=== PATIENT | female | born 1955 | race Caucasian/White ===

== ENCOUNTER 2023-07-13 10:13 | Outpatient (CLI) | payer MEDICARE, BC, SELFPAY ==
--- NOTE | 2023-07-13 10:23 | ECHO_ITS ---
Patient Info Name: Thania Salmon Age: 67 years : 1955 Gender: Female Ht: 60 in Wt: 146 lbs BSA: 1.70 m2 HR: 65 bpm BP: 143 / 87 mmHg Heart Rhythm: Tachycardia Technical Quality: Good Exam Date: 07/13/2023 11:19 AM Exam Location: Echo Lab Patient Status: Outpatient Admit Date: 07/13/2023 Staff Ordering Physician: Avelino Reyes MD Dining Room Manager: Avelino Barron RDCS Attending Provider: Avelino Reyes MD Exam Type: CA echo doppler color flow Study Info Indications - chronic lymphocytic leukemia Complete two-dimensional, color flow and Doppler transthoracic echocardiogram is performed. Summary 1. Complete two-dimensional, color flow and Doppler transthoracic echocardiogram is performed. 2. Left ventricular chamber dimension is normal. 3. Left ventricular systolic function is normal, estimated at 60-65%. 4. The left ventricular diastolic function is grade I diastolic dysfunction. 5. E/e' 8 is minimally elevated. 6. The mitral valve has mildly calcified annulus. 7. There is trace tricuspid valve regurgitation. 8. No pulmonary hypertension, estimated pulmonary arterial systolic pressure is 30 mmHg. Left Ventricle E/e' 8 is minimally elevated. Left ventricular chamber dimension is normal. Left ventricular systolic function is normal, estimated at 60-65%. The left ventricular diastolic function is grade I diastolic dysfunction. Right Ventricle Right ventricular systolic function is normal and with normal TAPSE 2.3 cm. Right ventricular chamber dimension is normal. Left Atria Left atrial chamber dimension is normal. Right Atria Right atrial chamber dimension is normal. Aortic Valve The aortic valve is trileaflet. There is no aortic valve stenosis. There is no aortic valve regurgitation. Pulmonic Valve There is no pulmonic regurgitation. Mitral Valve The mitral valve has mildly calcified annulus. There is no mitral valve stenosis. There is no mitral valve regurgitation. Tricuspid Valve There is trace tricuspid valve regurgitation. No pulmonary hypertension, estimated pulmonary arterial systolic pressure is 30 mmHg. Pericardium/Pleural There is no pericardial effusion. Inferior Vena Cava Normal inferior vena cava with >50% collapse upon inspiration consistent with normal right atrial pressure, 5 mmHg. Aorta The aortic root size at the sinus of Valsalva is normal. Left Ventricular Outflow Tract Name Value Normal LVOT 2D LVOT Diameter 2.0 cm LVOT Doppler LVOT Peak Velocity 161 cm/s LVOT Peak Gradient 10 mmHg LVOT Mean Gradient 7 mmHg LVOT VTI 33 cm LVOT VTI/AV VTI Ratio 0.9 LVOT Stroke Volume 102 ml Pulmonic Valve Name Value Normal RVOT Doppler RVOT Peak Gradient 2 mmHg PV Doppler
== END 2023-07-13 10:14 | disposition home or self-care (01) ==
LOC: CHSIMG 10:16
PROVIDERS: PCP Family Medicine; Visit Provider Internal Medicine Hematology
DX: Z13.6 Encounter for screening for cardiovascular disorders (principal)
CPT/HCPCS: 93306

== ENCOUNTER 2023-08-27 11:29 | Outpatient (CLI) | payer MEDICARE, SELFPAY ==
[2023-08-27 12:11] LABS: Hematocrit 35.3 % (35.0-42.0); Hemoglobin 11.2 g/dL (11.7-13.8); Mean Corpuscular HGB Conc 31.7 g/dL (32.0-36.0); Mean Corpuscular Hemoglobin 31.5 pg (27.0-31.0); Mean Corpuscular Volume 99.4 fL (78.0-102.0); Mean Platelet Volume 9.6 fl (9.2-11.8); Platelet Count Result 135 K/mm3 (150-420); Red Blood Count 3.55 M/mm3 (4.20-5.40); Red Cell Distribution Width 14.1 % (11.6-14.4); White Blood Count 3.2 K/mm3 (4.8-10.8)
[2023-08-27 13:06] LABS: Total Cells Counted 100
[2023-08-27 13:07] LABS: Band Neutrophils Percent 0 % (0-6); Basophils Absolute Manual 0.03 K/mm3 (0-0.1); Basophils Percent Manual 1 % (0-1); Eosinophils Absolute Manual 0.06 K/mm3 (0.02-0.5); Eosinophils Percent Manual 2 % (1-6); Lymphocytes Absolute Manual 1.12 K/mm3 (1.1-4.5); Lymphocytes Percent Manual 35 % (18-44); Metamyelocytes Percent 0 %; Monocytes Absolute Manual 0.19 K/mm3 (0.1-0.90); Monocytes Percent Manual 6 % (3-9); Myelocytes Percent 0 %; Neutrophils Absolute Manual 1.79 K/mm3 (1.7-7.2); Neutrophils Percent Manual 56 % (46-73); Platelet Estimate Adequate (Adequate)
[2023-08-27 13:40] LABS: Alanine Aminotransferase 23 U/L (14-59); Albumin Level 4.1 g/dL (3.4-5.0); Alkaline Phosphatase 66 U/L (46-116); Anion Gap 4 mmol/L (8-16); Aspartate Amino Transferase 19 U/L (15-37); Bilirubin,Total 0.4 mg/dL (0.00-1.00); Blood Urea Nitrogen 13 mg/dL (7-18); Calcium 9.5 mg/dL (8.5-10.1); Carbon Dioxide 34 mmol/L (21-32); Chloride 105 mmol/L (98-108); Estimated Glomerular Filt Rate 56; Glucose 100 mg/dL (70-99); Osmolality Calculated 296 mOsm/kg (285-295); Potassium 4.6 mmol/L (3.5-5.1); Sodium 143 mmol/L (136-145); Total Protein 7.2 g/dL (6.4-8.2); Uric Acid 2.9 mg/dL (2.6-6.0)
== END 2023-08-27 11:30 | disposition home or self-care (01) ==
LOC: CHSLAB 11:32
PROVIDERS: PCP Internal Medicine Hematology; Visit Provider Internal Medicine Hematology
DX: C91.10 Chronic lymphocytic leukemia of B-cell type not having achieved remission (principal)
CPT/HCPCS: 36415; 80053; 84550; 85025

== ENCOUNTER 2023-09-08 10:25 | Outpatient (CLI) | payer MEDICARE, SELFPAY ==
[2023-09-08 10:49] LABS: Hematocrit 32.9 % (35.0-42.0); Hemoglobin 10.9 g/dL (11.7-13.8); Mean Corpuscular HGB Conc 33.1 g/dL (32.0-36.0); Mean Corpuscular Hemoglobin 32.1 pg (27.0-31.0); Mean Corpuscular Volume 96.8 fL (78.0-102.0); Mean Platelet Volume 9.4 fl (9.2-11.8); Platelet Count Result 121 K/mm3 (150-420); Red Cell Distribution Width 14.2 % (11.6-14.4); White Blood Count 3.5 K/mm3 (4.8-10.8)
[2023-09-08 11:10] LABS: Band Neutrophils Percent 0 % (0-6); Basophils Percent Manual 0 % (0-1); Eosinophils Absolute Manual 0.03 K/mm3 (0.02-0.5); Eosinophils Percent Manual 1 % (1-6); Lymphocytes Absolute Manual 0.73 K/mm3 (1.1-4.5); Lymphocytes Percent Manual 21 % (18-44); Monocytes Absolute Manual 0.49 K/mm3 (0.1-0.90); Monocytes Percent Manual 14 % (3-9); Neutrophils Absolute Manual 2.24 K/mm3 (1.7-7.2); Neutrophils Percent Manual 64 % (46-73); Platelet Estimate Adequate (Adequate); Total Cells Counted 100
[2023-09-08 11:42] LABS: Alanine Aminotransferase 8 U/L (14-59); Albumin Level 3.9 g/dL (3.4-5.0); Alkaline Phosphatase 67 U/L (46-116); Anion Gap 9 mmol/L (8-16); Aspartate Amino Transferase 18 U/L (15-37); Bilirubin,Total 0.4 mg/dL (0.00-1.00); Blood Urea Nitrogen 14 mg/dL (7-18); Calcium 8.6 mg/dL (8.5-10.1); Carbon Dioxide 27 mmol/L (21-32); Chloride 102 mmol/L (98-108); Estimated Glomerular Filt Rate > 60; Glucose 101 mg/dL (70-99); Lactate Dehydrogenase 116 U/L (81-234); Osmolality Calculated 286 mOsm/kg (285-295); Potassium 4.5 mmol/L (3.5-5.1); Sodium 138 mmol/L (136-145); Total Protein 7.1 g/dL (6.4-8.2)
== END 2023-09-08 10:26 | disposition home or self-care (01) ==
PROVIDERS: PCP Internal Medicine Hematology; Visit Provider Internal Medicine Hematology
DX: C91.10 Chronic lymphocytic leukemia of B-cell type not having achieved remission (principal)
CPT/HCPCS: 36415; 80053; 83615; 84550; 85025

== ENCOUNTER 2023-09-16 12:12 | Outpatient (CLI) | payer MEDICARE, SELFPAY ==
[2023-09-16 12:30] LABS: Hematocrit 32.9 % (35.0-42.0); Hemoglobin 10.9 g/dL (11.7-13.8); Mean Corpuscular HGB Conc 33.1 g/dL (32.0-36.0); Mean Corpuscular Volume 96.5 fL (78.0-102.0); Mean Platelet Volume 9.6 fl (9.2-11.8); Platelet Count Result 125 K/mm3 (150-420); Red Blood Count 3.41 M/mm3 (4.20-5.40); White Blood Count 2.7 K/mm3 (4.8-10.8)
[2023-09-16 12:44] LABS: Band Neutrophils Percent 0 % (0-6); Eosinophils Absolute Manual 0.02 K/mm3 (0.02-0.5); Eosinophils Percent Manual 1 % (1-6); Lymphocytes Absolute Manual 0.97 K/mm3 (1.1-4.5); Lymphocytes Percent Manual 36 % (18-44); Monocytes Absolute Manual 0.45 K/mm3 (0.1-0.90); Monocytes Percent Manual 17 % (3-9); Neutrophils Absolute Manual 1.24 K/mm3 (1.7-7.2); Neutrophils Percent Manual 46 % (46-73); Platelet Estimate Adequate (Adequate); Total Cells Counted 100
[2023-09-16 13:04] LABS: Alanine Aminotransferase 19 U/L (14-59); Albumin Level 3.7 g/dL (3.4-5.0); Alkaline Phosphatase 62 U/L (46-116); Anion Gap 9 mmol/L (8-16); Aspartate Amino Transferase 16 U/L (15-37); Bilirubin,Total 0.4 mg/dL (0.00-1.00); Blood Urea Nitrogen 11 mg/dL (7-18); Carbon Dioxide 28 mmol/L (21-32); Chloride 105 mmol/L (98-108); Estimated Glomerular Filt Rate > 60; Glucose 106 mg/dL (70-99); Osmolality Calculated 293 mOsm/kg (285-295); Potassium 4.5 mmol/L (3.5-5.1); Sodium 142 mmol/L (136-145); Total Protein 6.8 g/dL (6.4-8.2); Uric Acid 3.1 mg/dL (2.6-6.0)
== END 2023-09-16 12:13 | disposition home or self-care (01) ==
LOC: CHSLAB 12:16
PROVIDERS: PCP Internal Medicine Hematology; Visit Provider Internal Medicine Hematology
DX: C91.10 Chronic lymphocytic leukemia of B-cell type not having achieved remission (principal)
CPT/HCPCS: 36415; 36591; 80053; 84550; 85025

== ENCOUNTER 2023-09-18 08:53 | Outpatient (CLI) | payer MEDICARE, BC, SELFPAY ==
[2023-09-18] MEDS: ACETAMINOPHEN 325 MG TABLET 650 MG PO (09:05)
[2023-09-18] MEDS: diphenhydrAMINE HCl INJ 50 MG/ML VIAL 25 MG IV PUSH (09:10)
[2023-09-18] MEDS: SODIUM CHLORIDE 0.9% IV 250 ML 10 ML IVPB (09:10)
[2023-09-18] MEDS: FAMOTIDINE 20 MG/2 ML VIAL IV PUSH (09:12)
[2023-09-18] MEDS: DEXAMETHASONE SOD PHOS INJ 4 MG/ML VIAL 12 MG IV PUSH (09:15)
[2023-09-18 09:58] VITALS: BP 112/59; PULSE 88; RESP 14; TEMP 36.8; O2SAT 99; BMI 24.2
[2023-09-18 10:39] VITALS: BP 119/70; PULSE 88; RESP 14; O2SAT 99
[2023-09-18 11:31] VITALS: BP 101/65; PULSE 88; RESP 14; TEMP 36.8; O2SAT 98
[2023-09-18] MEDS: HEPARIN SODIUM LOCK FLUSH 500 UNITS/5 ML SYRINGE IV PUSH (13:30)
[2023-09-18 13:33] VITALS: BP 114/69; PULSE 88; RESP 14; TEMP 36.8; O2SAT 98
--- NOTE | 2023-09-18 13:34 | PC.NURSE ---
Patient here for cycle 2 of 6 of Obinutuzumab infusion. Education given. All concerns answered. Patient has had infusion in up at [facility] and reports having no problems. Obinutuzumab infusion administered. Was able to increase rate 100 ml/hr each time up to 400 ml/hr without difficulty. Tolerated well. Has appt with Dr. Reyes in Sep. and he will decide if ok for cycle 3. Patient will be notify to schedule. Safe exit of hospital per self/ambulatory with .
== END 2023-09-18 08:54 | disposition home or self-care (01) ==
LOC: CHSTREATRM 08:56
PROVIDERS: Visit Provider Internal Medicine Hematology
DX: Z51.11 Encounter for antineoplastic chemotherapy (principal); C91.10 Chronic lymphocytic leukemia of B-cell type not having achieved remission
CPT/HCPCS: 96375; 96413; 96415; A9270; J1100; J1200; J7030; J7050; J9301

== ENCOUNTER 2023-09-28 11:12 | Outpatient (CLI) | payer MEDICARE, BC, SELFPAY ==
[2023-09-28 11:37] LABS: Hematocrit 33.4 % (35.0-42.0); Hemoglobin 10.7 g/dL (11.7-13.8); Mean Corpuscular Volume 96.8 fL (78.0-102.0); Mean Platelet Volume 9.7 fl (9.2-11.8); Platelet Count Result 139 K/mm3 (150-420); Red Blood Count 3.45 M/mm3 (4.20-5.40); Red Cell Distribution Width 13.5 % (11.6-14.4)
[2023-09-28 12:16] LABS: Band Neutrophils Percent 0 % (0-6); Basophils Percent Manual 0 % (0-1); Eosinophils Percent Manual 0 % (1-6); Lymphocytes Percent Manual 35 % (18-44); Monocytes Absolute Manual 0.26 K/mm3 (0.1-0.90); Monocytes Percent Manual 13 % (3-9); Neutrophils Percent Manual 55 % (46-73); Platelet Estimate Adequate (Adequate); Total Cells Counted 100
[2023-09-28 12:19] LABS: Alanine Aminotransferase 13 U/L (14-59); Albumin Level 3.6 g/dL (3.4-5.0); Alkaline Phosphatase 59 U/L (46-116); Aspartate Amino Transferase 13 U/L (15-37); Bilirubin,Total 0.5 mg/dL (0.00-1.00); Blood Urea Nitrogen 18 mg/dL (7-18); Calcium 8.9 mg/dL (8.5-10.1); Estimated Glomerular Filt Rate 49; Glucose 105 mg/dL (70-99); Total Protein 7.1 g/dL (6.4-8.2)
[2023-09-28 12:20] LABS: Chloride 105 mmol/L (98-108); Osmolality Calculated 291 mOsm/kg (285-295); Potassium 4.4 mmol/L (3.5-5.1); Sodium 140 mmol/L (136-145)
[2023-09-28 12:21] LABS: Anion Gap 6 mmol/L (8-16); Carbon Dioxide 29 mmol/L (21-32); Uric Acid 3.9 mg/dL (2.6-6.0)
== END 2023-09-28 11:13 | disposition home or self-care (01) ==
LOC: CHSLAB 11:16
PROVIDERS: Visit Provider Internal Medicine Hematology
DX: C91.10 Chronic lymphocytic leukemia of B-cell type not having achieved remission (principal)
CPT/HCPCS: 36415; 80053; 84550; 85025

== ENCOUNTER 2023-09-30 09:59 | Outpatient (CLI) | payer MEDICARE, BC, SELFPAY ==
--- NOTE | ~2023-09-30 | CT_ITS ---
EXAMINATION: CT abdomen pelvis wo con DATE: 09/30/2023 10:30 INDICATION: Back pain radiating to the left side. Chronic lymphocytic leukemia. TECHNIQUE: Computed tomography (CT) of the abdomen and pelvis was performed without intravenous contr ast. Automated exposure control and iterative reconstruction technique were employed. The dose-length product was 250.11 mGy-cm. COMPARISON: None. FINDINGS: The visualized portions of the lung bases demonstrate mild atelectasis. No pleural effusion . The heart size is normal. No pericardial effusion. There is a small sliding hiatal hernia. The live r is normal. The gallbladder is normal in size and contains gallstones. The spleen is normal in size. The pancreas and adrenal glands are normal. There is a 2 mm stone in right kidney. There is a 2 mm s tone in left kidney. There are no dilated loops of bowel. The appendix is normal. Aortic atherosclero sis is noted. There is mild gastrohepatic, left para-aortic, right common iliac, and bilateral traffic coordinator al iliac lymphadenopathy. For example, a right external iliac node measures 3.3 x 1.3 cm. There is fa t stranding in the retroperitoneum along the lymph node chains, likely treated disease. There is a co mpression fracture of L1, likely chronic. There is a burst fracture of L5, likely subacute or chronic . There is mild lumbar spondylosis. IMPRESSION: 1. Bilateral nonobstructing kidney stones. 2. Abdominal and pelvic lymphadenopathy, consistent with chronic lymphocytic leukemia. 3. Small sliding hiatal hernia. Reviewed, dictated and finalized at location E. NISTRATIVE SALES ASSISTANT IMPRESSION: 1. Bilateral nonobstructing kidney stones. 2. Abdominal and pelvic lymphadenopathy, consistent with chronic lymphocytic le ukemia. 3. Small sliding hiatal hernia.
[2023-09-30] MEDS: SODIUM CHLORIDE 0.9% IV 1,000 ML 500 ML IVPB (10:25)
[2023-09-30 10:35] VITALS: BP 125/70; PULSE 88; RESP 14; TEMP 36.6; O2SAT 98
[2023-09-30 10:44] VITALS: BMI 23.8
[2023-09-30 10:57] LABS: Hematocrit 33.5 % (35.0-42.0); Hemoglobin 10.9 g/dL (11.7-13.8); Mean Corpuscular HGB Conc 32.5 g/dL (32.0-36.0); Mean Corpuscular Hemoglobin 31.4 pg (27.0-31.0); Mean Corpuscular Volume 96.5 fL (78.0-102.0); Platelet Count Result 140 K/mm3 (150-420); Red Blood Count 3.47 M/mm3 (4.20-5.40); Red Cell Distribution Width 13.2 % (11.6-14.4); White Blood Count 2.5 K/mm3 (4.8-10.8)
[2023-09-30 11:12] LABS: Partial Thromboplastin Time 27.8 SEC (23.90-30.70)
[2023-09-30 11:29] LABS: Band Neutrophils Percent 0 % (0-6); Basophils Percent Manual 0 % (0-1); Eosinophils Percent Manual 0 % (1-6); Lymphocytes Absolute Manual 0.47 K/mm3 (1.1-4.5); Lymphocytes Percent Manual 19 % (18-44); Monocytes Absolute Manual 0.35 K/mm3 (0.1-0.90); Monocytes Percent Manual 14 % (3-9); Neutrophils Absolute Manual 1.67 K/mm3 (1.7-7.2); Neutrophils Percent Manual 67 % (46-73); Platelet Estimate Adequate (Adequate); Total Cells Counted 100
[2023-09-30 12:14] LABS: Alanine Aminotransferase 15 U/L (14-59); Albumin Level 3.9 g/dL (3.4-5.0); Alkaline Phosphatase 61 U/L (46-116); Anion Gap 8 mmol/L (8-16); Aspartate Amino Transferase 14 U/L (15-37); Bilirubin,Total 0.4 mg/dL (0.00-1.00); Blood Urea Nitrogen 18 mg/dL (7-18); Calcium 8.9 mg/dL (8.5-10.1); Carbon Dioxide 27 mmol/L (21-32); Chloride 107 mmol/L (98-108); Estimated CRCL calculation 41 ml/min; Estimated Glomerular Filt Rate 53; Ferritin 34 ng/mL (8-252); Glucose 105 mg/dL (70-99); Iron 16 ug/dL (50-170); Lactate Dehydrogenase 118 U/L (81-234); Osmolality Calculated 295 mOsm/kg (285-295); Percent Iron Saturation 6 % (12-57); Potassium 4.1 mmol/L (3.5-5.1); Sodium 142 mmol/L (136-145); Total Protein 7.1 g/dL (6.4-8.2)
[2023-09-30] MEDS: HEPARIN SODIUM LOCK FLUSH 500 UNITS/5 ML SYRINGE IV PUSH (12:25)
--- NOTE | 2023-09-30 12:28 | PC.NURSE ---
Patient here for 1 Liter of NS hydration. Just saw Dr. Reyes in clinic and he wanted her have IV hydration, labs, CT scan abd/pelvis r/t her complaining of back pain. IV 1 Liter normal saline administered. SEE MAR. Tolerated well. Will return 10/19/23 at 0900 for cycle 2 immunotherapy tx. Safe exit of hospital per ambulatory with .
[2023-09-30 12:43] LABS: Appearance Urine Clear (Clear); Bilirubin Urine Negative (Negative); Blood Urine Negative (Negative); Color Urine Yellow (Yellow); Glucose Urine UA Negative (Negative); Ketones Urine Negative (Negative); Leukocyte Esterase Ur Negative LEU/UL (Negative); Nitrate Urine Negative (Negative); Protein Urine Negative (Negative); Specific Grav Ur 1.025 (1.010-1.020); Urobilinogen Urine 0.2 mg/dL (0.2-1.0); pH Urine 5.5 (5.0-8.0)
[2023-09-30 12:44] LABS: Add Urine Microscopic? NO
== END 2023-09-30 10:00 | disposition home or self-care (01) ==
LOC: CHSTREATRM 10:03
PROVIDERS: PCP Internal Medicine Hematology; Visit Provider Internal Medicine Hematology
DX: C91.10 Chronic lymphocytic leukemia of B-cell type not having achieved remission (principal); M54.9 Dorsalgia, unspecified; N20.0 Calculus of kidney; K44.9 Diaphragmatic hernia without obstruction or gangrene
CPT/HCPCS: 36415; 74176; 80053; 81003; 82728; 83540; 83550; 83615; 85025; 85730; 96360; 96361; J7030

== ENCOUNTER 2023-10-12 08:54 | Outpatient (CLI) | payer MEDICARE, BC, SELFPAY ==
[2023-10-12] MEDS: SODIUM CHLORIDE 0.9% IV 1,000 ML 500 ML IV CONT (09:15)
[2023-10-12 09:20] VITALS: BP 103/60; PULSE 78; RESP 14; TEMP 36.7; O2SAT 98; BMI 23.8
[2023-10-12 09:26] LABS: Hematocrit 34.3 % (35.0-42.0); Hemoglobin 10.9 g/dL (11.7-13.8); Mean Corpuscular HGB Conc 31.8 g/dL (32.0-36.0); Mean Corpuscular Hemoglobin 30.4 pg (27.0-31.0); Mean Corpuscular Volume 95.8 fL (78.0-102.0); Platelet Count Result 128 K/mm3 (150-420); Red Blood Count 3.58 M/mm3 (4.20-5.40); Red Cell Distribution Width 12.8 % (11.6-14.4); White Blood Count 2.1 K/mm3 (4.8-10.8)
[2023-10-12] MEDS: HEPARIN SODIUM LOCK FLUSH 500 UNITS/5 ML SYRINGE IV PUSH (09:33)
[2023-10-12 09:42] LABS: Alanine Aminotransferase 32 U/L (14-59); Albumin Level 3.7 g/dL (3.4-5.0); Alkaline Phosphatase 78 U/L (46-116); Anion Gap 7 mmol/L (8-16); Aspartate Amino Transferase 27 U/L (15-37); Bilirubin,Total 0.3 mg/dL (0.00-1.00); Blood Urea Nitrogen 16 mg/dL (7-18); Carbon Dioxide 28 mmol/L (21-32); Chloride 106 mmol/L (98-108); Estimated CRCL calculation 46 ml/min; Estimated Glomerular Filt Rate > 60; Glucose 97 mg/dL (70-99); Osmolality Calculated 293 mOsm/kg (285-295); Potassium 4.6 mmol/L (3.5-5.1); Sodium 141 mmol/L (136-145)
[2023-10-12 09:50] LABS: Band Neutrophils Percent 0 % (0-6); Basophils Percent Manual 0 % (0-1); Eosinophils Absolute Manual 0.02 K/mm3 (0.02-0.5); Eosinophils Percent Manual 1 % (1-6); Lymphocytes Absolute Manual 0.94 K/mm3 (1.1-4.5); Lymphocytes Percent Manual 45 % (18-44); Monocytes Absolute Manual 0.25 K/mm3 (0.1-0.90); Monocytes Percent Manual 12 % (3-9); Neutrophils Absolute Manual 0.88 K/mm3 (1.7-7.2); Neutrophils Percent Manual 42 % (46-73); Platelet Estimate Adequate (Adequate); Total Cells Counted 100
--- NOTE | 2023-10-12 13:14 | PC.NURSE ---
Patient here for 1 Liter of NS to infuse over 2 hours. Education given. No concerns voiced. Infusion administered. SEE MAR. Tolerated well. Safe exit of hospital per self/ambulatory.
== END 2023-10-12 11:15 | disposition home or self-care (01) ==
LOC: CHSLAB 09:00
PROVIDERS: PCP Internal Medicine Hematology; Visit Provider Internal Medicine Hematology
DX: C91.10 Chronic lymphocytic leukemia of B-cell type not having achieved remission (principal)
CPT/HCPCS: 36415; 80053; 85025; 96360; 96361; J7030

== ENCOUNTER 2023-10-19 08:59 | Outpatient (CLI) | payer MEDICARE, BC, SELFPAY ==
[2023-10-19] MEDS: SODIUM CHLORIDE 0.9% IV 250 ML 10 ML IVPB (09:15)
[2023-10-19] MEDS: FAMOTIDINE 20 MG/2 ML VIAL IV PUSH (09:25)
[2023-10-19] MEDS: diphenhydrAMINE HCl INJ 50 MG/ML VIAL 25 MG IV PUSH (09:25)
[2023-10-19 09:27] LABS: Hemoglobin 10.9 g/dL (11.7-13.8); Mean Corpuscular HGB Conc 32.1 g/dL (32.0-36.0); Mean Corpuscular Hemoglobin 30.4 pg (27.0-31.0); Mean Platelet Volume 9.9 fl (9.2-11.8); Platelet Count Result 121 K/mm3 (150-420); Red Blood Count 3.58 M/mm3 (4.20-5.40); Red Cell Distribution Width 13.1 % (11.6-14.4); White Blood Count 2.8 K/mm3 (4.8-10.8)
[2023-10-19 09:28] VITALS: BP 107/60; PULSE 78; RESP 14; TEMP 36.6; O2SAT 98; BMI 23.7
[2023-10-19] MEDS: dexAMETHasone SOD PHOS INJ 4 MG/ML VIAL 12 MG IV PUSH (09:30)
[2023-10-19 09:45] LABS: Band Neutrophils Percent 0 % (0-6); Lymphocytes Absolute Manual 0.64 K/mm3 (1.1-4.5); Lymphocytes Percent Manual 23 % (18-44); Monocytes Absolute Manual 0.25 K/mm3 (0.1-0.90); Monocytes Percent Manual 9 % (3-9); Neutrophils Percent Manual 68 % (46-73); Total Cells Counted 100
[2023-10-19 09:53] LABS: Alanine Aminotransferase 17 U/L (14-59); Albumin Level 3.7 g/dL (3.4-5.0); Alkaline Phosphatase 72 U/L (46-116); Anion Gap 9 mmol/L (8-16); Aspartate Amino Transferase 13 U/L (15-37); Bilirubin,Total 0.4 mg/dL (0.00-1.00); Blood Urea Nitrogen 20 mg/dL (7-18); Calcium 8.9 mg/dL (8.5-10.1); Carbon Dioxide 26 mmol/L (21-32); Chloride 106 mmol/L (98-108); Estimated CRCL calculation 49 ml/min; Estimated Glomerular Filt Rate > 60; Glucose 106 mg/dL (70-99); Lactate Dehydrogenase 141 U/L (81-234); Osmolality Calculated 294 mOsm/kg (285-295); Potassium 4.3 mmol/L (3.5-5.1); Sodium 141 mmol/L (136-145); Total Protein 7.1 g/dL (6.4-8.2)
[2023-10-19] MEDS: ACETAMINOPHEN 325 MG TABLET 650 MG PO (10:09)
[2023-10-19 10:30] VITALS: BP 114/67; PULSE 72; RESP 14; TEMP 36.6; O2SAT 98
[2023-10-19 11:00] VITALS: BP 117/60; PULSE 72; RESP 14
[2023-10-19 13:15] VITALS: BP 116/67; PULSE 72; RESP 14; TEMP 36.6; O2SAT 99
[2023-10-19] MEDS: HEPARIN SODIUM LOCK FLUSH 500 UNITS/5 ML SYRINGE IV PUSH (13:15)
--- NOTE | 2023-10-19 14:12 | PC.NURSE ---
Patient here for cycle 2 chemo Gazyva infusion. Education reviewed with patient. All concerns voiced. Labs drawn/reviewed/ok'd for infusion. Chemo regimen administered. SEE MAR. Tolerated well. Will return 10/26/23 at 1000 for 1 L NS -hydration as ordered. Safe exit of hospital with /ambulatory.
== END 2023-10-19 13:30 | disposition home or self-care (01) ==
LOC: CHSTREATRM 09:02
PROVIDERS: Visit Provider Internal Medicine Hematology
DX: Z51.11 Encounter for antineoplastic chemotherapy (principal); C91.10 Chronic lymphocytic leukemia of B-cell type not having achieved remission
CPT/HCPCS: 36415; 36591; 80053; 83615; 84100; 84550; 85025; 96375; 96413; 96415; A9270; J1100; J1200; J7030; J7050; J9301

== ENCOUNTER 2023-10-26 09:58 | Outpatient (CLI) | payer MEDICARE, BC, SELFPAY ==
[2023-10-26 10:00] VITALS: BP 126/74; PULSE 72; RESP 14; TEMP 36.4; O2SAT 100; BMI 23.7
[2023-10-26] MEDS: SODIUM CHLORIDE 0.9% IV 1,000 ML 500 ML IVPB (10:00)
[2023-10-26 11:48] LABS: Immature Platelet Fraction Pct 1.9 % (1.0-7.0); Mean Corpuscular HGB Conc 32.3 g/dL (32.0-36.0); Mean Corpuscular Hemoglobin 30.8 pg (27.0-31.0); Mean Corpuscular Volume 95.4 fL (78.0-102.0); Mean Platelet Volume 10.1 fl (9.2-11.8); Platelet Count Result 83 K/mm3 (150-420); Red Blood Count 3.25 M/mm3 (4.20-5.40); Red Cell Distribution Width 13.2 % (11.6-14.4); White Blood Count 1.6 K/mm3 (4.8-10.8)
[2023-10-26] MEDS: HEPARIN SODIUM LOCK FLUSH 500 UNITS/5 ML SYRINGE IV PUSH (11:50)
--- NOTE | 2023-10-26 11:55 | PC.NURSE ---
Patient here for 1 L Normal Saline over 2 hours and Blood work. Both explained to patient. Labs drawn and 1 L Normal Saline administered. SEE MAR. Tolerated both well. Will see Dr. Reyes in clinic on 10/28/23 this week. Safe exit of hospital per self/ambulatory.
[2023-10-26 12:07] LABS: Band Neutrophils Percent 0 % (0-6); Lymphocytes Absolute Manual 0.73 K/mm3 (1.1-4.5); Lymphocytes Percent Manual 46 % (18-44); Monocytes Percent Manual 13 % (3-9); Neutrophils Absolute Manual 0.65 K/mm3 (1.7-7.2); Neutrophils Percent Manual 41 % (46-73); Total Cells Counted 100
[2023-10-26 12:08] LABS: Alanine Aminotransferase 18 U/L (14-59); Albumin Level 3.4 g/dL (3.4-5.0); Alkaline Phosphatase 60 U/L (46-116); Anion Gap 6 mmol/L (8-16); Aspartate Amino Transferase 17 U/L (15-37); Bilirubin,Total 0.3 mg/dL (0.00-1.00); Blood Urea Nitrogen 15 mg/dL (7-18); Calcium 8.3 mg/dL (8.5-10.1); Carbon Dioxide 28 mmol/L (21-32); Chloride 106 mmol/L (98-108); Estimated CRCL calculation 56 ml/min; Estimated Glomerular Filt Rate > 60; Glucose 93 mg/dL (70-99); Osmolality Calculated 290 mOsm/kg (285-295); Platelet Estimate Decreased (Adequate); Potassium 4.3 mmol/L (3.5-5.1); Sodium 140 mmol/L (136-145); Total Protein 6.3 g/dL (6.4-8.2)
== END 2023-10-26 12:01 | disposition home or self-care (01) ==
PROVIDERS: Visit Provider Internal Medicine Hematology
DX: C91.10 Chronic lymphocytic leukemia of B-cell type not having achieved remission (principal)
CPT/HCPCS: 36415; 36591; 80053; 85025; 85055; 96360; 96361; J7030

== ENCOUNTER 2023-10-28 12:56 | Outpatient (CLI) | payer MEDICARE, BC, SELFPAY ==
[2023-10-28 13:00] VITALS: BP 123/67; PULSE 92; RESP 16; TEMP 36.6; O2SAT 98
[2023-10-28] MEDS: SODIUM CHLORIDE 0.9% IV 1,000 ML 500 ML IVPB (13:00)
[2023-10-28] MEDS: FILGRASTIM-SNDZ 300 MCG/0.5 ML SYRINGE SUB-Q (13:37)
[2023-10-28] MEDS: HEPARIN SODIUM LOCK FLUSH 500 UNITS/5 ML SYRINGE IV PUSH (13:38)
[2023-10-28 13:44] VITALS: BMI 23.7
--- NOTE | 2023-10-28 15:24 | PC.NURSE ---
Patient was here for Zarxio injection and 1 L NS IV fluids. Education on Zarxio given. All concern/questions answered. IV NS 1L administered see OCT. Tolerated both well. Will return 10/28 and 10/30/23 for Zarxio injections. 11/02/23 for blood work and possible IV fluids. Safe exit of hospital per self/ambulatory.
== END 2023-10-28 13:15 | disposition home or self-care (01) ==
PROVIDERS: Visit Provider Internal Medicine Hematology
DX: D70.9 Neutropenia, unspecified (principal); C91.10 Chronic lymphocytic leukemia of B-cell type not having achieved remission
CPT/HCPCS: 96360; 96361; 96372; J7030; Q5101

== ENCOUNTER 2023-10-29 11:29 | Outpatient (CLI) | payer MEDICARE, BC, SELFPAY ==
[2023-10-29 12:08] VITALS: BP 113/72; PULSE 89; RESP 14; TEMP 36.6; O2SAT 98; BMI 23.7
[2023-10-29] MEDS: FILGRASTIM-SNDZ 300 MCG/0.5 ML SYRINGE SUB-Q (12:12)
--- NOTE | 2023-10-29 12:15 | PC.NURSE ---
Patient here for Zarxio injection. Education given. All concerns voiced answered. Reports just feeling tired today. Zarxio injection administered. see MAR. Tolerated well. Will return 10/30/23 for last Zarxio injection. Safe exit of hospital per self/ambulatory.
== END 2023-10-29 12:17 | disposition home or self-care (01) ==
LOC: CHSTREATRM 11:34
PROVIDERS: PCP Internal Medicine Hematology; Visit Provider Internal Medicine Hematology
DX: D70.8 Other neutropenia (principal); C91.10 Chronic lymphocytic leukemia of B-cell type not having achieved remission
CPT/HCPCS: 96372; Q5101

== ENCOUNTER 2023-10-30 10:38 | Outpatient (CLI) | payer MEDICARE, BC, SELFPAY ==
[2023-10-30 10:45] VITALS: BMI 23.7
[2023-10-30] MEDS: FILGRASTIM-SNDZ 300 MCG/0.5 ML SYRINGE SUB-Q (10:50)
[2023-10-30 10:51] VITALS: BP 111/67; PULSE 92; RESP 14; TEMP 36.6; O2SAT 98
--- NOTE | 2023-10-30 10:55 | PC.NURSE ---
Patient here for Zarxio injection #3 of 3. Reviewed education with patient on med. No concerns voiced. Zarxio injection administered. SEE MAR. Tolerated well. Will return on 11/02/23 for blood work. Safe exit of hospital per self/ambulatory.
== END 2023-10-30 10:57 | disposition home or self-care (01) ==
LOC: CHSTREATRM 10:42
PROVIDERS: PCP Internal Medicine Hematology; Visit Provider Internal Medicine Hematology
DX: D70.8 Other neutropenia (principal); C91.10 Chronic lymphocytic leukemia of B-cell type not having achieved remission
CPT/HCPCS: 96372; Q5101

== ENCOUNTER 2023-11-02 09:25 | Outpatient (CLI) | payer MEDICARE, BC, SELFPAY ==
[2023-11-02 09:50] LABS: Hematocrit 36.8 % (35.0-42.0); Hemoglobin 11.7 g/dL (11.7-13.8); Mean Corpuscular HGB Conc 31.8 g/dL (32.0-36.0); Mean Corpuscular Hemoglobin 30.4 pg (27.0-31.0); Mean Corpuscular Volume 95.6 fL (78.0-102.0); Mean Platelet Volume 10.2 fl (9.2-11.8); Platelet Count Result 120 K/mm3 (150-420); Red Blood Count 3.85 M/mm3 (4.20-5.40); Red Cell Distribution Width 13.5 % (11.6-14.4); White Blood Count 2.1 K/mm3 (4.8-10.8)
[2023-11-02 10:04] LABS: Band Neutrophils Percent 1 % (0-6); Lymphocytes Absolute Manual 0.69 K/mm3 (1.1-4.5); Lymphocytes Percent Manual 33 % (18-44); Monocytes Absolute Manual 0.33 K/mm3 (0.1-0.90); Monocytes Percent Manual 16 % (3-9); Neutrophils Absolute Manual 1.07 K/mm3 (1.7-7.2); Neutrophils Percent Manual 50 % (46-73); Platelet Estimate Adequate (Adequate); Total Cells Counted 100
[2023-11-02 10:09] VITALS: BMI 23.7
[2023-11-02 10:14] VITALS: BP 113/62; PULSE 72; RESP 14; TEMP 36.6; O2SAT 98
[2023-11-02] MEDS: HEPARIN SODIUM LOCK FLUSH 500 UNITS/5 ML SYRINGE (11:02)
[2023-11-02] MEDS: FILGRASTIM-SNDZ 300 MCG/0.5 ML SYRINGE SUB-Q (11:02)
--- NOTE | 2023-11-02 11:13 | PC.NURSE ---
Patient here for blood work/lab cbc. Labs drawn from port a cath. Patient received Zarxio injections 10/27--04/16. Labs reviewed WBC 2.1 with neutrophils 50 and bands 1 ANC 1071. Call results to Dr. Reyes. Order received to give 3 more Zarxio injections 11/01-- and repeat labs on 11/09/23. Zarxio injection administered. SEE MAR. Tolerated well. Safe exit of hospital per self/ambulatory.
== END 2023-11-02 11:23 | disposition home or self-care (01) ==
LOC: CHSTREATRM 09:30
PROVIDERS: Visit Provider Internal Medicine Hematology
DX: D70.8 Other neutropenia (principal); C91.10 Chronic lymphocytic leukemia of B-cell type not having achieved remission
CPT/HCPCS: 36415; 36591; 85025; 96372; Q5101

== ENCOUNTER 2023-11-03 10:24 | Outpatient (CLI) | payer MEDICARE, BC, SELFPAY ==
[2023-11-03 10:32] VITALS: BP 123/75; PULSE 80; RESP 16; TEMP 36.7; O2SAT 98; BMI 23.7
[2023-11-03] MEDS: FILGRASTIM-SNDZ 300 MCG/0.5 ML SYRINGE SUB-Q (10:45)
--- NOTE | 2023-11-03 10:49 | PC.NURSE ---
Patient here for #2 of 3 Zarxio injections. Reports just a little achy today, otherwise feeling pretty good. Education given. No concerns voiced. Zarxio injection administered. SEE MAR. Will return #3 of 3 tomorrow 11/04/23. Safe exit of hospital per self/ambulatory.
== END 2023-11-03 10:51 | disposition home or self-care (01) ==
LOC: CHSTREATRM 10:29
PROVIDERS: PCP Internal Medicine Hematology; Visit Provider Internal Medicine Hematology
DX: D70.8 Other neutropenia (principal); C91.10 Chronic lymphocytic leukemia of B-cell type not having achieved remission
CPT/HCPCS: 96372; Q5101

== ENCOUNTER 2023-11-04 10:23 | Outpatient (CLI) | payer MEDICARE, BC, SELFPAY ==
[2023-11-04] MEDS: FILGRASTIM-SNDZ 300 MCG/0.5 ML SYRINGE SUB-Q (10:48)
[2023-11-04 10:50] VITALS: BMI 24.0
[2023-11-04 13:00] VITALS: BP 120/74; PULSE 78; RESP 16; TEMP 36.1; O2SAT 98
== END 2023-11-04 10:24 | disposition home or self-care (01) ==
LOC: CHSTREATRM 10:28
PROVIDERS: Visit Provider Internal Medicine Hematology
DX: D70.8 Other neutropenia (principal)
CPT/HCPCS: 96372; Q5101

== ENCOUNTER 2023-11-09 10:26 | Outpatient (CLI) | payer MEDICARE, BC, SELFPAY ==
[2023-11-09 10:55] VITALS: BP 130/71; PULSE 78; RESP 14; TEMP 36.4; O2SAT 98; BMI 23.7
--- NOTE | 2023-11-09 10:57 | PC.NURSE ---
Patient here for labs to be drawn from port. No concerns voiced. Reports feeling pretty good. Vital signs good. Will see Dr. Reyes in clinic on Thursday11/11/23. Next chemo on Thursday11/16/23 at 0900.
[2023-11-09 11:08] LABS: Hematocrit 36.7 % (35.0-42.0); Hemoglobin 11.9 g/dL (11.7-13.8); Mean Corpuscular HGB Conc 32.4 g/dL (32-36); Mean Corpuscular Hemoglobin 30.9 pg (27.0-31.0); Mean Corpuscular Volume 95.3 fL (78.0-102.0); Mean Platelet Volume 9.7 fl (9.2-11.8); Platelet Count Result 122 K/mm3 (150-420); Red Blood Count 3.85 M/mm3 (4.20-5.40); Red Cell Distribution Width 13.9 % (11.6-14.4); White Blood Count 1.9 K/mm3 (4.8-10.8)
[2023-11-09 11:27] LABS: Alanine Aminotransferase 21 U/L (14-59); Albumin Level 3.9 g/dL (3.4-5.0); Alkaline Phosphatase 77 U/L (46-116); Anion Gap 10 mmol/L (8-16); Aspartate Amino Transferase 19 U/L (15-37); Bilirubin,Total 0.4 mg/dL (0.00-1.00); Blood Urea Nitrogen 14 mg/dL (7-18); Calcium 9.1 mg/dL (8.5-10.1); Carbon Dioxide 27 mmol/L (21-32); Chloride 106 mmol/L (98-108); Estimated CRCL calculation 49 ml/min; Estimated Glomerular Filt Rate > 60; Glucose 101 mg/dL (70-99); Osmolality Calculated 296 mOsm/kg (285-295); Potassium 4.4 mmol/L (3.5-5.1); Sodium 143 mmol/L (136-145); Uric Acid 2.8 mg/dL (2.6-6.0)
[2023-11-09 11:28] LABS: Band Neutrophils Percent 0 % (0-6); Lymphocytes Absolute Manual 0.85 K/mm3 (1.1-4.5); Lymphocytes Percent Manual 45 % (18-44); Monocytes Absolute Manual 0.15 K/mm3 (0.1-0.90); Monocytes Percent Manual 8 % (3-9); Neutrophils Absolute Manual 0.89 K/mm3 (1.7-7.2); Neutrophils Percent Manual 47 % (46-73); Platelet Estimate Adequate (Adequate); Total Cells Counted 100
[2023-11-12 09:38] LABS: Immunoglobulin A 182 mg/dL (70-320); Immunoglobulin G 1271 mg/dL (600-1540); Immunoglobulin M 24 mg/dL (50-300)
== END 2023-11-09 10:27 | disposition home or self-care (01) ==
LOC: CHSTREATRM 10:33
PROVIDERS: Visit Provider Internal Medicine Hematology
DX: D70.8 Other neutropenia (principal); C91.10 Chronic lymphocytic leukemia of B-cell type not having achieved remission
CPT/HCPCS: 36415; 36591; 80053; 82784; 84550; 85025

== ENCOUNTER 2023-11-11 10:06 | Outpatient (CLI) | payer MEDICARE, BC, SELFPAY ==
[2023-11-11 10:18] VITALS: BMI 23.5
[2023-11-11 10:19] VITALS: BP 137/75; PULSE 88; RESP 14; TEMP 36.3; O2SAT 99
[2023-11-11] MEDS: FILGRASTIM-SNDZ 300 MCG/0.5 ML SYRINGE SUB-Q (10:22)
--- NOTE | 2023-11-11 10:28 | PC.NURSE ---
Patient here for Zarxio injections for next three days after see Dr. Garcia in Clinic this a.m. Education given. No concerns voiced. Zarxio injection administered. Tolerated well. Will return 11/12/23 at 1030 for next injection. Safe exit of hospital per self/ambulatory.
== END 2023-11-11 10:30 | disposition home or self-care (01) ==
LOC: CHSTREATRM 10:11
PROVIDERS: Visit Provider Internal Medicine Hematology
DX: D70.8 Other neutropenia (principal); C91.10 Chronic lymphocytic leukemia of B-cell type not having achieved remission
CPT/HCPCS: 96372; Q5101

== ENCOUNTER 2023-11-12 10:23 | Outpatient (CLI) | payer MEDICARE, BC, SELFPAY ==
[2023-11-12 10:43] VITALS: BP 117/69; PULSE 80; RESP 14; TEMP 36.6; O2SAT 98; BMI 23.7
[2023-11-12] MEDS: FILGRASTIM-SNDZ 300 MCG/0.5 ML SYRINGE SUB-Q (10:45)
--- NOTE | 2023-11-12 10:45 | PC.NURSE ---
Patient here #2 of 3 Zarxio injections. Has no concerns. Ongoing education continues of her disease processes and tx's. Injection administered. SEE MAR. Tolerated well. Will return tomorrow 11/13/23 for #3 injection. Safe exit of hospital per self/ambulatory.
== END 2023-11-12 10:47 | disposition home or self-care (01) ==
LOC: CHSTREATRM 10:28
PROVIDERS: PCP Internal Medicine Hematology; Visit Provider Internal Medicine Hematology
DX: D70.8 Other neutropenia (principal); C91.10 Chronic lymphocytic leukemia of B-cell type not having achieved remission
CPT/HCPCS: 96372; Q5101

== ENCOUNTER 2023-11-13 10:25 | Outpatient (CLI) | payer MEDICARE, BC, SELFPAY ==
[2023-11-13 10:50] VITALS: BP 120/71; PULSE 80; RESP 14; TEMP 36.6; O2SAT 98; BMI 23.8
[2023-11-13] MEDS: FILGRASTIM-SNDZ 300 MCG/0.5 ML SYRINGE SUB-Q (11:08)
--- NOTE | 2023-11-13 11:09 | PC.NURSE ---
Patient here for #3 of 3 Zarxio injections this time around. No concerns voiced. Injection administered. SEE MAR. Tolerated well. Safe exit of hospital per self/ambulatory. Will return 11/16/23 at 0930 for chemo cycle 3.
== END 2023-11-13 11:11 | disposition home or self-care (01) ==
LOC: CHSTREATRM 10:29
PROVIDERS: Visit Provider Internal Medicine Hematology
DX: D70.8 Other neutropenia (principal); C91.10 Chronic lymphocytic leukemia of B-cell type not having achieved remission
CPT/HCPCS: 96372; Q5101

== ENCOUNTER 2023-11-16 09:16 | Outpatient (CLI) | payer MEDICARE, BC, SELFPAY ==
[2023-11-16] MEDS: SODIUM CHLORIDE 0.9% IV 250 ML 10 ML IVPB (09:30)
[2023-11-16 09:43] LABS: Hematocrit 36.7 % (35.0-42.0); Hemoglobin 11.8 g/dL (11.7-13.8); Mean Corpuscular HGB Conc 32.2 g/dL (32-36); Mean Corpuscular Hemoglobin 30.5 pg (27.0-31.0); Mean Corpuscular Volume 94.8 fL (78.0-102.0); Mean Platelet Volume 9.5 fl (9.2-11.8); Platelet Count Result 155 K/mm3 (150-420); Red Blood Count 3.87 M/mm3 (4.20-5.40); Red Cell Distribution Width 13.6 % (11.6-14.4); White Blood Count 1.7 K/mm3 (4.8-10.8)
[2023-11-16 10:11] LABS: Alanine Aminotransferase 15 U/L (14-59); Albumin Level 3.6 g/dL (3.4-5.0); Alkaline Phosphatase 73 U/L (46-116); Anion Gap 10 mmol/L (8-16); Aspartate Amino Transferase 17 U/L (15-37); Bilirubin,Total 0.3 mg/dL (0.00-1.00); Blood Urea Nitrogen 16 mg/dL (7-18); Calcium 8.8 mg/dL (8.5-10.1); Carbon Dioxide 27 mmol/L (21-32); Chloride 106 mmol/L (98-108); Estimated Glomerular Filt Rate > 60; Glucose 99 mg/dL (70-99); Osmolality Calculated 297 mOsm/kg (285-295); Potassium 3.8 mmol/L (3.5-5.1); Sodium 143 mmol/L (136-145); Total Protein 6.6 g/dL (6.4-8.2); Uric Acid 4.2 mg/dL (2.6-6.0)
[2023-11-16 10:12] LABS: Band Neutrophils Percent 0 % (0-6); Eosinophils Percent Manual 0 % (1-6); Lymphocytes Absolute Manual 0.71 K/mm3 (1.1-4.5); Lymphocytes Percent Manual 42 % (18-44); Monocytes Percent Manual 24 % (3-9); Neutrophils Absolute Manual 0.57 K/mm3 (1.7-7.2); Neutrophils Percent Manual 34 % (46-73); Platelet Estimate Adequate (Adequate); Total Cells Counted 100
[2023-11-16 10:24] VITALS: BP 102/60; PULSE 84; RESP 14; TEMP 36.5; O2SAT 98
[2023-11-16] MEDS: ACETAMINOPHEN 325 MG TABLET 650 MG PO (10:30)
[2023-11-16] MEDS: dexAMETHasone SOD PHOS INJ 4 MG/ML VIAL 12 MG IV PUSH (10:30)
[2023-11-16] MEDS: diphenhydrAMINE HCl INJ 50 MG/ML VIAL 25 MG IV PUSH (10:35)
[2023-11-16] MEDS: FAMOTIDINE 20 MG/2 ML VIAL IV PUSH (10:37)
[2023-11-16 11:06] VITALS: BMI 23.6
[2023-11-16 11:40] VITALS: BP 110/60; PULSE 80; RESP 14; TEMP 36.4; O2SAT 98
[2023-11-16 12:10] VITALS: BP 123/70; PULSE 80; RESP 14; O2SAT 99
[2023-11-16 13:00] VITALS: BP 124/67; PULSE 88; RESP 14; O2SAT 98
[2023-11-16] MEDS: HEPARIN SODIUM LOCK FLUSH 500 UNITS/5 ML SYRINGE IV PUSH (14:35)
[2023-11-16 14:38] VITALS: BP 123/70; PULSE 88; RESP 14; TEMP 36.4; O2SAT 98
--- NOTE | 2023-11-16 14:44 | PC.NURSE ---
Patient here for cycle 3 Obinutuzumab regimen. Ongoing education given. All concerns voiced answered. Labs/blood drawn/reviewed/call to Dr. Reyes r/t ANC [id number]. Dr. Reyes ok'd to treat today. Will be sending orders for Zarxio for 11/17--. Infusion regimen administered-SEE MAR. Tolerated well. Will return 11/18/23 for #1 of 3 Zarxio injections at 1030. Safe exit of hospital per with /ambulatory.
== END 2023-11-16 14:49 | disposition home or self-care (01) ==
LOC: CHSTREATRM 09:20
PROVIDERS: PCP Internal Medicine Hematology; Visit Provider Internal Medicine Hematology
DX: Z51.11 Encounter for antineoplastic chemotherapy (principal); C91.10 Chronic lymphocytic leukemia of B-cell type not having achieved remission
CPT/HCPCS: 36415; 36591; 80053; 84550; 85025; 96375; 96413; 96415; A9270; J1100; J1200; J7030; J7050; J9301

== ENCOUNTER 2023-11-18 10:19 | Outpatient (CLI) | payer MEDICARE, BC, SELFPAY ==
[2023-11-18 10:33] VITALS: BP 126/75; PULSE 87; RESP 16; TEMP 36.7; O2SAT 98; BMI 23.8
[2023-11-18] MEDS: FILGRASTIM-SNDZ 300 MCG/0.5 ML SYRINGE SUB-Q (10:37)
--- NOTE | 2023-11-18 10:40 | PC.NURSE ---
Patient here for number one of three zarxio injections. Education given. No concerns voiced. Injection given see OCT. Tolerated well/ Will return tomorrow 11/18 at 10:30 for number two injection. Safe exit out of the hospital. Self ambulatory.
== END 2023-11-18 10:55 | disposition home or self-care (01) ==
LOC: CHSTREATRM 10:23
PROVIDERS: PCP Internal Medicine Hematology; Visit Provider Internal Medicine Hematology
DX: D70.8 Other neutropenia (principal); C91.10 Chronic lymphocytic leukemia of B-cell type not having achieved remission
CPT/HCPCS: 96372; Q5101

== ENCOUNTER 2023-11-19 10:30 | Outpatient (CLI) | payer MEDICARE, BC, SELFPAY ==
[2023-11-19 10:34] VITALS: BMI 23.7
[2023-11-19 10:40] VITALS: BP 127/73; PULSE 92; RESP 14; TEMP 36.6; O2SAT 98
[2023-11-19] MEDS: FILGRASTIM-SNDZ 300 MCG/0.5 ML SYRINGE SUB-Q (10:45)
== END 2023-11-19 11:00 | disposition home or self-care (01) ==
LOC: CHSTREATRM 10:32
PROVIDERS: PCP Internal Medicine Hematology; Visit Provider Internal Medicine Hematology
DX: D70.8 Other neutropenia (principal); C91.10 Chronic lymphocytic leukemia of B-cell type not having achieved remission
CPT/HCPCS: 96372; Q5101

== ENCOUNTER 2023-11-20 10:25 | Outpatient (CLI) | payer MEDICARE, BC, SELFPAY ==
[2023-11-20 10:40] VITALS: BP 131/72; PULSE 72; RESP 14; TEMP 36.6; O2SAT 98; BMI 23.8
[2023-11-20] MEDS: FILGRASTIM-SNDZ 300 MCG/0.5 ML SYRINGE SUB-Q (11:04)
--- NOTE | 2023-11-20 11:11 | PC.NURSE ---
Patient here for #3 of 3 Zarxio injection. Ongoing education given. No concerns voiced. Injection administered. SEE MAR. Tolerated well. Will return 11/23/23 at 1030 for blood work. Safe exit of hospital per self/ambulatory.
== END 2023-11-20 11:10 | disposition home or self-care (01) ==
PROVIDERS: PCP Internal Medicine Hematology; Visit Provider Internal Medicine Hematology
DX: D70.8 Other neutropenia (principal); C91.10 Chronic lymphocytic leukemia of B-cell type not having achieved remission
CPT/HCPCS: 96372; Q5101

== ENCOUNTER 2023-11-23 10:04 | Outpatient (CLI) | payer MEDICARE, SELFPAY ==
[2023-11-23 10:24] VITALS: BP 121/70; PULSE 80; RESP 14; TEMP 36.6; O2SAT 98; BMI 23.7
--- NOTE | 2023-11-23 10:26 | PC.NURSE ---
Patient here in lab. Request blood to drawn from port a cath. Procedure explained. No concerns voiced. Port accessed see Vascular access on patient care. Blood drawn-flushed per protocol and deaccessed. Patient tolerated procedure well. Safe exit of lab.
[2023-11-23 10:52] LABS: Hematocrit 37.7 % (35.0-42.0); Hemoglobin 12.2 g/dL (11.7-13.8); Mean Corpuscular HGB Conc 32.4 g/dL (32-36); Mean Corpuscular Hemoglobin 31.1 pg (27.0-31.0); Mean Corpuscular Volume 96.2 fL (78.0-102.0); Mean Platelet Volume 10.6 fl (9.2-11.8); Platelet Count Result 130 K/mm3 (150-420); Red Blood Count 3.92 M/mm3 (4.20-5.40); Red Cell Distribution Width 13.6 % (11.6-14.4); White Blood Count 2.8 K/mm3 (4.8-10.8)
[2023-11-23 11:04] LABS: Band Neutrophils Percent 0 % (0-6); Lymphocytes Absolute Manual 0.81 K/mm3 (1.1-4.5); Lymphocytes Percent Manual 29 % (18-44); Monocytes Percent Manual 11 % (3-9); Neutrophils Absolute Manual 1.68 K/mm3 (1.7-7.2); Neutrophils Percent Manual 60 % (46-73); Platelet Estimate Adequate (Adequate); Total Cells Counted 100
== END 2023-11-23 10:05 | disposition home or self-care (01) ==
LOC: CHSLAB 10:07 → CHSTREATRM 10:11
PROVIDERS: PCP Internal Medicine Hematology; Visit Provider Internal Medicine Hematology
DX: C91.10 Chronic lymphocytic leukemia of B-cell type not having achieved remission (principal); D70.8 Other neutropenia
CPT/HCPCS: 36415; 36591; 85025

== ENCOUNTER 2023-11-24 17:18 | Emergency (ER) | payer MEDICARE, BC, SELFPAY ==
--- NOTE | ~2023-11-24 | XR_ITS ---
EXAMINATION: XR chest 1V portable Exam Date/Time: 11/24/2023 17:25 CDT HISTORY: cough Comparison: None. RESULT: Lines, tubes, and devices: Left chest implanted port terminating in the distal SVC. Lungs and pleura: Clear. Cardiomediastinal silhouette: Unremarkable. Other: No acute osseous or upper abdominal finding. IMPRESSION: No acute cardiopulmonary process. Reviewed, dictated and finalized at location K.
--- NOTE | 2023-11-24 17:19 | ECG_ITS ---
Measurements Intervals [place] Rate: 104 P: 64 NJ: 122 QRS: 69 QRSD: 66 T: 18 QT: 331 QTc: 436 Interpretive Statements SINUS TACHYCARDIA NONSPECIFIC ST & T-WAVE ABNORMALITY ABNORMAL RHYTHM ECG NO PREVIOUS ECG AVAILABLE FOR COMPARISON Electronically Signed On 11-25-2023 12:15:04 CDT by Giorgi Llanos M.D.
--- NOTE | 2023-11-24 17:20 | ED.URI ---
HPI - URI/Sore Throat General Chief Complaint: Upper Respiratory Infection Stated Complaint: fever/nausea Time Seen by Provider: 11/24/23 17:18 Source: patient and family Mode of arrival: ambulatory Limitations: no limitations History of Present Illness HPI Narrative: Patient is a 68-year-old female with flu-like symptoms since last night. MD elicited complaint: fever Pertinent past history: immunosuppression ( CLL treatment currently) Onset (ago): day(s) (1) Consistency: constant Severity: moderate Pain scale (0-10): 3 Description of mucous: clear Able to tolerate fluids by mouth: Yes Exacerbating factors: nothing Relieving factors: nothing Context: sick contacts ( has same symptoms) Associated symptoms: fever, chills and myalgias Treatments prior to arrival: none Related Data Home Medications Medication Instructions Recorded Confirmed allopurinol 100 mg tablet 100 mg PO DAILY 09/18/23 11/24/23 escitalopram oxalate 20 mg tablet 20 mg PO DAILY 09/18/23 11/24/23 (Lexapro) omeprazole 40 mg capsule,delayed 40 mg PO BID 09/18/23 11/24/23 release valacyclovir 500 mg tablet 500 mg PO Q12H 09/18/23 11/24/23 atovaquone 750 mg/5 mL oral 1,500 mg PO DAILY 11/24/23 11/24/23 suspension Allergies Allergy/AdvReac Type Severity Reaction Status Date / Time amoxapine AdvReac Palpitation Verified 11/24/23 17:21 s atorvastatin AdvReac Diarrhea Verified 11/24/23 17:21 metronidazole [From Flagyl] AdvReac Diarrhea Verified 11/24/23 17:21 pravastatin AdvReac Diarrhea Verified 11/24/23 17:21 gemifibrozil Allergy Anaphylaxis Uncoded 09/16/23 12:41 Review of Systems Review of Systems: All systems reviewed & are unremarkable except as noted in HPI and below Constitutional: Constitutional: Reports no additional constitutional complaints Eyes: Eyes: Reports no additional eye complaints ENT: Reports system reviewed and no additional complaints, except as documented Cardiovascular: Cardiovascular: Reports no additional cardiovascular complaints Respiratory: Respiratory: Reports no additional respiratory complaints Gastrointestinal: Gastrointestinal: Reports no additional gastrointestinal complaints Genitourinary: Genitourinary: Reports no additional female genitourinary complaints Musculoskeletal: Musculoskeletal: Reports no additional musculoskeletal complaints Integumentary/Breasts: Skin/Breast: Reports system reviewed and no additional complaints, except as docu Neurologic: Reports system reviewed and no additional complaints, except as documented Psychiatric: Psychiatric: Reports no additional psychiatric complaints Endocrine: Endocrine: Reports no additional endocrine complaints Hematologic/Lymphatic: Hematologic/Lymphatic: Reports no additional hematologic/lymphatic complaints Allergic/Immunologic: Allergic/Immunologic: Reports no additional allergic/immunologic complaints Exam Const: General: ill appearing Nutritional Appearance: well nourished Orientation/consciousness: patient oriented x3 HENMT: Head: normal to inspection Ears: external ears normal Face/Nose/Sinus: Normal external nose present Eyes: Conjunctivae: conjunctivae normal Pupils: Equal, round and reactive pupils present EOM: EOMs intact bilaterally Neck: Neck: normal visual inspection Chest: Chest palpation & inspection: normal inspection of the chest Resp: Effort & Inspection: normal respiratory effort and not labored Auscultation: clear to auscultation bilaterally Cardio: Rate: regular rate Rhythm: regular rhythm Heart sounds: no murmurs GI: Inspection: non-distended GI Palp: Yes Soft to palpation and No Tenderness to palpation present (GI) Auscultation: normal bowel sounds : General: Yes bladder normal to palpation Back/Spine/Pelvis: Back: no CVA tenderness Skin: General skin exam: normal color Rashes: no rashes Wounds: no wounds Neuro: General: patient oriented x3 Cranial nerves: Yes Nystagmus
[2023-11-24 17:23] VITALS: BP 116/86; PULSE 86; RESP 18; TEMP 36.9; O2SAT 99
[2023-11-24 17:39] LABS: Basophils Absolute Auto 0.01 K/mm3 (0.00-0.10); Basophils Percent Auto 0.2 % (0.0-1.0); Hematocrit 41.5 % (35.0-42.0); Hemoglobin 13.2 g/dL (11.7-13.8); Immature Granulocyte Absolute 0.04 K/mm3 (0.00-0.00); Immature Granulocyte Percent A 0.9 % (0.0-0.0); Immature Platelet Fraction Pct 1.6 % (1.0-7.0); Lymphocytes Percent Auto 6.6 % (18.0-42.0); Mean Corpuscular HGB Conc 31.8 g/dL (32-36); Mean Corpuscular Hemoglobin 30.3 pg (27.0-31.0); Mean Corpuscular Volume 95.2 fL (78.0-102.0); Mean Platelet Volume 9.9 fl (9.2-11.8); Monocytes Absolute Auto 0.47 K/mm3 (0.10-0.90); Monocytes Percent Auto 10.3 % (2.0-11.0); Neutrophils Absolute Auto 3.76 K/mm3 (1.70-7.20); Platelet Count Result 129 K/mm3 (150-420); Red Blood Count 4.36 M/mm3 (4.20-5.40); Red Cell Distribution Width 13.2 % (11.6-14.4); White Blood Count 4.6 K/mm3 (4.8-10.8)
--- NOTE | 2023-11-24 17:48 | PC.NURSE ---
ATTEMPTED TO OBTAIN URINE SAMPLE, PT MISSED THE HAT ON THE TOILET. WILL ATTEMPT AGAIN AT A LATER TIME.
[2023-11-24 17:56] LABS: Alanine Aminotransferase 13 U/L (14-59); Alkaline Phosphatase 87 U/L (46-116); Anion Gap 11 mmol/L (4-12); Aspartate Amino Transferase 18 U/L (15-37); Bilirubin,Total 0.7 mg/dL (0.00-1.00); Blood Urea Nitrogen 24 mg/dL (7-18); Calcium 9.5 mg/dL (8.5-10.1); Carbon Dioxide 27 mmol/L (21-32); Chloride 103 mmol/L (98-108); Estimated CRCL calculation 38 ml/min; Estimated Glomerular Filt Rate 50; Glucose 123 mg/dL (70-99); Osmolality Calculated 297 mOsm/kg (285-295); Potassium 4.2 mmol/L (3.5-5.1); Sodium 141 mmol/L (136-145); Total Protein 7.4 g/dL (6.4-8.2)
[2023-11-24 18:07] LABS: SARS-CoV-2 RNA PCR Negative (Negative)
[2023-11-24 18:08] LABS: Influenza A QL RT-PCR Negative (Negative); Influenza B QL RT-PCR Negative (Negative); RSV RNA, RT-PCR Negative (Negative)
[2023-11-24 18:26] VITALS: BP 118/66; PULSE 98; RESP 18; O2SAT 99
--- NOTE | 2023-11-24 18:27 | PC.NURSE ---
PT IS AWAITING CXR RESULTS. NAD NOTED. PT DENIES ANY NEEDS OR COMPLAINTS. WILL CONTINUE TO MONITOR. IS AT BEDSIDE.
[2023-11-24 19:14] LABS: Appearance Urine Sl Cloudy (Clear); Bilirubin Urine 2+ (Negative); Blood Urine 1+ (Negative); Color Urine Dark Yellow (Yellow); Glucose Urine UA Negative (Negative); Ketones Urine Trace (Negative); Leukocyte Esterase Ur Negative LEU/UL (Negative); Nitrate Urine Negative (Negative); Protein Urine 1+ (Negative); Specific Grav Ur >= 1.030 (1.010-1.020); pH Urine 5.5 (5.0-8.0)
[2023-11-24 19:20] LABS: Add Urine Microscopic? YES; Bacteria Urine 1+ /hpf; Mucus Urine Moderate /lpf; RBC Urine 0-2 /hpf (0-2); Squamous Epithelial Cell Urine Rare /hpf (Few); WBC Urine 0-3 /hpf (0-3)
[2023-11-24] MEDS: CEPHALEXIN 500 MG CAPSULE PO (19:34)
[2023-11-24 19:38] VITALS: BP 114/83; PULSE 82; RESP 18; TEMP 37.1; O2SAT 96
== END 2023-11-24 19:39 | disposition home or self-care (01) ==
PROVIDERS: Emergency Provider Emergency Medicine; PCP Internal Medicine Hematology
DX: B34.9 Viral infection, unspecified (principal); E86.0 Dehydration; N39.0 Urinary tract infection, site not specified; D84.9 Immunodeficiency, unspecified; Z20.822 Contact with and (suspected) exposure to COVID-19
CPT/HCPCS: 36415; 71045; 80053; 81001; 84484; 85025; 85055; 87637; 93005; 99284; A9270

== ENCOUNTER 2023-11-26 10:10 | Outpatient (CLI) | payer MEDICARE, BC, SELFPAY ==
[2023-11-26 10:30] VITALS: BP 99/60; PULSE 88; RESP 14; TEMP 36.5; O2SAT 98; BMI 23.7
[2023-11-26] MEDS: SODIUM CHLORIDE 0.9% IV 1,000 ML 500 ML IVPB (10:30)
[2023-11-26 10:55] LABS: Hemoglobin 12.2 g/dL (11.7-13.8); Mean Corpuscular Volume 94.1 fL (78.0-102.0); Mean Platelet Volume 9.9 fl (9.2-11.8); Platelet Count Result 130 K/mm3 (150-420); Red Blood Count 3.93 M/mm3 (4.20-5.40); Red Cell Distribution Width 13.2 % (11.6-14.4); White Blood Count 2.8 K/mm3 (4.8-10.8)
[2023-11-26 11:14] LABS: Band Neutrophils Percent 0 % (0-6); Lymphocytes Absolute Manual 0.89 K/mm3 (1.1-4.5); Lymphocytes Percent Manual 32 % (18-44); Monocytes Absolute Manual 0.36 K/mm3 (0.1-0.90); Monocytes Percent Manual 13 % (3-9); Neutrophils Absolute Manual 1.54 K/mm3 (1.7-7.2); Neutrophils Percent Manual 55 % (46-73); Platelet Estimate Adequate (Adequate); Total Cells Counted 100
[2023-11-26 12:21] VITALS: BP 116/69; PULSE 88; RESP 14; O2SAT 98
--- NOTE | 2023-11-26 12:26 | PC.NURSE ---
Patient here for IV hydration s/p chemo and neutropenia. Education given. No concerns voiced. IV NS administered see OCT. Tolerated well. Will return Thursday11/30/23 for lab work. Safe exit of hospital per self/ambulation.
[2023-11-26] MEDS: HEPARIN SODIUM LOCK FLUSH 500 UNITS/5 ML SYRINGE IV PUSH (12:31)
== END 2023-11-26 12:35 | disposition home or self-care (01) ==
PROVIDERS: PCP Internal Medicine Hematology; Visit Provider Internal Medicine Hematology
DX: C91.10 Chronic lymphocytic leukemia of B-cell type not having achieved remission (principal)
CPT/HCPCS: 36415; 85025; 87040; 96360; 96361; J7030

== ENCOUNTER 2023-11-30 10:15 | Outpatient (CLI) | payer MEDICARE, SELFPAY ==
[2023-11-30 10:40] LABS: Hematocrit 33.6 % (35.0-42.0); Hemoglobin 10.9 g/dL (11.7-13.8); Mean Corpuscular HGB Conc 32.4 g/dL (32-36); Mean Corpuscular Hemoglobin 30.4 pg (27.0-31.0); Mean Corpuscular Volume 93.9 fL (78.0-102.0); Mean Platelet Volume 9.9 fl (9.2-11.8); Platelet Count Result 153 K/mm3 (150-420); Red Blood Count 3.58 M/mm3 (4.20-5.40); Red Cell Distribution Width 13.3 % (11.6-14.4); White Blood Count 3.2 K/mm3 (4.8-10.8)
[2023-11-30 10:45] VITALS: BMI 23.4
[2023-11-30 10:56] VITALS: BP 117/69; PULSE 80; RESP 14; TEMP 36.4; O2SAT 98
[2023-11-30 10:59] LABS: Albumin Level 3.7 g/dL (3.4-5.0); Anion Gap 10 mmol/L (4-12); Aspartate Amino Transferase 25 U/L (15-37); Blood Urea Nitrogen 14 mg/dL (7-18); Carbon Dioxide 26 mmol/L (21-32); Chloride 106 mmol/L (98-108); Estimated CRCL calculation 54 ml/min; Estimated Glomerular Filt Rate > 60; Glucose 102 mg/dL (70-99); Osmolality Calculated 294 mOsm/kg (285-295); Potassium 4.1 mmol/L (3.5-5.1); Sodium 142 mmol/L (136-145)
[2023-11-30] MEDS: FILGRASTIM-SNDZ 300 MCG/0.5 ML SYRINGE SUB-Q (11:00)
--- NOTE | 2023-11-30 11:03 | PC.NURSE ---
Patient here for labs-Zarxio injection WBC 3.[address] Reyes wants injection given. Education given. No concerns voiced. Zarxio injection administered. SEE MAR Tolerated well. Will return 12/01/23 at 1100 for next injection. Safe exit of hospital per self/ambulatory.
[2023-11-30 11:15] LABS: Alanine Aminotransferase 24 U/L (14-59); Alkaline Phosphatase 60 U/L (46-116); Bilirubin,Total 0.4 mg/dL (0.00-1.00); Total Protein 6.6 g/dL (6.4-8.2)
[2023-11-30 11:17] LABS: Band Neutrophils Percent 0 % (0-6); Lymphocytes Percent Manual 25 % (18-44); Monocytes Absolute Manual 0.28 K/mm3 (0.1-0.90); Monocytes Percent Manual 9 % (3-9); Neutrophils Absolute Manual 2.11 K/mm3 (1.7-7.2); Neutrophils Percent Manual 66 % (46-73); Platelet Estimate Adequate (Adequate); Total Cells Counted 100
== END 2023-11-30 11:03 | disposition home or self-care (01) ==
PROVIDERS: Visit Provider Internal Medicine Hematology
DX: D70.8 Other neutropenia (principal); C91.10 Chronic lymphocytic leukemia of B-cell type not having achieved remission
CPT/HCPCS: 36415; 80053; 85025; 96372; Q5101

== ENCOUNTER 2023-12-01 10:09 | Outpatient (CLI) | payer MEDICARE, SELFPAY ==
[2023-12-01 10:23] VITALS: BP 120/71; PULSE 98; RESP 18; TEMP 36.6; O2SAT 99
[2023-12-01] MEDS: FILGRASTIM-SNDZ 300 MCG/0.5 ML SYRINGE SUB-Q (10:29)
--- NOTE | 2023-12-01 10:33 | PC.NURSE ---
1025 Patient ambulated to floor without difficulty. States the shot yesterday did not make her feel to well however that is what usually happens. 1033 Patient tolerated injection well ambulated to elevator without difficulty.
== END 2023-12-01 10:10 | disposition home or self-care (01) ==
LOC: CHSTREATRM 10:15
PROVIDERS: PCP Internal Medicine Hematology; Visit Provider Internal Medicine Hematology
DX: D70.8 Other neutropenia (principal); C91.10 Chronic lymphocytic leukemia of B-cell type not having achieved remission
CPT/HCPCS: 96372; Q5101

== ENCOUNTER 2023-12-02 10:19 | Outpatient (CLI) | payer MEDICARE, SELFPAY ==
[2023-12-02 10:35] VITALS: BMI 23.1
[2023-12-02 10:40] VITALS: BP 111/67; PULSE 102; RESP 16; TEMP 36.7; O2SAT 98
[2023-12-02] MEDS: FILGRASTIM-SNDZ 300 MCG/0.5 ML SYRINGE SUB-Q (10:43)
--- NOTE | 2023-12-02 10:45 | PC.NURSE ---
1035 Patient ambulated to room 205 without diffculty. 1042 injection given in left outer arm without difficulty patient tolerated well. 1045 Patient ambulated to elevator without difficulty.
== END 2023-12-02 10:20 | disposition home or self-care (01) ==
PROVIDERS: PCP Internal Medicine Hematology; Visit Provider Internal Medicine Hematology
DX: D70.8 Other neutropenia (principal); C91.10 Chronic lymphocytic leukemia of B-cell type not having achieved remission
CPT/HCPCS: 96372; Q5101

== ENCOUNTER 2023-12-03 10:23 | Outpatient (CLI) | payer MEDICARE, BC, SELFPAY ==
[2023-12-03 10:49] LABS: Hematocrit 34.9 % (35.0-42.0); Hemoglobin 11.2 g/dL (11.7-13.8); Mean Corpuscular HGB Conc 32.1 g/dL (32-36); Mean Corpuscular Hemoglobin 30.7 pg (27.0-31.0); Mean Corpuscular Volume 95.6 fL (78.0-102.0); Mean Platelet Volume 9.9 fl (9.2-11.8); Platelet Count Result 153 K/mm3 (150-420); Red Blood Count 3.65 M/mm3 (4.20-5.40); Red Cell Distribution Width 13.7 % (11.6-14.4); White Blood Count 11.7 K/mm3 (4.8-10.8)
[2023-12-03 11:14] LABS: Band Neutrophils Percent 2 % (0-6); Basophils Percent Manual 0 % (0-1); Eosinophils Percent Manual 0 % (1-6); Lymphocytes Absolute Manual 0.81 K/mm3 (1.1-4.5); Lymphocytes Percent Manual 7 % (18-44); Monocytes Absolute Manual 0.35 K/mm3 (0.1-0.90); Monocytes Percent Manual 3 % (3-9); Neutrophils Absolute Manual 10.53 K/mm3 (1.7-7.2); Neutrophils Percent Manual 88 % (46-73); Platelet Estimate Adequate (Adequate); Total Cells Counted 100
== END 2023-12-03 10:24 | disposition home or self-care (01) ==
LOC: CHSTREATRM 10:28
PROVIDERS: Visit Provider Internal Medicine Hematology
DX: D70.8 Other neutropenia (principal); C91.10 Chronic lymphocytic leukemia of B-cell type not having achieved remission
CPT/HCPCS: 36415; 85025

== ENCOUNTER 2023-12-14 10:24 | Outpatient (CLI) | payer MEDICARE, SELFPAY ==
[2023-12-14 11:00] VITALS: BMI 23.8
[2023-12-14 11:25] LABS: Hematocrit 32.9 % (35.0-42.0); Hemoglobin 10.8 g/dL (11.7-13.8); Mean Corpuscular HGB Conc 32.8 g/dL (32-36); Mean Corpuscular Volume 94.5 fL (78.0-102.0); Mean Platelet Volume 10.2 fl (9.2-11.8); Platelet Count Result 119 K/mm3 (150-420); Red Blood Count 3.48 M/mm3 (4.20-5.40)
[2023-12-14 11:32] LABS: White Blood Count 1.2 K/mm3 (4.8-10.8)
[2023-12-14 11:33] LABS: Alanine Aminotransferase 13 U/L (14-59); Albumin Level 3.6 g/dL (3.4-5.0); Alkaline Phosphatase 68 U/L (46-116); Anion Gap 9 mmol/L (4-12); Aspartate Amino Transferase 21 U/L (15-37); Bilirubin,Total 0.5 mg/dL (0.00-1.00); Blood Urea Nitrogen 14 mg/dL (7-18); Calcium 8.7 mg/dL (8.5-10.1); Carbon Dioxide 29 mmol/L (21-32); Chloride 106 mmol/L (98-108); Estimated CRCL calculation 47 ml/min; Estimated Glomerular Filt Rate > 60; Glucose 95 mg/dL (70-99); Osmolality Calculated 298 mOsm/kg (285-295); Potassium 4.2 mmol/L (3.5-5.1); Sodium 144 mmol/L (136-145); Total Protein 6.5 g/dL (6.4-8.2); Uric Acid 2.8 mg/dL (2.6-6.0)
[2023-12-14 12:35] LABS: Band Neutrophils Percent 0 % (0-6); Lymphocytes Absolute Manual 0.38 K/mm3 (1.1-4.5); Lymphocytes Percent Manual 32 % (18-44); Monocytes Absolute Manual 0.09 K/mm3 (0.1-0.90); Monocytes Percent Manual 8 % (3-9); Neutrophils Absolute Manual 0.72 K/mm3 (1.7-7.2); Neutrophils Percent Manual 60 % (46-73); Platelet Estimate Adequate (Adequate); Total Cells Counted 100
== END 2023-12-14 10:25 | disposition home or self-care (01) ==
PROVIDERS: Visit Provider Internal Medicine Hematology
DX: C91.10 Chronic lymphocytic leukemia of B-cell type not having achieved remission (principal)
CPT/HCPCS: 36415; 36591; 80053; 84550; 85025

== ENCOUNTER 2023-12-16 09:51 | Outpatient (CLI) | payer MEDICARE, BC, SELFPAY ==
[2023-12-16] MEDS: SODIUM CHLORIDE 0.9% IV 250 ML 10 ML IVPB (10:00)
[2023-12-16] MEDS: ACETAMINOPHEN 325 MG TABLET 650 MG PO (10:00)
[2023-12-16] MEDS: dexAMETHasone SOD PHOS INJ 4 MG/ML VIAL 12 MG IV PUSH (10:01)
[2023-12-16] MEDS: FAMOTIDINE 20 MG/2 ML VIAL IV PUSH (10:03)
[2023-12-16] MEDS: diphenhydrAMINE HCl INJ 50 MG/ML VIAL 25 MG IV PUSH (10:05)
[2023-12-16 10:33] VITALS: BP 121/76; PULSE 88; RESP 14; TEMP 36.5; O2SAT 100; BMI 22.8
[2023-12-16 11:18] VITALS: BP 110/70; PULSE 78; RESP 14; O2SAT 100
[2023-12-16 11:50] VITALS: BP 118/69; PULSE 78; RESP 14; TEMP 36.3; O2SAT 99
[2023-12-16 12:20] VITALS: BP 120/66; PULSE 88; RESP 14; O2SAT 100
[2023-12-16 13:28] VITALS: BP 123/70; PULSE 88; RESP 14; O2SAT 100
[2023-12-16] MEDS: HEPARIN SODIUM LOCK FLUSH 500 UNITS/5 ML SYRINGE IV PUSH (14:00)
[2023-12-16 14:21] VITALS: BP 123/69; PULSE 88; RESP 16; TEMP 36.4; O2SAT 99
--- NOTE | 2023-12-16 14:24 | PC.NURSE ---
Patient here for Chemo treatment. Education given. All concerns answered. Labs reviewed from Thursday12/14/[address] Reyes. Chemo regimen administered. SEE OCT. Tolerated well. Will return 12/16- and 12/20-12/21 for Zarxio injections. Safe exit of hospital with /ambulatory.
== END 2023-12-16 14:28 | disposition home or self-care (01) ==
PROVIDERS: PCP Internal Medicine Hematology; Visit Provider Internal Medicine Hematology
DX: Z51.11 Encounter for antineoplastic chemotherapy (principal); C91.10 Chronic lymphocytic leukemia of B-cell type not having achieved remission
CPT/HCPCS: 96375; 96413; 96415; A9270; J1100; J1200; J7030; J9301

== ENCOUNTER 2023-12-17 10:15 | Outpatient (CLI) | payer MEDICARE, BC, SELFPAY ==
[2023-12-17] MEDS: FILGRASTIM-SNDZ 300 MCG/0.5 ML SYRINGE SUB-Q (10:28)
--- NOTE | 2023-12-17 10:28 | PC.NURSE ---
Patient here for Zarxio injection. Tolerated well to right upper outer arm sub q. Denies any questions, left floor ambulatory.
== END 2023-12-17 10:16 | disposition home or self-care (01) ==
LOC: CHSTREATRM 10:19
PROVIDERS: Visit Provider Internal Medicine Hematology
DX: D70.8 Other neutropenia (principal); C91.10 Chronic lymphocytic leukemia of B-cell type not having achieved remission
CPT/HCPCS: 96372; Q5101

== ENCOUNTER 2023-12-18 10:04 | Outpatient (CLI) | payer MEDICARE, BC, SELFPAY ==
[2023-12-18] MEDS: FILGRASTIM-SNDZ 300 MCG/0.5 ML SYRINGE SUB-Q (10:19)
--- NOTE | 2023-12-18 10:20 | PC.NURSE ---
Patient here for zarxio injection. Patient tolerated well to left upper arm. Denies any questions. Left floor ambulatory.
== END 2023-12-18 10:05 | disposition home or self-care (01) ==
PROVIDERS: PCP Internal Medicine Hematology; Visit Provider Internal Medicine Hematology
DX: D70.8 Other neutropenia (principal); C91.10 Chronic lymphocytic leukemia of B-cell type not having achieved remission
CPT/HCPCS: 96372; Q5101

== ENCOUNTER 2023-12-21 10:07 | Outpatient (CLI) | payer MEDICARE, BC, SELFPAY ==
[2023-12-21] MEDS: FILGRASTIM-SNDZ 300 MCG/0.5 ML SYRINGE SUB-Q (10:27)
[2023-12-21 10:28] VITALS: BP 118/69; PULSE 88; RESP 14; TEMP 36.6; O2SAT 98; BMI 23.3
--- NOTE | 2023-12-21 10:31 | PC.NURSE ---
Patient here for Zarxio injection. Education given. Reports feeling achy. No other concerns voiced. Injection administered. SEE MAR. Will return 12/22/23 at 1000 for blood work and possible Zarxio injection. Safe exit of hospital per self/ambulatory.
== END 2023-12-21 10:33 | disposition home or self-care (01) ==
LOC: CHSTREATRM 10:13
PROVIDERS: PCP Internal Medicine Hematology; Visit Provider Internal Medicine Hematology
DX: D70.8 Other neutropenia (principal); C91.10 Chronic lymphocytic leukemia of B-cell type not having achieved remission
CPT/HCPCS: 96372; Q5101

== ENCOUNTER 2023-12-22 10:17 | Outpatient (CLI) | payer MEDICARE, BC, SELFPAY ==
[2023-12-22 10:47] VITALS: BP 113/69; PULSE 88; RESP 14; TEMP 36.1; O2SAT 98; BMI 23.1
[2023-12-22 10:54] LABS: Hematocrit 38.1 % (35.0-42.0); Hemoglobin 12.4 g/dL (11.7-13.8); Immature Platelet Fraction Pct 3.1 % (1.0-7.0); Mean Corpuscular HGB Conc 32.5 g/dL (32-36); Mean Corpuscular Hemoglobin 30.2 pg (27.0-31.0); Mean Corpuscular Volume 92.9 fL (78.0-102.0); Mean Platelet Volume 10.7 fl (9.2-11.8); Platelet Count Result 77 K/mm3 (150-420); Red Cell Distribution Width 13.2 % (11.6-14.4); White Blood Count 8.8 K/mm3 (4.8-10.8)
[2023-12-22 11:22] LABS: Band Neutrophils Percent 0 % (0-6); Basophils Percent Manual 0 % (0-1); Eosinophils Percent Manual 0 % (1-6); Lymphocytes Absolute Manual 0.79 K/mm3 (1.1-4.5); Lymphocytes Percent Manual 9 % (18-44); Monocytes Absolute Manual 0.61 K/mm3 (0.1-0.90); Monocytes Percent Manual 7 % (3-9); Neutrophils Absolute Manual 7.39 K/mm3 (1.7-7.2); Neutrophils Percent Manual 84 % (46-73); Platelet Estimate Decreased (Adequate); Total Cells Counted 100
== END 2023-12-22 10:18 | disposition home or self-care (01) ==
LOC: CHSTREATRM 10:21
PROVIDERS: PCP Internal Medicine Hematology; Visit Provider Internal Medicine Hematology
DX: D70.8 Other neutropenia (principal); C91.10 Chronic lymphocytic leukemia of B-cell type not having achieved remission
CPT/HCPCS: 36415; 36591; 85025; 85055

== ENCOUNTER 2024-01-04 10:12 | Outpatient (CLI) | payer MEDICARE, BC, SELFPAY ==
[2024-01-04 10:15] VITALS: BMI 23.8
[2024-01-04 11:20] LABS: Hematocrit 34.5 % (35.0-42.0); Hemoglobin 11.2 g/dL (11.7-13.8); Mean Corpuscular HGB Conc 32.5 g/dL (32-36); Mean Corpuscular Hemoglobin 29.9 pg (27.0-31.0); Mean Corpuscular Volume 92.2 fL (78.0-102.0); Mean Platelet Volume 9.8 fl (9.2-11.8); Platelet Count Result 150 K/mm3 (150-420); Red Blood Count 3.74 M/mm3 (4.20-5.40); Red Cell Distribution Width 13.2 % (11.6-14.4)
[2024-01-04 11:23] LABS: White Blood Count 1.1 K/mm3 (4.8-10.8)
[2024-01-04 11:58] LABS: Band Neutrophils Percent 0 % (0-6); Lymphocytes Absolute Manual 0.55 K/mm3 (1.1-4.5); Lymphocytes Percent Manual 50 % (18-44); Monocytes Absolute Manual 0.33 K/mm3 (0.1-0.90); Monocytes Percent Manual 30 % (3-9); Neutrophils Absolute Manual 0.22 K/mm3 (1.7-7.2); Neutrophils Percent Manual 20 % (46-73); Platelet Estimate Adequate (Adequate); Total Cells Counted 100
[2024-01-04 12:18] LABS: Alanine Aminotransferase 20 U/L (14-59); Albumin Level 3.8 g/dL (3.4-5.0); Alkaline Phosphatase 65 U/L (46-116); Anion Gap 10 mmol/L (4-12); Aspartate Amino Transferase 19 U/L (15-37); Bilirubin,Total 0.4 mg/dL (0.00-1.00); Blood Urea Nitrogen 17 mg/dL (7-18); Calcium 9.2 mg/dL (8.5-10.1); Carbon Dioxide 26 mmol/L (21-32); Chloride 105 mmol/L (98-108); Estimated CRCL calculation 53 ml/min; Estimated Glomerular Filt Rate > 60; Glucose 101 mg/dL (70-99); Lactate Dehydrogenase 132 U/L (81-234); Osmolality Calculated 293 mOsm/kg (285-295); Potassium 4.1 mmol/L (3.5-5.1); Sodium 141 mmol/L (136-145); Total Protein 6.8 g/dL (6.4-8.2)
== END 2024-01-04 10:13 | disposition home or self-care (01) ==
PROVIDERS: PCP Internal Medicine Hematology; Visit Provider Internal Medicine Hematology
DX: C91.10 Chronic lymphocytic leukemia of B-cell type not having achieved remission (principal)
CPT/HCPCS: 36415; 36591; 80053; 83615; 85025

== ENCOUNTER 2024-01-05 10:46 | Outpatient (CLI) | payer MEDICARE, BC, SELFPAY ==
[2024-01-05 10:55] VITALS: BP 128/76; PULSE 88; RESP 18; TEMP 36.4; O2SAT 95
--- NOTE | 2024-01-05 10:55 | PC.NURSE ---
here for OP injection
[2024-01-05 11:00] VITALS: BMI 23.8
[2024-01-05] MEDS: FILGRASTIM-SNDZ 300 MCG/0.5 ML SYRINGE SUB-Q (11:02)
--- NOTE | 2024-01-05 11:05 | PC.NURSE ---
tolerated injection well, dc to home
== END 2024-01-05 10:47 | disposition home or self-care (01) ==
PROVIDERS: PCP Internal Medicine Hematology; Visit Provider Internal Medicine Hematology
DX: D70.8 Other neutropenia (principal); C91.10 Chronic lymphocytic leukemia of B-cell type not having achieved remission
CPT/HCPCS: 96372; Q5101

== ENCOUNTER 2024-01-06 11:11 | Outpatient (CLI) | payer MEDICARE, SELFPAY ==
[2024-01-06] MEDS: FILGRASTIM-SNDZ 300 MCG/0.5 ML SYRINGE SUB-Q (11:31)
[2024-01-06 11:37] VITALS: BP 119/72; PULSE 88; RESP 14; TEMP 36.7; O2SAT 98; BMI 22.6
== END 2024-01-06 11:47 | disposition home or self-care (01) ==
PROVIDERS: Visit Provider Internal Medicine Hematology
DX: D70.8 Other neutropenia (principal); C91.10 Chronic lymphocytic leukemia of B-cell type not having achieved remission
CPT/HCPCS: 96372; Q5101

== ENCOUNTER 2024-01-07 10:04 | Outpatient (CLI) | payer MEDICARE, BC, SELFPAY ==
[2024-01-07] MEDS: FILGRASTIM-SNDZ 300 MCG/0.5 ML SYRINGE SUB-Q (10:29)
[2024-01-07 10:31] VITALS: BP 118/62; PULSE 88; RESP 14; TEMP 36.3; O2SAT 98; BMI 23.4
== END 2024-01-07 10:05 | disposition home or self-care (01) ==
PROVIDERS: PCP Internal Medicine Hematology; Visit Provider Internal Medicine Hematology
DX: D70.8 Other neutropenia (principal); C91.10 Chronic lymphocytic leukemia of B-cell type not having achieved remission
CPT/HCPCS: 96372; Q5101

== ENCOUNTER 2024-01-08 10:05 | Outpatient (CLI) | payer MEDICARE, BC, SELFPAY ==
[2024-01-08 10:15] VITALS: BP 108/69; PULSE 88; RESP 14; TEMP 36.6; O2SAT 98; BMI 23.6
[2024-01-08] MEDS: HEPARIN SODIUM LOCK FLUSH 500 UNITS/5 ML SYRINGE (10:30)
[2024-01-08] MEDS: FILGRASTIM-SNDZ 300 MCG/0.5 ML SYRINGE SUB-Q (10:30)
[2024-01-08 10:35] LABS: Hematocrit 35.7 % (35.0-42.0); Hemoglobin 11.9 g/dL (11.7-13.8); Mean Corpuscular HGB Conc 33.3 g/dL (32-36); Mean Corpuscular Hemoglobin 30.7 pg (27.0-31.0); Mean Corpuscular Volume 92.2 fL (78.0-102.0); Mean Platelet Volume 10.3 fl (9.2-11.8); Platelet Count Result 139 K/mm3 (150-420); Red Blood Count 3.87 M/mm3 (4.20-5.40); Red Cell Distribution Width 13.5 % (11.6-14.4)
[2024-01-08 10:55] LABS: Band Neutrophils Percent 2 % (0-6); Basophils Percent Manual 0 % (0-1); Eosinophils Absolute Manual 0.08 K/mm3 (0.02-0.50); Eosinophils Percent Manual 1 % (1-6); Lymphocytes Percent Manual 10 % (18-44); Metamyelocytes Percent 1 %; Monocytes Absolute Manual 0.96 K/mm3 (0.1-0.90); Monocytes Percent Manual 12 % (3-9); Myelocytes Percent 1 %; Neutrophils Percent Manual 73 % (46-73); Platelet Estimate Adequate (Adequate); Total Cells Counted 100
--- NOTE | 2024-01-08 11:16 | PC.NURSE ---
Patient here for lab cbc and Day #4 of Zarxio injection. Education given. No concerns voiced. Labs drawn from port a cath per patient's request. WBC 8.[address] Coulter notified of results. Orders to give todays Zarxio injection and do not give 01/09/24 dose. Injection administered. SEE MAR. Tolerated well. Will return 01/14/24 for more blood/labs. Has Chemo scheduled for 01/19/24 at 1000. Safe exit of hospital per self/amb.
== END 2024-01-08 10:45 | disposition home or self-care (01) ==
PROVIDERS: PCP Internal Medicine Hematology; Visit Provider Internal Medicine Hematology
DX: D70.8 Other neutropenia (principal); C91.10 Chronic lymphocytic leukemia of B-cell type not having achieved remission
CPT/HCPCS: 36415; 36591; 85025; 96372; Q5101

== ENCOUNTER 2024-01-14 09:59 | Outpatient (CLI) | payer MEDICARE, SELFPAY ==
[2024-01-14 10:05] VITALS: BMI 23.5
[2024-01-14 10:53] LABS: Hematocrit 37.7 % (35.0-42.0); Hemoglobin 12.2 g/dL (11.7-13.8); Mean Corpuscular HGB Conc 32.4 g/dL (32-36); Mean Corpuscular Hemoglobin 29.8 pg (27.0-31.0); Mean Platelet Volume 10.2 fl (9.2-11.8); Platelet Count Result 137 K/mm3 (150-420); Red Cell Distribution Width 13.5 % (11.6-14.4); White Blood Count 3.5 K/mm3 (4.8-10.8)
[2024-01-14 11:08] LABS: Alanine Aminotransferase 16 U/L (14-59); Albumin Level 3.8 g/dL (3.4-5.0); Alkaline Phosphatase 73 U/L (46-116); Anion Gap 8 mmol/L (4-12); Aspartate Amino Transferase 24 U/L (15-37); Bilirubin,Total 0.5 mg/dL (0.00-1.00); Blood Urea Nitrogen 14 mg/dL (7-18); Carbon Dioxide 29 mmol/L (21-32); Chloride 104 mmol/L (98-108); Estimated CRCL calculation 47 ml/min; Estimated Glomerular Filt Rate > 60; Glucose 98 mg/dL (70-99); Osmolality Calculated 292 mOsm/kg (285-295); Potassium 4.1 mmol/L (3.5-5.1); Sodium 141 mmol/L (136-145); Total Protein 6.9 g/dL (6.4-8.2)
[2024-01-14 11:14] LABS: Band Neutrophils Percent 1 % (0-6); Lymphocytes Absolute Manual 0.73 K/mm3 (1.1-4.5); Lymphocytes Percent Manual 21 % (18-44); Monocytes Absolute Manual 0.24 K/mm3 (0.1-0.90); Monocytes Percent Manual 7 % (3-9); Neutrophils Absolute Manual 2.52 K/mm3 (1.7-7.2); Neutrophils Percent Manual 71 % (46-73); Platelet Estimate Adequate (Adequate); Total Cells Counted 100
== END 2024-01-14 10:00 | disposition home or self-care (01) ==
LOC: CHSLAB 10:03
PROVIDERS: Visit Provider Internal Medicine Hematology
DX: D70.8 Other neutropenia (principal)
CPT/HCPCS: 36415; 36591; 80053; 85025

== ENCOUNTER 2024-01-19 09:25 | Outpatient (CLI) | payer MEDICARE, BC, SELFPAY ==
[2024-01-19 09:57] VITALS: BP 120/71; PULSE 84; RESP 14; TEMP 36.6; O2SAT 98; BMI 22.4
[2024-01-19] MEDS: FAMOTIDINE 20 MG/2 ML VIAL IV PUSH (10:00)
[2024-01-19] MEDS: diphenhydrAMINE HCl INJ 50 MG/ML VIAL 25 MG IV PUSH (10:03)
[2024-01-19] MEDS: ACETAMINOPHEN 325 MG TABLET 650 MG PO (10:07)
[2024-01-19] MEDS: dexAMETHasone SOD PHOS INJ 4 MG/ML VIAL 12 MG IV PUSH (10:11)
[2024-01-19] MEDS: SODIUM CHLORIDE 0.9% IV 250 ML 10 ML IVPB (10:12)
[2024-01-19 11:00] VITALS: BP 110/67; PULSE 69; RESP 14; TEMP 36.6; O2SAT 100
[2024-01-19 11:30] VITALS: BP 112/70; PULSE 68; RESP 14; TEMP 36.6; O2SAT 99
[2024-01-19 12:29] VITALS: BP 118/70; PULSE 72; RESP 14; TEMP 36.6; O2SAT 99
[2024-01-19] MEDS: HEPARIN SODIUM LOCK FLUSH 500 UNITS/5 ML SYRINGE IV PUSH (13:51)
[2024-01-19 14:02] VITALS: BP 123/70; PULSE 80; RESP 14; TEMP 36.6; O2SAT 99
--- NOTE | 2024-01-19 14:04 | PC.NURSE ---
Patient here for #5 Obinutuzumab IV infusion treatment. Labs reviewed from 01/14/[address] Reyes to go ahead give tx. Education given. All concerns voiced answered. Pre-meds and Obinutuzumab administered. SEE MAR. Tolerated well. Will return 01/25/24 for lab work. SEE Dr. Reyes in clinic on 01/27/24 and anticipate #6 tx on 02/16/24. Safe exit of hospital per self/ambulation.
== END 2024-01-19 09:26 | disposition home or self-care (01) ==
PROVIDERS: PCP Internal Medicine Hematology; Visit Provider Internal Medicine Hematology
DX: Z51.11 Encounter for antineoplastic chemotherapy (principal); C91.10 Chronic lymphocytic leukemia of B-cell type not having achieved remission
CPT/HCPCS: 96375; 96413; 96415; A9270; J1100; J1200; J7030; J7050; J9301

== ENCOUNTER 2024-01-25 10:25 | Outpatient (CLI) | payer MEDICARE, SELFPAY ==
[2024-01-25 10:43] VITALS: BMI 22.5
[2024-01-25 10:46] VITALS: BP 121/69; PULSE 88; RESP 14; TEMP 36.6; O2SAT 98
[2024-01-25 11:08] LABS: Hematocrit 34.5 % (35.0-42.0); Hemoglobin 11.1 g/dL (11.7-13.8); Mean Corpuscular HGB Conc 32.2 g/dL (32-36); Mean Corpuscular Hemoglobin 29.7 pg (27.0-31.0); Mean Corpuscular Volume 92.2 fL (78.0-102.0); Mean Platelet Volume 9.9 fl (9.2-11.8); Platelet Count Result 108 K/mm3 (150-420); Red Blood Count 3.74 M/mm3 (4.20-5.40); Red Cell Distribution Width 13.8 % (11.6-14.4)
[2024-01-25 11:13] LABS: White Blood Count 1.1 K/mm3 (4.8-10.8)
[2024-01-25 11:23] LABS: Alanine Aminotransferase 15 U/L (14-59); Albumin Level 3.7 g/dL (3.4-5.0); Alkaline Phosphatase 66 U/L (46-116); Anion Gap 8 mmol/L (4-12); Aspartate Amino Transferase 14 U/L (15-37); Bilirubin,Total 0.5 mg/dL (0.00-1.00); Blood Urea Nitrogen 11 mg/dL (7-18); Calcium 9.1 mg/dL (8.5-10.1); Carbon Dioxide 29 mmol/L (21-32); Chloride 105 mmol/L (98-108); Estimated CRCL calculation 46 ml/min; Estimated Glomerular Filt Rate > 60; Glucose 96 mg/dL (70-99); Osmolality Calculated 293 mOsm/kg (285-295); Potassium 4.2 mmol/L (3.5-5.1); Sodium 142 mmol/L (136-145); Total Protein 6.8 g/dL (6.4-8.2)
[2024-01-25 12:45] LABS: Band Neutrophils Percent 0 % (0-6); Lymphocytes Absolute Manual 0.72 K/mm3 (1.1-4.5); Lymphocytes Percent Manual 66 % (18-44); Monocytes Absolute Manual 0.15 K/mm3 (0.1-0.90); Monocytes Percent Manual 14 % (3-9); Neutrophils Absolute Manual 0.22 K/mm3 (1.7-7.2); Neutrophils Percent Manual 20 % (46-73); Platelet Estimate Adequate (Adequate); Total Cells Counted 100
== END 2024-01-25 10:26 | disposition home or self-care (01) ==
LOC: CHSLAB 10:29
PROVIDERS: PCP Internal Medicine Hematology; Visit Provider Internal Medicine Hematology
DX: C91.10 Chronic lymphocytic leukemia of B-cell type not having achieved remission (principal)
CPT/HCPCS: 36415; 80053; 85025

== ENCOUNTER 2024-01-27 09:19 | Outpatient (CLI) | payer MEDICARE, BC, SELFPAY ==
[2024-01-27] MEDS: FILGRASTIM-SNDZ 300 MCG/0.5 ML SYRINGE SUB-Q (09:43)
[2024-01-27 09:47] VITALS: BMI 48.4
[2024-01-27 09:49] VITALS: BP 124/76; PULSE 84; RESP 18; TEMP 36.1; O2SAT 98
== END 2024-01-27 09:20 | disposition home or self-care (01) ==
LOC: CHSTREATRM 09:23
PROVIDERS: Visit Provider Internal Medicine Hematology
DX: D70.8 Other neutropenia (principal); D70.1 Agranulocytosis secondary to cancer chemotherapy; C91.10 Chronic lymphocytic leukemia of B-cell type not having achieved remission
CPT/HCPCS: 96372; Q5101

== ENCOUNTER 2024-01-28 10:10 | Outpatient (CLI) | payer MEDICARE, BC, SELFPAY ==
[2024-01-28 10:30] VITALS: BP 112/63; PULSE 92; RESP 16; TEMP 36.4; O2SAT 98; BMI 21.9
[2024-01-28] MEDS: FILGRASTIM-SNDZ 300 MCG/0.5 ML SYRINGE SUB-Q (10:34)
--- NOTE | 2024-01-28 11:05 | PC.NURSE ---
Patient here for #2 of 4 Zarxio injections for low WBC during chemo treatments. Reports slight nausea briefly last evening, but subsided. Otherwise no complaints. Education given. All concerns voiced answered. Injection administered. see MAR. Will return 01/29/24 at 1030 for #3 of 4. Safe exit of hospital per self/ambultory.
== END 2024-01-28 10:11 | disposition home or self-care (01) ==
PROVIDERS: Visit Provider Internal Medicine Hematology
DX: D70.9 Neutropenia, unspecified (principal); D70.1 Agranulocytosis secondary to cancer chemotherapy; C91.10 Chronic lymphocytic leukemia of B-cell type not having achieved remission
CPT/HCPCS: 96372; Q5101

== ENCOUNTER 2024-01-29 09:57 | Outpatient (CLI) | payer MEDICARE, BC, SELFPAY ==
[2024-01-29 10:12] VITALS: BMI 21.9
[2024-01-29 10:15] VITALS: BP 99/66; PULSE 61; RESP 16; TEMP 36.7; O2SAT 99
[2024-01-29] MEDS: FILGRASTIM-SNDZ 300 MCG/0.5 ML SYRINGE SUB-Q (10:20)
--- NOTE | 2024-01-29 10:22 | PC.NURSE ---
1020 Patient ambulated to floor without diffculty. Instructions on medication discussed. Patient tolerated injection well. I encouraged patient to drink plenty of fluids.
== END 2024-01-29 09:58 | disposition home or self-care (01) ==
LOC: CHSTREATRM 10:00
PROVIDERS: Visit Provider Internal Medicine Hematology
DX: D70.8 Other neutropenia (principal); D70.1 Agranulocytosis secondary to cancer chemotherapy; C91.10 Chronic lymphocytic leukemia of B-cell type not having achieved remission
CPT/HCPCS: 96372; Q5101

== ENCOUNTER 2024-02-01 10:07 | Outpatient (CLI) | payer MEDICARE, BC, SELFPAY ==
[2024-02-01] MEDS: FILGRASTIM-SNDZ 300 MCG/0.5 ML SYRINGE SUB-Q (10:26)
[2024-02-01 10:30] VITALS: BP 122/77; PULSE 88; RESP 16; TEMP 36.6; O2SAT 99; BMI 21.9
--- NOTE | 2024-02-01 10:37 | PC.NURSE ---
Here for #4 of 4 Zarxio injections. Education given. No concerns voiced. Injection administered. SEE MAR. Will return 02/02/24 for lab/cbc. Safe exit of hospital per self/ambulatory
== END 2024-02-01 10:08 | disposition home or self-care (01) ==
PROVIDERS: PCP Internal Medicine Hematology; Visit Provider Internal Medicine Hematology
DX: D70.8 Other neutropenia (principal); D70.1 Agranulocytosis secondary to cancer chemotherapy; C91.10 Chronic lymphocytic leukemia of B-cell type not having achieved remission
CPT/HCPCS: 96372; Q5101

== ENCOUNTER 2024-02-02 10:11 | Outpatient (CLI) | payer MEDICARE, BC, SELFPAY ==
[2024-02-02 10:34] VITALS: BP 121/73; PULSE 88; RESP 14; TEMP 36.5; O2SAT 99; BMI 21.9
[2024-02-02] MEDS: HEPARIN SODIUM LOCK FLUSH 500 UNITS/5 ML SYRINGE (10:39)
--- NOTE | 2024-02-02 10:42 | PC.NURSE ---
Patient here for labs today. Patient wants labs drawn from port a cath. Procedure explained. No concerns voiced. SEE Patient care-Labs/blood drawn from port. Patient tolerated well. Safe exti of hospital per self/ambulatory.
[2024-02-02 11:05] LABS: Hematocrit 35.3 % (35.0-42.0); Hemoglobin 11.5 g/dL (11.7-13.8); Immature Platelet Fraction Pct 2.1 % (1.0-7.0); Mean Corpuscular HGB Conc 32.6 g/dL (32-36); Mean Corpuscular Hemoglobin 30.2 pg (27.0-31.0); Mean Corpuscular Volume 92.7 fL (78.0-102.0); Mean Platelet Volume 10.3 fl (9.2-11.8); Platelet Count Result 106 K/mm3 (150-420); Red Blood Count 3.81 M/mm3 (4.20-5.40); Red Cell Distribution Width 14.6 % (11.6-14.4); White Blood Count 9.2 K/mm3 (4.8-10.8)
[2024-02-02 11:23] LABS: Alanine Aminotransferase 16 U/L (14-59); Albumin Level 3.4 g/dL (3.4-5.0); Alkaline Phosphatase 86 U/L (46-116); Anion Gap 9 mmol/L (4-12); Aspartate Amino Transferase 33 U/L (15-37); Bilirubin,Total 0.4 mg/dL (0.00-1.00); Blood Urea Nitrogen 9 mg/dL (7-18); Calcium 8.7 mg/dL (8.5-10.1); Carbon Dioxide 28 mmol/L (21-32); Chloride 104 mmol/L (98-108); Estimated CRCL calculation 44 ml/min; Estimated Glomerular Filt Rate 60; Glucose 95 mg/dL (70-99); Osmolality Calculated 290 mOsm/kg (285-295); Potassium 3.9 mmol/L (3.5-5.1); Sodium 141 mmol/L (136-145); Total Protein 6.5 g/dL (6.4-8.2)
[2024-02-02 11:37] LABS: Total Cells Counted 100
[2024-02-02 11:38] LABS: Band Neutrophils Percent 1 % (0-6); Basophils Percent Manual 0 % (0-1); Eosinophils Percent Manual 0 % (1-6); Lymphocytes Percent Manual 12 % (18-44); Metamyelocytes Percent 3 %; Monocytes Absolute Manual 0.27 K/mm3 (0.1-0.90); Monocytes Percent Manual 3 % (3-9); Myelocytes Percent 2 %; Neutrophils Absolute Manual 7.36 K/mm3 (1.7-7.2); Neutrophils Percent Manual 79 % (46-73); Platelet Estimate Decreased (Adequate)
== END 2024-02-02 10:12 | disposition home or self-care (01) ==
LOC: CHSTREATRM 10:13
PROVIDERS: PCP Internal Medicine Hematology; Visit Provider Internal Medicine Hematology
DX: C91.10 Chronic lymphocytic leukemia of B-cell type not having achieved remission (principal)
CPT/HCPCS: 36415; 36591; 80053; 85025; 85055; 86850; 86900; 86901

== ENCOUNTER 2024-02-08 10:15 | Outpatient (CLI) | payer MEDICARE, SELFPAY ==
[2024-02-08 10:41] VITALS: BMI 22.0
[2024-02-08] MEDS: HEPARIN SODIUM LOCK FLUSH 500 UNITS/5 ML SYRINGE (10:45)
[2024-02-08 10:54] LABS: Hematocrit 34.2 % (35.0-42.0); Hemoglobin 11.3 g/dL (11.7-13.8); Mean Corpuscular Hemoglobin 30.4 pg (27.0-31.0); Mean Corpuscular Volume 91.9 fL (78.0-102.0); Mean Platelet Volume 10.1 fl (9.2-11.8); Platelet Count Result 139 K/mm3 (150-420); Red Blood Count 3.72 M/mm3 (4.20-5.40); Red Cell Distribution Width 14.2 % (11.6-14.4); White Blood Count 2.1 K/mm3 (4.8-10.8)
[2024-02-08 11:13] LABS: Band Neutrophils Percent 0 % (0-6); Lymphocytes Absolute Manual 0.77 K/mm3 (1.1-4.5); Lymphocytes Percent Manual 37 % (18-44); Monocytes Absolute Manual 0.14 K/mm3 (0.1-0.90); Monocytes Percent Manual 7 % (3-9); Neutrophils Absolute Manual 1.17 K/mm3 (1.7-7.2); Neutrophils Percent Manual 56 % (46-73); Total Cells Counted 100
[2024-02-08 11:14] LABS: Platelet Estimate Adequate (Adequate)
== END 2024-02-08 10:16 | disposition home or self-care (01) ==
PROVIDERS: PCP Internal Medicine Hematology; Visit Provider Internal Medicine Hematology
DX: C91.10 Chronic lymphocytic leukemia of B-cell type not having achieved remission (principal)
CPT/HCPCS: 36415; 36591; 85025

== ENCOUNTER 2024-02-10 10:20 | Outpatient (CLI) | payer MEDICARE, BC, SELFPAY ==
[2024-02-10] MEDS: FILGRASTIM-SNDZ 300 MCG/0.5 ML SYRINGE SUB-Q (10:37)
[2024-02-10 10:40] VITALS: BP 127/73; PULSE 96; RESP 16; TEMP 36.4; O2SAT 98; BMI 22.0
== END 2024-02-10 10:21 | disposition home or self-care (01) ==
PROVIDERS: PCP Internal Medicine Hematology; Visit Provider Internal Medicine Hematology
DX: D70.8 Other neutropenia (principal); C91.10 Chronic lymphocytic leukemia of B-cell type not having achieved remission
CPT/HCPCS: 96372; Q5101

== ENCOUNTER 2024-02-11 10:17 | Outpatient (CLI) | payer MEDICARE, BC, SELFPAY ==
[2024-02-11] MEDS: FILGRASTIM-SNDZ 300 MCG/0.5 ML SYRINGE SUB-Q (10:37)
[2024-02-11 10:49] VITALS: BP 103/60; PULSE 88; RESP 14; TEMP 36.2; O2SAT 99; BMI 22.0
== END 2024-02-11 10:18 | disposition home or self-care (01) ==
PROVIDERS: PCP Internal Medicine Hematology; Visit Provider Internal Medicine Hematology
DX: D70.8 Other neutropenia (principal); C91.10 Chronic lymphocytic leukemia of B-cell type not having achieved remission
CPT/HCPCS: 96372; Q5101

== ENCOUNTER 2024-02-12 10:25 | Outpatient (CLI) | payer MEDICARE, BC, SELFPAY ==
[2024-02-12 10:36] VITALS: BP 107/68; PULSE 88; RESP 16; TEMP 36.4; O2SAT 99; BMI 22.0
[2024-02-12] MEDS: FILGRASTIM-SNDZ 300 MCG/0.5 ML SYRINGE SUB-Q (10:44)
== END 2024-02-12 10:26 | disposition home or self-care (01) ==
PROVIDERS: PCP Internal Medicine Hematology; Visit Provider Internal Medicine Hematology
DX: D70.8 Other neutropenia (principal); C91.10 Chronic lymphocytic leukemia of B-cell type not having achieved remission
CPT/HCPCS: 96372; Q5101

== ENCOUNTER 2024-02-15 09:50 | Outpatient (CLI) | payer MEDICARE, SELFPAY ==
[2024-02-15 10:17] LABS: Hematocrit 36.5 % (35.0-42.0); Hemoglobin 12.1 g/dL (11.7-13.8); Mean Corpuscular HGB Conc 33.2 g/dL (32-36); Mean Corpuscular Hemoglobin 30.2 pg (27.0-31.0); Mean Platelet Volume 9.6 fl (9.2-11.8); Platelet Count Result 165 K/mm3 (150-420); Red Blood Count 4.01 M/mm3 (4.20-5.40); Red Cell Distribution Width 15.2 % (11.6-14.4); White Blood Count 2.1 K/mm3 (4.8-10.8)
[2024-02-15 10:37] LABS: Alanine Aminotransferase 19 U/L (14-59); Albumin Level 3.8 g/dL (3.4-5.0); Alkaline Phosphatase 79 U/L (46-116); Anion Gap 9 mmol/L (4-12); Aspartate Amino Transferase 22 U/L (15-37); Bilirubin,Total 0.2 mg/dL (0.00-1.00); Blood Urea Nitrogen 8 mg/dL (7-18); Carbon Dioxide 27 mmol/L (21-32); Chloride 105 mmol/L (98-108); Estimated Glomerular Filt Rate > 60; Glucose 101 mg/dL (70-99); Osmolality Calculated 290 mOsm/kg (285-295); Potassium 3.7 mmol/L (3.5-5.1); Sodium 141 mmol/L (136-145); Total Protein 6.7 g/dL (6.4-8.2); Uric Acid 4.6 mg/dL (2.6-6.0)
[2024-02-15 10:45] LABS: Band Neutrophils Percent 0 % (0-6); Lymphocytes Absolute Manual 0.88 K/mm3 (1.1-4.5); Lymphocytes Percent Manual 42 % (18-44); Monocytes Absolute Manual 0.33 K/mm3 (0.1-0.90); Monocytes Percent Manual 16 % (3-9); Neutrophils Absolute Manual 0.88 K/mm3 (1.7-7.2); Neutrophils Percent Manual 42 % (46-73); Platelet Estimate Adequate (Adequate); Total Cells Counted 100
== END 2024-02-15 09:51 | disposition home or self-care (01) ==
LOC: CHSLAB 09:53
PROVIDERS: Visit Provider Internal Medicine Hematology
DX: C91.10 Chronic lymphocytic leukemia of B-cell type not having achieved remission (principal)
CPT/HCPCS: 36415; 80053; 84550; 85025

== ENCOUNTER 2024-02-16 09:17 | Outpatient (CLI) | payer MEDICARE, BC, SELFPAY ==
[2024-02-16 09:30] VITALS: BP 128/73; PULSE 88; RESP 14; TEMP 36.6; O2SAT 98; BMI 22.1
[2024-02-16] MEDS: SODIUM CHLORIDE 0.9% IV 250 ML 10 ML IVPB (09:35)
[2024-02-16] MEDS: diphenhydrAMINE HCl INJ 50 MG/ML VIAL 25 MG IV PUSH (09:47)
[2024-02-16] MEDS: FAMOTIDINE 20 MG/2 ML VIAL IV PUSH (09:48)
[2024-02-16] MEDS: ACETAMINOPHEN 325 MG TABLET 650 MG PO (09:48)
[2024-02-16] MEDS: dexAMETHasone SOD PHOS INJ 4 MG/ML VIAL 12 MG IV PUSH (09:51)
[2024-02-16 10:55] VITALS: BP 127/70; PULSE 88; RESP 14; TEMP 36.6; O2SAT 98
[2024-02-16 11:33] VITALS: BP 112/69; PULSE 84; RESP 14; O2SAT 98
[2024-02-16 12:46] VITALS: BP 109/69; PULSE 88; RESP 14; O2SAT 98
[2024-02-16] MEDS: HEPARIN SODIUM LOCK FLUSH 500 UNITS/5 ML SYRINGE IV PUSH (14:05)
[2024-02-16 14:08] VITALS: BP 109/73; PULSE 86; RESP 14; TEMP 36.6; O2SAT 98
--- NOTE | 2024-02-16 14:21 | PC.NURSE ---
Patient here for treatment today. Labs ok'd by Dr. Reyes that were drawn yesterday. Education given. All concerns voiced answered. Tx administered. SEE MAR. Tolerated well. DC instructions given. Safe exit of hospital.
== END 2024-02-16 09:18 | disposition home or self-care (01) ==
PROVIDERS: PCP Internal Medicine Hematology; Visit Provider Internal Medicine Hematology
DX: Z51.11 Encounter for antineoplastic chemotherapy (principal); C91.10 Chronic lymphocytic leukemia of B-cell type not having achieved remission
CPT/HCPCS: 96375; 96413; 96415; A9270; J1100; J1200; J7030; J7050; J9301

== ENCOUNTER 2024-02-22 10:59 | Outpatient (CLI) | payer MEDICARE, BC, SELFPAY ==
[2024-02-22] MEDS: FILGRASTIM-SNDZ 300 MCG/0.5 ML SYRINGE SUB-Q (11:21)
[2024-02-22] MEDS: HEPARIN SODIUM LOCK FLUSH 500 UNITS/5 ML SYRINGE IV PUSH (11:21)
[2024-02-22 11:23] VITALS: BP 125/71; PULSE 88; RESP 14; TEMP 36.4; O2SAT 99; BMI 21.9
--- NOTE | 2024-02-22 11:36 | PC.NURSE ---
Tolerated #5 of 5 G-CSF injections and labs drawn from port a cath. Education given. SEE patient care and MAR. Tolerated well. Safe exit of hospital.
[2024-02-22 11:48] LABS: Hematocrit 37.1 % (35.0-42.0); Hemoglobin 12.3 g/dL (11.7-13.8); Immature Platelet Fraction Pct 2.6 % (1.0-7.0); Mean Corpuscular HGB Conc 33.2 g/dL (32-36); Mean Corpuscular Hemoglobin 30.7 pg (27.0-31.0); Mean Corpuscular Volume 92.5 fL (78.0-102.0); Mean Platelet Volume 10.8 fl (9.2-11.8); Platelet Count Result 107 K/mm3 (150-420); Red Blood Count 4.01 M/mm3 (4.20-5.40); Red Cell Distribution Width 15.5 % (11.6-14.4); White Blood Count 7.3 K/mm3 (4.8-10.8)
[2024-02-22 13:10] LABS: Band Neutrophils Percent 2 % (0-6); Eosinophils Percent Manual 0 % (1-6); Lymphocytes Absolute Manual 1.31 K/mm3 (1.1-4.5); Lymphocytes Percent Manual 18 % (18-44); Monocytes Absolute Manual 0.73 K/mm3 (0.1-0.90); Monocytes Percent Manual 10 % (3-9); Neutrophils Absolute Manual 5.03 K/mm3 (1.7-7.2); Neutrophils Percent Manual 67 % (46-73); Total Cells Counted 100
[2024-02-22 13:11] LABS: Metamyelocytes Percent 2 %; Myelocytes Percent 1 %; Nucleated Red Blood Cells 1 %; Platelet Estimate Decreased (Adequate)
== END 2024-02-22 11:00 | disposition home or self-care (01) ==
PROVIDERS: PCP Internal Medicine Hematology; Visit Provider Internal Medicine Hematology
DX: D70.8 Other neutropenia (principal); C91.10 Chronic lymphocytic leukemia of B-cell type not having achieved remission
CPT/HCPCS: 36415; 36591; 85025; 85055; 96372; Q5101

== ENCOUNTER 2024-02-23 09:54 | Outpatient (CLI) | payer MEDICARE, BC, SELFPAY ==
--- NOTE | ~2024-02-23 | CT_ITS ---
EXAMINATION: CT chest abdomen pelvis w con DATE: 02/23/2024 10:27 INDICATION: Chronic lymphocytic leukemia (CLL). TECHNIQUE: Computed tomography (CT) of the chest, abdomen, and pelvis was performed with 100 mL Omnip aque 350 intravenous contrast. Automated exposure control and iterative reconstruction technique were employed. The dose-length product was 349.46 mGy-cm. COMPARISON: CT abdomen and pelvis 09/30/23 FINDINGS: CHEST CT: The lungs demonstrate mild atelectasis. No pleural effusion. The heart size is normal. There are joselin nary artery calcifications. No pericardial effusion. There is a right internal jugular port with tip in right atrium. There are no pathologically enlarged lymph nodes. There is a small sliding hiatal he rnia. ABDOMEN/PELVIS CT: The liver is normal. There are gallstones in the gallbladder, which is normal in size. There is mild splenomegaly. There are 15 mm and 5 mm hypodense masses in the spleen. These masses are not visible o n the prior CT, but that CT was without contrast. The pancreas and adrenal glands are normal. There i s cortical thinning of the kidneys. There are cysts in the kidneys measuring up to 16 mm on the left. There are no dilated loops of bowel. The appendix is normal. Aortic atherosclerosis is noted. There is no free intraperitoneal fluid. There are no pathologically enlarged lymph nodes. There is a chroni c compression fracture of L1. There is mild lumbar spondylosis. IMPRESSION: 1. No lymphadenopathy. 2. Mild splenomegaly. Two small splenic masses may be granulomatous disease or CLL. Reviewed, dictated and finalized at location A.
== END 2024-02-23 09:55 | disposition home or self-care (01) ==
PROVIDERS: PCP Internal Medicine Hematology; Visit Provider Internal Medicine Hematology
DX: C91.10 Chronic lymphocytic leukemia of B-cell type not having achieved remission (principal); R16.1 Splenomegaly, not elsewhere classified
CPT/HCPCS: 71260; 74177; Q9967

== ENCOUNTER 2024-03-07 10:08 | Outpatient (RCR) | payer MEDICARE, BC, SELFPAY ==
[2024-02-18] MEDS: FILGRASTIM-SNDZ 300 MCG/0.5 ML SYRINGE SUB-Q (10:03)
[2024-02-18 10:06] VITALS: BP 111/63; PULSE 88; RESP 14; TEMP 36.4; O2SAT 99; BMI 21.9
[2024-02-19] MEDS: FILGRASTIM-SNDZ 300 MCG/0.5 ML SYRINGE SUB-Q (10:14)
[2024-02-19 10:16] VITALS: BP 116/74; PULSE 88; RESP 14; TEMP 36.3; O2SAT 98; BMI 21.9
[2024-02-20] MEDS: FILGRASTIM-SNDZ 300 MCG/0.5 ML SYRINGE SUB-Q (10:24)
[2024-02-20 10:25] VITALS: BP 120/77; PULSE 91; RESP 16; TEMP 36.7; O2SAT 98; BMI 21.9
--- NOTE | 2024-02-20 10:25 | PC.NURSE ---
Patient here for zarxio injection. Vital signs stable. Patient reports she has been a little achy but otherwise feeling okay. Encouraged patient to increase fluids. tolerated injection to right arm well. Denies any questions or concerns at this time. Patient left floor ambulatory. Patient will be back tomorrow at same time for zarxio.
[2024-02-21 10:20] VITALS: BP 124/70; PULSE 85; RESP 16; TEMP 35.8; O2SAT 99
[2024-02-21] MEDS: FILGRASTIM-SNDZ 300 MCG/0.5 ML SYRINGE SUB-Q (10:24)
[2024-02-21 10:25] VITALS: BMI 21.9
--- NOTE | 2024-02-21 10:25 | PC.NURSE ---
Patient here for zarxio injection. tolerated well to left upper arm. denies any further diarrhea. Denies any questions or concerns at time of discharge. left floor ambulatory.
[2024-03-07 10:20] VITALS: BP 111/63; PULSE 88; RESP 14; TEMP 36.4; O2SAT 98; BMI 21.8
[2024-03-07] MEDS: HEPARIN SODIUM LOCK FLUSH 500 UNITS/5 ML SYRINGE (10:40)
[2024-03-07 10:53] LABS: Hematocrit 34.5 % (35.0-42.0); Hemoglobin 11.5 g/dL (11.7-13.8); Mean Corpuscular HGB Conc 33.3 g/dL (32-36); Mean Corpuscular Hemoglobin 30.7 pg (27.0-31.0); Mean Platelet Volume 9.7 fl (9.2-11.8); Platelet Count Result 167 K/mm3 (150-420); Red Blood Count 3.75 M/mm3 (4.20-5.40); Red Cell Distribution Width 15.3 % (11.6-14.4)
[2024-03-07 10:55] LABS: White Blood Count 1.2 K/mm3 (4.8-10.8)
--- NOTE | 2024-03-07 11:01 | PC.NURSE ---
03/07/24 1050 Lab call with abnormal wbc count. Lab will fax CBC results to Dr. Reyes in [place]. Will be awaiting new orders if needed.
[2024-03-07 11:08] LABS: Band Neutrophils Percent 0 % (0-6); Lymphocytes Absolute Manual 0.62 K/mm3 (1.1-4.5); Lymphocytes Percent Manual 52 % (18-44); Monocytes Absolute Manual 0.36 K/mm3 (0.1-0.90); Monocytes Percent Manual 30 % (3-9); Neutrophils Absolute Manual 0.21 K/mm3 (1.7-7.2); Neutrophils Percent Manual 18 % (46-73); Platelet Estimate Adequate (Adequate); Total Cells Counted 100
== END 2024-03-07 10:09 | disposition home or self-care (01) ==
LOC: CHSTREATRM 10:08
PROVIDERS: Visit Provider Internal Medicine Hematology
DX: D70.8 Other neutropenia (principal)
CPT/HCPCS: 36415; 36591; 85025; 96372; Q5101

== ENCOUNTER 2024-03-08 10:13 | Outpatient (CLI) | payer MEDICARE, BC, SELFPAY ==
[2024-03-08 10:30] VITALS: BP 112/70; PULSE 88; RESP 14; TEMP 36.3; O2SAT 98; BMI 21.8
[2024-03-08] MEDS: FILGRASTIM-SNDZ 300 MCG/0.5 ML SYRINGE SUB-Q (11:06)
[2024-03-08 11:15] VITALS: BP 121/63
== END 2024-03-08 10:14 | disposition home or self-care (01) ==
PROVIDERS: Visit Provider Internal Medicine Hematology
DX: D70.8 Other neutropenia (principal); C91.10 Chronic lymphocytic leukemia of B-cell type not having achieved remission
CPT/HCPCS: 96372; Q5101

== ENCOUNTER 2024-03-09 10:17 | Outpatient (CLI) | payer MEDICARE, BC, SELFPAY ==
[2024-03-09 10:26] VITALS: BMI 21.8
[2024-03-09 10:32] VITALS: BP 120/64; PULSE 80; RESP 14; TEMP 36.6; O2SAT 98
[2024-03-09] MEDS: FILGRASTIM-SNDZ 300 MCG/0.5 ML SYRINGE SUB-Q (10:37)
--- NOTE | 2024-03-09 10:39 | PC.NURSE ---
Tolerated Zarxio injection well. see MAR/patient care notes.
== END 2024-03-09 10:18 | disposition home or self-care (01) ==
PROVIDERS: Visit Provider Internal Medicine Hematology
DX: D70.8 Other neutropenia (principal); C91.10 Chronic lymphocytic leukemia of B-cell type not having achieved remission
CPT/HCPCS: 96372; Q5101

== ENCOUNTER 2024-03-10 10:15 | Outpatient (CLI) | payer MEDICARE, BC, SELFPAY ==
[2024-03-10 10:29] VITALS: BP 119/71; PULSE 88; RESP 14; TEMP 36.3; O2SAT 98; BMI 21.8
[2024-03-10] MEDS: FILGRASTIM-SNDZ 300 MCG/0.5 ML SYRINGE SUB-Q (10:34)
== END 2024-03-10 10:16 | disposition home or self-care (01) ==
PROVIDERS: Visit Provider Internal Medicine Hematology
DX: D70.8 Other neutropenia (principal); C91.10 Chronic lymphocytic leukemia of B-cell type not having achieved remission
CPT/HCPCS: 96372; Q5101

== ENCOUNTER 2024-03-11 10:08 | Outpatient (CLI) | payer MEDICARE, SELFPAY ==
[2024-03-11 10:30] VITALS: BP 121/70; PULSE 88; RESP 14; TEMP 36.4; O2SAT 99; BMI 21.8
[2024-03-11 10:47] LABS: Hematocrit 36.2 % (35.0-42.0); Hemoglobin 11.9 g/dL (11.7-13.8); Mean Corpuscular HGB Conc 32.9 g/dL (32-36); Mean Corpuscular Hemoglobin 30.1 pg (27.0-31.0); Mean Corpuscular Volume 91.6 fL (78.0-102.0); Mean Platelet Volume 10.1 fl (9.2-11.8); Platelet Count Result 143 K/mm3 (150-420); Red Blood Count 3.95 M/mm3 (4.20-5.40); Red Cell Distribution Width 15.5 % (11.6-14.4)
== END 2024-03-11 10:09 | disposition home or self-care (01) ==
LOC: CHSLAB 10:10 → CHSTREATRM 11:24
PROVIDERS: Visit Provider Internal Medicine Hematology
DX: D70.8 Other neutropenia (principal); C91.10 Chronic lymphocytic leukemia of B-cell type not having achieved remission
CPT/HCPCS: 36415; 36591; 85027

== ENCOUNTER 2024-03-30 11:25 | Outpatient (CLI) | payer MEDICARE, SELFPAY ==
[2024-03-30 11:53] LABS: Hematocrit 34.5 % (35.0-42.0); Hemoglobin 11.6 g/dL (11.7-13.8); Mean Corpuscular HGB Conc 33.6 g/dL (32-36); Mean Corpuscular Hemoglobin 30.7 pg (27.0-31.0); Mean Corpuscular Volume 91.3 fL (78.0-102.0); Mean Platelet Volume 9.3 fl (9.2-11.8); Platelet Count Result 142 K/mm3 (150-420); Red Blood Count 3.78 M/mm3 (4.20-5.40); Red Cell Distribution Width 15.4 % (11.6-14.4); White Blood Count 2.7 K/mm3 (4.8-10.8)
[2024-03-30 11:54] LABS: Add Urine Microscopic? YES; Appearance Urine Clear (Clear); Bilirubin Urine Negative (Negative); Blood Urine 2+ (Negative); Color Urine Yellow (Yellow); Glucose Urine UA Negative (Negative); Ketones Urine Negative (Negative); Leukocyte Esterase Ur Negative LEU/UL (Negative); Nitrate Urine Negative (Negative); Protein Urine Negative (Negative); Specific Grav Ur 1.025 (1.010-1.020); Urobilinogen Urine 0.2 mg/dL (0.2-1.0)
[2024-03-30 12:02] LABS: Squamous Epithelial Cell Urine Moderate /hpf (Few); WBC Urine None seen /hpf (0-3)
[2024-03-30 12:03] LABS: Bacteria Urine Trace /hpf; Mucus Urine Moderate /lpf
[2024-03-30 12:09] LABS: Partial Thromboplastin Time 36.5 Sec (23.9-30.70); Prothrombin Time 10.5 Seconds (9.50-12.1)
[2024-03-30 12:10] LABS: Band Neutrophils Percent 0 % (0-6); Lymphocytes Absolute Manual 0.51 K/mm3 (1.1-4.5); Lymphocytes Percent Manual 19 % (18-44); Monocytes Absolute Manual 0.51 K/mm3 (0.1-0.90); Monocytes Percent Manual 19 % (3-9); Neutrophils Absolute Manual 1.67 K/mm3 (1.7-7.2); Neutrophils Percent Manual 62 % (46-73); Platelet Estimate Adequate (Adequate); Total Cells Counted 100
[2024-03-30 12:34] LABS: Alanine Aminotransferase 27 U/L (14-59); Albumin Level 3.9 g/dL (3.4-5.0); Alkaline Phosphatase 83 U/L (46-116); Anion Gap 9 mmol/L (4-12); Aspartate Amino Transferase 20 U/L (15-37); Bilirubin,Total 0.4 mg/dL (0.00-1.00); Blood Urea Nitrogen 11 mg/dL (7-18); Calcium 8.8 mg/dL (8.5-10.1); Carbon Dioxide 28 mmol/L (21-32); Chloride 106 mmol/L (98-108); Estimated Glomerular Filt Rate > 60; Glucose 97 mg/dL (70-99); Lactate Dehydrogenase 148 U/L (81-234); Osmolality Calculated 295 mOsm/kg (285-295); Potassium 4.5 mmol/L (3.5-5.1); Sodium 143 mmol/L (136-145); Total Protein 6.7 g/dL (6.4-8.2)
== END 2024-03-30 11:26 | disposition home or self-care (01) ==
LOC: CHSTREATRM 11:29 → CHSLAB 11:38
PROVIDERS: PCP Internal Medicine Hematology; Visit Provider Internal Medicine Hematology
DX: C91.10 Chronic lymphocytic leukemia of B-cell type not having achieved remission (principal); D69.6 Thrombocytopenia, unspecified
CPT/HCPCS: 36415; 80053; 81001; 83615; 85025; 85610; 85730; 86850; 86900; 86901

== ENCOUNTER 2024-04-04 10:11 | Outpatient (CLI) | payer MEDICARE, SELFPAY ==
[2024-04-04 10:25] VITALS: BP 122/72; PULSE 88; RESP 14; TEMP 36.3; O2SAT 100; BMI 21.5
[2024-04-04] MEDS: FILGRASTIM-SNDZ 300 MCG/0.5 ML SYRINGE SUB-Q (10:32)
--- NOTE | 2024-04-04 11:16 | PC.NURSE ---
Tolerated Zarxio injection well. SEE MAR and patient care notes
== END 2024-04-04 10:12 | disposition home or self-care (01) ==
PROVIDERS: PCP Internal Medicine Hematology; Visit Provider Internal Medicine Hematology
DX: D70.8 Other neutropenia (principal); C91.10 Chronic lymphocytic leukemia of B-cell type not having achieved remission
CPT/HCPCS: 96372; Q5101

== ENCOUNTER 2024-04-05 10:23 | Outpatient (CLI) | payer MEDICARE, BC, SELFPAY ==
[2024-04-05 10:32] VITALS: BP 116/69; PULSE 92; RESP 14; TEMP 36.5; O2SAT 98; BMI 21.4
[2024-04-05] MEDS: FILGRASTIM-SNDZ 300 MCG/0.5 ML SYRINGE SUB-Q (10:39)
--- NOTE | 2024-04-05 10:41 | PC.NURSE ---
Patient tolerated #2 of 2 Zarxio injection well today. SEE MAR and patient care notes.
== END 2024-04-05 10:24 | disposition home or self-care (01) ==
PROVIDERS: Visit Provider Internal Medicine Hematology
DX: D70.8 Other neutropenia (principal); C91.10 Chronic lymphocytic leukemia of B-cell type not having achieved remission
CPT/HCPCS: 96372; Q5101

== ENCOUNTER 2024-04-07 10:14 | Outpatient (CLI) | payer MEDICARE, BC, SELFPAY ==
[2024-04-07 10:30] VITALS: BP 126/70; PULSE 84; RESP 14; TEMP 36.5; O2SAT 99; BMI 21.5
[2024-04-07] MEDS: HEPARIN SODIUM LOCK FLUSH 500 UNITS/5 ML SYRINGE (10:52)
[2024-04-07 10:54] LABS: Hematocrit 35.2 % (35.0-42.0); Hemoglobin 11.4 g/dL (11.7-13.8); Mean Corpuscular HGB Conc 32.4 g/dL (32-36); Mean Corpuscular Hemoglobin 30.2 pg (27.0-31.0); Mean Corpuscular Volume 93.4 fL (78.0-102.0); Mean Platelet Volume 9.5 fl (9.2-11.8); Platelet Count Result 149 K/mm3 (150-420); Red Blood Count 3.77 M/mm3 (4.20-5.40); Red Cell Distribution Width 16.1 % (11.6-14.4); White Blood Count 4.7 K/mm3 (4.8-10.8)
== END 2024-04-07 10:15 | disposition home or self-care (01) ==
PROVIDERS: PCP Internal Medicine Hematology; Visit Provider Internal Medicine Hematology
DX: C91.10 Chronic lymphocytic leukemia of B-cell type not having achieved remission (principal)
CPT/HCPCS: 36415; 36591; 85027

== ENCOUNTER 2024-04-20 13:34 | Outpatient (CLI) | payer MEDICARE, SELFPAY ==
[2024-04-20 13:35] VITALS: BMI 21.8
[2024-04-20 13:50] LABS: Hematocrit 33.3 % (35.0-42.0); Hemoglobin 11.1 g/dL (11.7-13.8); Mean Corpuscular HGB Conc 33.3 g/dL (32-36); Mean Corpuscular Hemoglobin 31.3 pg (27.0-31.0); Mean Corpuscular Volume 93.8 fL (78.0-102.0); Mean Platelet Volume 9.1 fl (9.2-11.8); Platelet Count Result 153 K/mm3 (150-420); Red Blood Count 3.55 M/mm3 (4.20-5.40); Red Cell Distribution Width 15.1 % (11.6-14.4)
[2024-04-20 13:54] LABS: White Blood Count 1.4 K/mm3 (4.8-10.8)
[2024-04-20 14:03] LABS: Band Neutrophils Percent 0 % (0-6); Lymphocytes Absolute Manual 0.75 K/mm3 (1.1-4.5); Lymphocytes Percent Manual 54 % (18-44); Monocytes Absolute Manual 0.29 K/mm3 (0.1-0.90); Monocytes Percent Manual 21 % (3-9); Neutrophils Absolute Manual 0.35 K/mm3 (1.7-7.2); Neutrophils Percent Manual 25 % (46-73); Platelet Estimate Adequate (Adequate); Total Cells Counted 100
[2024-04-20] MEDS: HEPARIN SODIUM LOCK FLUSH 500 UNITS/5 ML SYRINGE (14:05)
== END 2024-04-20 13:35 | disposition home or self-care (01) ==
LOC: CHSTREATRM 13:37
PROVIDERS: PCP Internal Medicine Hematology; Visit Provider Internal Medicine Hematology
DX: C91.10 Chronic lymphocytic leukemia of B-cell type not having achieved remission (principal)
CPT/HCPCS: 36415; 36591; 85025

== ENCOUNTER 2024-04-21 10:18 | Outpatient (CLI) | payer MEDICARE, BC, SELFPAY ==
[2024-04-21 10:27] VITALS: BP 116/73; PULSE 80; RESP 14; TEMP 36.6; O2SAT 99; BMI 21.9
[2024-04-21] MEDS: FILGRASTIM-SNDZ 300 MCG/0.5 ML SYRINGE SUB-Q (10:37)
--- NOTE | 2024-04-21 10:48 | PC.NURSE ---
Patient tolerated #1 of 2 G-CSF (Zarxio) injections. SEE MAR/patient care notes.
== END 2024-04-21 10:19 | disposition home or self-care (01) ==
PROVIDERS: PCP Internal Medicine Hematology; Visit Provider Internal Medicine Hematology
DX: D70.8 Other neutropenia (principal); C91.10 Chronic lymphocytic leukemia of B-cell type not having achieved remission
CPT/HCPCS: 96372; Q5101

== ENCOUNTER 2024-04-22 10:30 | Outpatient (CLI) | payer MEDICARE, BC, SELFPAY ==
[2024-04-22 10:50] VITALS: BP 100/64; PULSE 92; RESP 16; TEMP 36.6; O2SAT 99; BMI 21.9
[2024-04-22] MEDS: FILGRASTIM-SNDZ 300 MCG/0.5 ML SYRINGE SUB-Q (10:51)
--- NOTE | 2024-04-22 10:55 | PC.NURSE ---
patient here for zarxio injection, patient tolerated well. Denies any questions at discharge.
== END 2024-04-22 10:55 | disposition home or self-care (01) ==
PROVIDERS: Visit Provider Internal Medicine Hematology
DX: D70.8 Other neutropenia (principal); C91.10 Chronic lymphocytic leukemia of B-cell type not having achieved remission
CPT/HCPCS: 96372; Q5101

== ENCOUNTER 2024-05-03 10:19 | Outpatient (CLI) | payer MEDICARE, BC, SELFPAY ==
[2024-05-03 11:52] LABS: Band Neutrophils Percent 0 % (0-6); Basophils Percent Manual 0 % (0-1); Eosinophils Percent Manual 0 % (1-6); Hematocrit 33.8 % (35.0-42.0); Hemoglobin 11.4 g/dL (11.7-13.8); Lymphocytes Absolute Manual 0.69 K/mm3 (1.1-4.5); Lymphocytes Percent Manual 30 % (18-44); Mean Corpuscular HGB Conc 33.7 g/dL (32-36); Mean Corpuscular Hemoglobin 31.7 pg (27.0-31.0); Mean Corpuscular Volume 93.9 fL (78.0-102.0); Mean Platelet Volume 9.9 fl (9.2-11.8); Monocytes Absolute Manual 0.27 K/mm3 (0.1-0.90); Monocytes Percent Manual 12 % (3-9); Neutrophils Absolute Manual 1.56 K/mm3 (1.7-7.2); Neutrophils Percent Manual 68 % (46-73); Platelet Count Result 149 K/mm3 (150-420); Red Cell Distribution Width 14.7 % (11.6-14.4); Total Cells Counted 100; White Blood Count 2.3 K/mm3 (4.8-10.8)
[2024-05-03 11:53] LABS: Platelet Estimate Adequate (Adequate)
== END 2024-05-03 10:20 | disposition home or self-care (01) ==
LOC: CHSTREATRM 11:38
PROVIDERS: Visit Provider Internal Medicine Hematology
DX: C91.10 Chronic lymphocytic leukemia of B-cell type not having achieved remission (principal)
CPT/HCPCS: 36415; 85025

== ENCOUNTER 2024-05-17 10:28 | Outpatient (CLI) | payer MEDICARE, BC, SELFPAY ==
[2024-05-17 10:57] LABS: Hematocrit 35.6 % (35.0-42.0); Hemoglobin 11.9 g/dL (11.7-13.8); Mean Corpuscular HGB Conc 33.4 g/dL (32-36); Mean Corpuscular Hemoglobin 31.2 pg (27.0-31.0); Mean Corpuscular Volume 93.4 fL (78.0-102.0); Mean Platelet Volume 9.5 fl (9.2-11.8); Platelet Count Result 141 K/mm3 (150-420); Red Blood Count 3.81 M/mm3 (4.20-5.40); Red Cell Distribution Width 14.5 % (11.6-14.4); White Blood Count 3.2 K/mm3 (4.8-10.8)
[2024-05-17] MEDS: HEPARIN SODIUM LOCK FLUSH 500 UNITS/5 ML SYRINGE (10:57)
--- NOTE | 2024-05-17 10:58 | PC.NURSE ---
Called by lab that patient request lab work to drawn from port a cath. Procedure explained. No concerns voiced. Blood drawn from port see patient care notes. Tolerated well.
[2024-05-17 11:29] LABS: Band Neutrophils Percent 0 % (0-6); Lymphocytes Absolute Manual 0.64 K/mm3 (1.1-4.5); Lymphocytes Percent Manual 20 % (18-44); Neutrophils Percent Manual 69 % (46-73); Total Cells Counted 100
[2024-05-17 11:30] LABS: Monocytes Absolute Manual 0.35 K/mm3 (0.1-0.90); Monocytes Percent Manual 11 % (3-9); Platelet Estimate Adequate (Adequate)
== END 2024-05-17 10:29 | disposition home or self-care (01) ==
PROVIDERS: Visit Provider Internal Medicine Hematology
DX: C91.10 Chronic lymphocytic leukemia of B-cell type not having achieved remission (principal)
CPT/HCPCS: 36415; 36591; 85025

== ENCOUNTER 2024-05-31 10:53 | Outpatient (CLI) | payer MEDICARE, BC, SELFPAY ==
[2024-05-31] MEDS: HEPARIN SODIUM LOCK FLUSH 500 UNITS/5 ML SYRINGE (11:10)
[2024-05-31 11:46] LABS: Hematocrit 34.1 % (35.0-42.0); Hemoglobin 11.4 g/dL (11.7-13.8); Mean Corpuscular HGB Conc 33.4 g/dL (32-36); Mean Corpuscular Hemoglobin 31.1 pg (27.0-31.0); Mean Corpuscular Volume 93.2 fL (78.0-102.0); Mean Platelet Volume 9.6 fl (9.2-11.8); Platelet Count Result 138 K/mm3 (150-420); Red Blood Count 3.66 M/mm3 (4.20-5.40); Red Cell Distribution Width 14.3 % (11.6-14.4); White Blood Count 2.5 K/mm3 (4.8-10.8)
[2024-05-31 12:01] LABS: Band Neutrophils Percent 0 % (0-6); Basophils Percent Manual 0 % (0-1); Eosinophils Absolute Manual 0.02 K/mm3 (0.02-0.50); Eosinophils Percent Manual 1 % (1-6); Lymphocytes Percent Manual 28 % (18-44); Monocytes Absolute Manual 0.15 K/mm3 (0.1-0.90); Monocytes Percent Manual 6 % (3-9); Neutrophils Absolute Manual 1.62 K/mm3 (1.7-7.2); Neutrophils Percent Manual 65 % (46-73); Total Cells Counted 100
[2024-05-31 12:02] LABS: Platelet Estimate Adequate (Adequate)
== END 2024-05-31 10:54 | disposition home or self-care (01) ==
LOC: CHSLAB 11:23 → CHSTREATRM 11:24
PROVIDERS: PCP Internal Medicine Hematology; Visit Provider Internal Medicine Hematology
DX: C91.10 Chronic lymphocytic leukemia of B-cell type not having achieved remission (principal)
CPT/HCPCS: 36415; 85025; 86850; 86900; 86901

== ENCOUNTER 2024-06-13 10:30 | Outpatient (CLI) | payer MEDICARE, BC, SELFPAY ==
[2024-06-13 11:31] LABS: Hematocrit 34.6 % (35.0-42.0); Hemoglobin 11.7 g/dL (11.7-13.8); Mean Corpuscular HGB Conc 33.8 g/dL (32-36); Mean Corpuscular Hemoglobin 31.5 pg (27.0-31.0); Mean Platelet Volume 9.7 fl (9.2-11.8); Platelet Count Result 156 K/mm3 (150-420); Red Blood Count 3.72 M/mm3 (4.20-5.40); White Blood Count 2.3 K/mm3 (4.8-10.8)
[2024-06-13 11:55] LABS: Band Neutrophils Percent 1 % (0-6); Lymphocytes Absolute Manual 0.75 K/mm3 (1.1-4.5); Lymphocytes Percent Manual 33 % (18-44); Monocytes Absolute Manual 0.43 K/mm3 (0.1-0.90); Monocytes Percent Manual 19 % (3-9); Neutrophils Percent Manual 47 % (46-73); Platelet Estimate Adequate (Adequate); Total Cells Counted 100
== END 2024-06-13 10:31 | disposition home or self-care (01) ==
PROVIDERS: PCP Internal Medicine Hematology; Visit Provider Internal Medicine Hematology
DX: C91.10 Chronic lymphocytic leukemia of B-cell type not having achieved remission (principal)
CPT/HCPCS: 36415; 36591; 85025; 86850; 86900; 86901

== ENCOUNTER 2024-06-23 10:18 | Outpatient (CLI) | payer MEDICARE, BC, SELFPAY ==
[2024-06-23 10:34] VITALS: BP 117/65; PULSE 84; RESP 14; TEMP 36.6; O2SAT 98; BMI 22.3
[2024-06-23] MEDS: FILGRASTIM-SNDZ 300 MCG/0.5 ML SYRINGE SUB-Q (10:40)
--- NOTE | 2024-06-23 10:54 | PC.NURSE ---
Patient here for G-CSF/Zarxio injection r/t WBC 2.3 and ANC right at 1000. Hx of B cell CA. Education given. No concerns voiced. Injection administered. SEE MAR/patient care notes. Tolerated well.
== END 2024-06-23 10:19 | disposition home or self-care (01) ==
PROVIDERS: PCP Internal Medicine Hematology; Visit Provider Internal Medicine Hematology
DX: D70.8 Other neutropenia (principal); C91.10 Chronic lymphocytic leukemia of B-cell type not having achieved remission
CPT/HCPCS: 96372; Q5101

== ENCOUNTER 2024-06-24 10:12 | Outpatient (CLI) | payer MEDICARE, BC, SELFPAY ==
[2024-06-24] MEDS: FILGRASTIM-SNDZ 300 MCG/0.5 ML SYRINGE SUB-Q (10:40)
[2024-06-24 10:43] VITALS: BP 108/72; PULSE 86; RESP 16; TEMP 36.7; O2SAT 94
[2024-06-24 10:46] VITALS: BMI 22.4
== END 2024-06-24 10:13 | disposition home or self-care (01) ==
LOC: CHSLAB 10:15 → CHSTREATRM 10:16
PROVIDERS: Visit Provider Internal Medicine Hematology
DX: D70.8 Other neutropenia (principal); C91.10 Chronic lymphocytic leukemia of B-cell type not having achieved remission
CPT/HCPCS: 96372; Q5101

== ENCOUNTER 2024-06-28 10:21 | Outpatient (CLI) | payer MEDICARE, BC, SELFPAY ==
[2024-06-28 10:34] VITALS: BMI 21.9
[2024-06-28 10:50] LABS: Hemoglobin 11.8 g/dL (11.7-13.8); Mean Corpuscular HGB Conc 33.7 g/dL (32-36); Mean Corpuscular Hemoglobin 31.6 pg (27.0-31.0); Mean Corpuscular Volume 93.8 fL (78.0-102.0); Mean Platelet Volume 9.1 fl (9.2-11.8); Platelet Count Result 147 K/mm3 (150-420); Red Blood Count 3.73 M/mm3 (4.20-5.40); Red Cell Distribution Width 14.3 % (11.6-14.4); White Blood Count 2.8 K/mm3 (4.8-10.8)
[2024-06-28] MEDS: HEPARIN SODIUM LOCK FLUSH 500 UNITS/5 ML SYRINGE (10:53)
[2024-06-28 11:06] LABS: Band Neutrophils Percent 0 % (0-6); Lymphocytes Percent Manual 25 % (18-44); Monocytes Absolute Manual 0.39 K/mm3 (0.1-0.90); Monocytes Percent Manual 14 % (3-9); Neutrophils Percent Manual 61 % (46-73); Total Cells Counted 100
[2024-06-28 11:07] LABS: Platelet Estimate Adequate (Adequate)
== END 2024-06-28 10:22 | disposition home or self-care (01) ==
PROVIDERS: Visit Provider Internal Medicine Hematology
DX: C91.10 Chronic lymphocytic leukemia of B-cell type not having achieved remission (principal)
CPT/HCPCS: 36415; 36591; 85025

== ENCOUNTER 2024-07-13 10:16 | Outpatient (CLI) | payer MEDICARE, BC, SELFPAY ==
[2024-07-13 10:20] VITALS: BMI 21.9
[2024-07-13 10:36] LABS: Hematocrit 35.4 % (35.0-42.0); Hemoglobin 11.8 g/dL (11.7-13.8); Mean Corpuscular HGB Conc 33.3 g/dL (32-36); Mean Corpuscular Hemoglobin 31.1 pg (27.0-31.0); Mean Corpuscular Volume 93.2 fL (78.0-102.0); Mean Platelet Volume 8.6 fl (9.2-11.8); Platelet Count Result 155 K/mm3 (150-420); Red Cell Distribution Width 14.1 % (11.6-14.4); White Blood Count 2.2 K/mm3 (4.8-10.8)
[2024-07-13 10:55] LABS: Band Neutrophils Percent 0 % (0-6); Lymphocytes Absolute Manual 0.68 K/mm3 (1.1-4.5); Lymphocytes Percent Manual 31 % (18-44); Monocytes Absolute Manual 0.55 K/mm3 (0.1-0.90); Monocytes Percent Manual 25 % (3-9); Neutrophils Absolute Manual 0.96 K/mm3 (1.7-7.2); Neutrophils Percent Manual 44 % (46-73); Platelet Estimate Adequate (Adequate); Total Cells Counted 100
== END 2024-07-13 10:17 | disposition home or self-care (01) ==
PROVIDERS: PCP Internal Medicine Hematology; Visit Provider Internal Medicine Hematology
DX: C91.10 Chronic lymphocytic leukemia of B-cell type not having achieved remission (principal)
CPT/HCPCS: 36415; 36591; 85025

== ENCOUNTER 2024-07-14 10:17 | Outpatient (CLI) | payer MEDICARE, BC, SELFPAY ==
[2024-07-14 10:24] VITALS: BMI 21.9
[2024-07-14 10:29] VITALS: BP 123/74; PULSE 78; RESP 14; TEMP 36.4; O2SAT 98
[2024-07-14] MEDS: FILGRASTIM-SNDZ 300 MCG/0.5 ML SYRINGE SUB-Q (10:37)
--- NOTE | 2024-07-14 10:42 | PC.NURSE ---
Patient here for #1 of 2 Zarxio injection for WBC 2.2 and ANC <1000 from yesterday's labs done here. Education given. No concerns voiced. Injection administered. SEE MAR/patient care notes. Tolerated well.
== END 2024-07-14 10:18 | disposition home or self-care (01) ==
PROVIDERS: PCP Internal Medicine Hematology; Visit Provider Internal Medicine Hematology
DX: C91.10 Chronic lymphocytic leukemia of B-cell type not having achieved remission (principal)
CPT/HCPCS: 96372; Q5101

== ENCOUNTER 2024-07-15 10:14 | Outpatient (CLI) | payer MEDICARE, BC, SELFPAY ==
[2024-07-15 10:47] VITALS: BP 109/65; PULSE 80; RESP 16; TEMP 36.3; O2SAT 98; BMI 21.9
--- NOTE | 2024-07-15 10:54 | PC.NURSE ---
Patient here for #2 of 2 Zarxio injection. Education given. No concerns voiced. Injection given. SEE MAR/patient care notes. Tolerated well.
[2024-07-15] MEDS: FILGRASTIM-SNDZ 300 MCG/0.5 ML SYRINGE SUB-Q (11:02)
== END 2024-07-15 10:15 | disposition home or self-care (01) ==
PROVIDERS: PCP Internal Medicine Hematology; Visit Provider Internal Medicine Hematology
DX: C91.10 Chronic lymphocytic leukemia of B-cell type not having achieved remission (principal)
CPT/HCPCS: 96372; Q5101

== ENCOUNTER 2024-07-26 10:25 | Outpatient (CLI) | payer MEDICARE, SELFPAY ==
[2024-07-26 10:54] VITALS: BP 110/71; PULSE 80; RESP 14; TEMP 36.4; O2SAT 98
[2024-07-26 10:54] LABS: Hematocrit 34.3 % (35.0-42.0); Hemoglobin 11.7 g/dL (11.7-13.8); Mean Corpuscular HGB Conc 34.1 g/dL (32-36); Mean Corpuscular Hemoglobin 32.1 pg (27.0-31.0); Mean Corpuscular Volume 94.2 fL (78.0-102.0); Mean Platelet Volume 9.5 fl (9.2-11.8); Platelet Count Result 148 K/mm3 (150-420); Red Blood Count 3.64 M/mm3 (4.20-5.40); Red Cell Distribution Width 14.2 % (11.6-14.4); White Blood Count 2.2 K/mm3 (4.8-10.8)
[2024-07-26 10:56] VITALS: BMI 21.9
[2024-07-26] MEDS: HEPARIN SODIUM LOCK FLUSH 500 UNITS/5 ML SYRINGE (10:57)
--- NOTE | 2024-07-26 10:58 | PC.NURSE ---
Patient here for port draw for labs. Patient has appt with Dr. Reyes tomorrow. Procedure explained. Port draw per protocol done. Patient tolerated well. SEE Patient care notes.
[2024-07-26 11:31] LABS: Band Neutrophils Percent 0 % (0-6); Lymphocytes Absolute Manual 0.61 K/mm3 (1.1-4.5); Lymphocytes Percent Manual 28 % (18-44); Monocytes Absolute Manual 0.15 K/mm3 (0.1-0.90); Monocytes Percent Manual 7 % (3-9); Neutrophils Absolute Manual 1.43 K/mm3 (1.7-7.2); Neutrophils Percent Manual 65 % (46-73); Platelet Estimate Adequate (Adequate); Total Cells Counted 100
== END 2024-07-26 10:26 | disposition home or self-care (01) ==
PROVIDERS: PCP Internal Medicine Hematology; Visit Provider Internal Medicine Hematology
DX: C91.10 Chronic lymphocytic leukemia of B-cell type not having achieved remission (principal)
CPT/HCPCS: 36415; 36591; 85025

== ENCOUNTER 2024-08-09 10:25 | Outpatient (CLI) | payer MEDICARE, BC, SELFPAY ==
[2024-08-09 10:30] VITALS: BP 123/74; PULSE 88; RESP 14; TEMP 36.6; O2SAT 97; BMI 21.2
[2024-08-09] MEDS: HEPARIN SODIUM LOCK FLUSH 500 UNITS/5 ML SYRINGE (10:40)
[2024-08-09 10:53] LABS: Hematocrit 32.6 % (35.0-42.0); Hemoglobin 11.1 g/dL (11.7-13.8); Mean Corpuscular Hemoglobin 31.8 pg (27.0-31.0); Mean Corpuscular Volume 93.4 fL (78.0-102.0); Mean Platelet Volume 9.7 fl (9.2-11.8); Platelet Count Result 146 K/mm3 (150-420); Red Blood Count 3.49 M/mm3 (4.20-5.40); Red Cell Distribution Width 13.7 % (11.6-14.4); White Blood Count 3.8 K/mm3 (4.8-10.8)
[2024-08-09 11:08] LABS: Band Neutrophils Percent 0 % (0-6); Basophils Percent Manual 0 % (0-1); Eosinophils Percent Manual 0 % (1-6); Lymphocytes Absolute Manual 0.76 K/mm3 (1.1-4.5); Lymphocytes Percent Manual 20 % (18-44); Monocytes Absolute Manual 0.26 K/mm3 (0.1-0.90); Monocytes Percent Manual 7 % (3-9); Neutrophils Absolute Manual 2.77 K/mm3 (1.7-7.2); Neutrophils Percent Manual 73 % (46-73); Total Cells Counted 100
[2024-08-09 11:19] LABS: Platelet Estimate Adequate (Adequate)
== END 2024-08-09 10:26 | disposition home or self-care (01) ==
LOC: CHSLAB 10:27 → CHSTREATRM 10:30
PROVIDERS: PCP Internal Medicine Hematology; Visit Provider Internal Medicine Hematology
DX: C91.10 Chronic lymphocytic leukemia of B-cell type not having achieved remission (principal)
CPT/HCPCS: 36415; 36591; 85025

== ENCOUNTER 2024-08-23 10:13 | Outpatient (CLI) | payer MEDICARE, SELFPAY ==
[2024-08-23 11:02] LABS: Hematocrit 34.7 % (35.0-42.0); Hemoglobin 11.6 g/dL (11.7-13.8); Mean Corpuscular HGB Conc 33.4 g/dL (32-36); Mean Corpuscular Hemoglobin 31.3 pg (27.0-31.0); Mean Corpuscular Volume 93.5 fL (78.0-102.0); Mean Platelet Volume 9.5 fl (9.2-11.8); Platelet Count Result 153 K/mm3 (150-420); Red Blood Count 3.71 M/mm3 (4.20-5.40); Red Cell Distribution Width 13.4 % (11.6-14.4)
[2024-08-23 11:24] LABS: Band Neutrophils Percent 0 % (0-6); Basophils Percent Manual 0 % (0-1); Eosinophils Percent Manual 0 % (1-6); Lymphocytes Percent Manual 20 % (18-44); Monocytes Absolute Manual 0.27 K/mm3 (0.1-0.90); Monocytes Percent Manual 9 % (3-9); Neutrophils Absolute Manual 2.13 K/mm3 (1.7-7.2); Neutrophils Percent Manual 71 % (46-73); Total Cells Counted 100
[2024-08-23 11:25] LABS: Platelet Estimate Adequate (Adequate)
== END 2024-08-23 10:14 | disposition home or self-care (01) ==
PROVIDERS: PCP Internal Medicine Hematology; Visit Provider Internal Medicine Hematology
DX: C91.10 Chronic lymphocytic leukemia of B-cell type not having achieved remission (principal)
CPT/HCPCS: 36415; 85025

== ENCOUNTER 2024-09-06 10:08 | Outpatient (CLI) | payer MEDICARE, BC, SELFPAY ==
[2024-09-06 10:51] LABS: Hematocrit 33.6 % (35.0-42.0); Hemoglobin 11.1 g/dL (11.7-13.8); Mean Corpuscular Hemoglobin 31.1 pg (27.0-31.0); Mean Corpuscular Volume 94.1 fL (78.0-102.0); Mean Platelet Volume 9.5 fl (9.2-11.8); Platelet Count Result 133 K/mm3 (150-420); Red Blood Count 3.57 M/mm3 (4.20-5.40); Red Cell Distribution Width 13.5 % (11.6-14.4); White Blood Count 2.3 K/mm3 (4.8-10.8)
[2024-09-06 10:56] VITALS: BMI 21.5
[2024-09-06] MEDS: HEPARIN SODIUM LOCK FLUSH 500 UNITS/5 ML SYRINGE (10:57)
[2024-09-06 11:18] LABS: Band Neutrophils Percent 0 % (0-6); Basophils Percent Manual 0 % (0-1); Eosinophils Percent Manual 0 % (1-6); Lymphocytes Absolute Manual 0.71 K/mm3 (1.1-4.5); Lymphocytes Percent Manual 31 % (18-44); Monocytes Absolute Manual 0.16 K/mm3 (0.1-0.90); Monocytes Percent Manual 7 % (3-9); Neutrophils Absolute Manual 1.42 K/mm3 (1.7-7.2); Neutrophils Percent Manual 62 % (46-73); Platelet Estimate Adequate (Adequate); Total Cells Counted 100
== END 2024-09-06 10:09 | disposition home or self-care (01) ==
PROVIDERS: PCP Internal Medicine Hematology; Visit Provider Internal Medicine Hematology
DX: C91.10 Chronic lymphocytic leukemia of B-cell type not having achieved remission (principal)
CPT/HCPCS: 36415; 36591; 85025

== ENCOUNTER 2024-10-11 10:29 | Outpatient (CLI) | payer MEDICARE, BC, SELFPAY ==
--- OUTSIDE RECORDS SUMMARY | 2024-10-11 10:49 | XMS_ITS ---
Author Organization Unknown Address [address] [place], [place] [id number] Phone Care Team Providers Care Medicare Insurance Specialist Name Role Phone ROSMERY ORTA Shelia Attending Unavailable Immunization Immunization Date Status Additional Notes Code Code System DT (pediatric) 12/10/2004 Completed 28 CVX Pneumococcal conjugate PCV 13 12/17/2020 Completed 133 CVX Influenza, split virus, quadrivalent, preservative 07/01/2021 Completed 158 C VX Influenza, split virus, quadrivalent, preservative 05/26/2022 Completed 158 C VX Influenza, split virus, quadrivalent, preservative 06/08/2023 Completed 158 C VX zoster recombinant 03/31/2019 Completed 187 CVX zoster recombinant 08/02/2019 Completed 187 CVX Results BONE DENSITY STUDY DEXA HIP OR SPINE - Completed: 05/13/2024 15:27 LOINC: EXAM DESCRIPTION: BONE DENSITY STUDY DEXA HIP OR SPINE REASON FOR STUDY: 68 y/o year old F with given 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 LEFT HIP: Total BMD is 0.798 g/cm2 T-score is -1.28 This is decreased in comparison to prior exam. Femoral neck BMD is 0.595 g/cm2 T-score is -3.35 FRAX: FRAX not reported due to T-scores of hip, femoral neck and/or spine being at or below -2.5 (Osteoporosis). IMPRESSION: ? ? Osteoporosis. REFERENCE: Bone mineral density: T-Score: Normal (T-score above or = -1.0) Low bone mass (T-score between -1.0 and -2.5) replaces the previously used term osteopenia Osteoporosis (T-score = or below -2.5) Z-Score: Within the expected range for age (Z-score above -2.0) Below the expected range for age (Z-score is -2.0 or below) Please see below follow up recommendations. Medical evaluation for secondary causes of low bone mineral density may be appropriate. FRAX is a World Health Organization validated fracture risk assessment tool that calculates a person's 10 year probability of a major osteoporosis related fracture and hip fracture. According to the National Osteoporosis Foundation guidelines, postmenopausal women and men age 50 or older with low bone mass and a 10 year probability of a major osteoporosis related fracture = or greater than 20% or a 10 year probability of a hip fracture = or greater than 3% should be considered for pharmacological treatment for the prevention of osteoporosis. For further information, including treatment recommendations, please refer to the 2019 ISCD Official Positions (http://www.iscd.org) and the NOF's Clinician's Guide to Prevention and Treatment of Osteoporosis (http://www.nof.org/professionals/clinical-guidelines) THIS IS AN ELECTRONICALLY VERIFIED FINAL REPORT 05/14/2024 8:45 AM - Electronically signed by Luciano Mai M.D. MF: [email or web address] Report ID: [id number] Reading Location: [place] [address] Social History Type Status Start Date End Date Code Code Syst em Smoking History Never smoker (Never Smoked) 788147188 SNOMED CT Sex Female Assessment You had the following problems:UNSPECIFIED ABNORMALITIES OF BREATHING Hospital Discharge Instructions Should you have any questions prior to discharge, please contact a member of your healthcare team. If you have left the hospital and have any questions, please contact your primary care physician. Reason For Referral No Data Found Problems Problem Start Date Resolved Date Status Code Code System UNSPECIFIED ABNORMALITIES OF BREATHING active 867523105 SNOMED-CT Allergies and Adverse Reactions Allergy Substance Reaction Severity Start Date Concern Status Code Code System ERYTHROMYCIN Rash (SNOMED-CT: 317708444) Active 4053 RxNorm METRONIDAZOLE Active 6922 RxNorm AMOXAPINE Active 722 RxNorm GEMFIBROZIL Active 4719 RxNorm PRAVASTATIN SODIUM Fever (SNOMED-CT: 662852167) Active 754490 RxNorm EPINEPHRINE HCL-SODIUM CHLORIDE HEART PALPITATIONS (SNOMED-CT: null) Active 3992 RxNorm Plan of Treatment CT Abdomen/Pelvis W Contrast (66829) CT Chest/Lung W Contrast (29039) 2022 CT Abdomen/Pelvis W Contrast (14156) CT Chest/Lung W Contrast (42906) 2022 Bone Density Dexa 05/13/2024 Digital [place] Screen Bilateral (84368) Encounters Encounter Diagnosis Start Date Code Code Sys tem Menopause present 05/13/2024 [id number] [employer] Personal Care Team Section Performer Name Performer Role Active Date Inactive Da te Imaging Narrative Notes
--- OUTSIDE RECORDS SUMMARY | 2024-10-11 10:49 | XMS_ITS | Clinical Summary ---
Author Organization [facility] Address [address] [place] [address] Care Team Providers Care Manager Applied Name Role Phone Kip Hanson MD Primary Care Provider [phone] Allergies Active Allergy Reactions Criticality Noted Date Comments Erythromycin Rash Low 06/30/2023 Epinephrine Palpitations Low 06/30/2023 Metronidazole Other (see comment) 06/30/2023 Patient unsure of reaction Statins Other (see comment) 06/30/2023 Flu like symptoms Medications atovaquone (MEPRON) 750 MG/5ML suspension Take 10 mLs (1,500 mg total) by mouth daily. 4 Active escitalopram (LEXAPRO) 20 MG tablet Take 1 tablet (20 mg total) by mouth daily. 4 Active lidocaine (LIDODERM) 5 % Place 1 patch onto the skin daily. 4 Active lidocaine-prilo mayte (EMLA) cream Apply topically as needed (1 hr before procedure). 4 Active loratadine (CLARITIN) 10 MG tablet Take 1 tablet (10 mg total) by mouth daily. 4 Active ondansetron (ZOFRAN) 8 MG tablet Take 1 tablet (8 mg total) by mouth every 8 (eight) hours as needed. 4 Active prednisoLONE acetate (PRED FORTE) 1 % ophthalmic suspension Place 1 drop into the right eye 3 (three) times daily. 4 Active valACYclovir (VALTREX) 500 MG tablet Take 1 tablet (500 mg total) by mouth 2 (two) times daily. 5 Active venetoclax (VENCLEXTA) 100 MG tablet Take 4 tablets by mouth daily. Active omeprazole (PRILOSEC) 40 MG capsule Take 1 capsule (40 mg total) by mouth daily. Active mesalamine EC (LIALDA) 1.2 g Tab EC tablet Take 1 tablet (1.2 g total) by mouth daily. with food 10/04/19 Discontinu ed(Error) prochlorperazin e (COMPAZINE) 10 MG tablet Take 1 tablet (10 mg total) by mouth every 8 (eight) hours as needed. 10/04/19 Discontinu ed(Error) Encounters Date Type Department Care Team Description 10/04/2024 10:58 AM MOTOR RACER - 10/04/2024 11:59 PM MOTOR RACER Hospital Encounter [facility] [address] [place] [address] Avelino Morris MD Discharge Disposition: Home or Self Care (Routine Discharge) 10/04/2024 10:30 AM MOTOR RACER - 10/04/2024 10:57 AM MOTOR RACER Hospital Encounter [facility] [address] [place] [address] Bayron Perkins MD Discharge Disposition: Home or Self Care (Routine Discharge) 10/04/2024 Travel 09/21/2024 Telephone [facility] Interventional Radiology [address] [place] [address] Virgil Peña PA-C Appointment Request from Last 3 Months Social History Tobacco Use Types Packs/Day Years Used Date Smoking Tobacco: Never Smokeless Tobacco: Never Tobacco Cessation:Counseling Given: Not Answered Alcohol Use Standard Drinks/Week Comments Not Currently 0 (1 standard drink = 0.6 oz pur e alcohol) rarely Comments Unknown Sex and Gender Information Value Date Recorded Sex Assigned at Female 10/04/2024 10:54 AM MOTOR RACER Legal Sex Female 10:46 AM MOTOR RACER Gender Identity Not on file Sexual Orientation Not on file Last Filed Vital Signs Vital Sign Reading Time Taken Comments Blood Pressure 100/62 10/04/2024 1:30 PM MOTOR RACER Pulse 90 10/04/2024 1:30 PM MOTOR RACER Temperature 36.7 C (98.1 F) 06/30/2023 12:05 PM MOTOR RACER Respiratory Rate 16 10/04/2024 1:30 PM MOTOR RACER Oxygen Saturation 100% 10/04/2024 1:30 PM MOTOR RACER Inhaled Oxygen Concentration - - Weight 56.7 kg (125 lb) 10/04/2024 11:41 AM MOTOR RACER Height 162.6 cm (5' 4 ) 10/04/2024 11:41 AM MOTOR RACER Body Mass Index 21.46 10/04/2024 11:41 AM MOTOR RACER Plan of Treatment Upcoming Encounters Date Type Department Care Team (Late st Contact Info) Description 10/25/2024 9:00 AM MOTOR RACER Appointment [facility] [address] [place] [address] Avelino Morris MD [address] [place] [address] 10/25/2024 9:30 AM MOTOR RACER Appointment [facility] [address] [place] [address] Avelino Morris MD [facility] [address] [address] Health Maintenance Due Date Last Done Comments Colorectal Cancer Screening Colonoscopy (10 Years) 1955 COVID-19 Vaccine (#1) 1960 Hepatitis C 1973 Mammogram Screening 1995 DTaP, Tdap and Td Vaccines ( 1 - Tdap) 12/11/2004 12/10/2004 RSV Immunization or 60+ Years (1 - Risk 60-74 years 1-dose series) 2015 Annual Medicare Wellness Visit 2020 Dexa Scan (General) 2020 Pneumococcal Vaccine: 65+ Years (2 of 2 - PPSV23 or PCV20) 02/11/2021 12/17/2020 Influenza Adult (#1) 2024 06/08/2023, 05/26/2022, 07/01/2021 Zoster Vaccines Completed 08/02/2019, 03/31/2019 Meningococcal B Vaccine Aged Out No l onger eligible based on patient's age to complete this topic Meningococcal Vaccine Aged Out No girma chiquis eligible based on patient's age to complete this topic RSV Immunizations Under 20 Months Aged Out No longer eligible b ased on patient's age to complete this topic Procedures Procedure Name Priority Date/Time Associated Diagnosis Comments CT GD ASPIR+BX BONE MARROW Routine 10/04/2024 12:38 PM MOTOR RACER CLL (chronic lymphocytic leukemia) ([facility]CC) FLOW CYTOMETRY Routine 10/04/2024 12:31 PM MOTOR RACER CBC W/DIFF AUTOMATED Routine 10/04/2024 11:31 AM MOTOR RACER Leukemia, lymphocytic, chronic ([facility]/HCC) PROTHROMBIN TIME, VENOUS Routine 10/04/2024 11:31 AM MOTOR RACER Leukemia, lymphocytic, chronic ([facility]/HCC) PATHOLOGY Routine 10/04/2024 12:00 AM MOTOR RACER from Last 3 Months Results * CT GD ASPIR+BX BONE MARROW (10/04/2024 12:38 PM MOTOR RACER) Anatomical Region Laterality Modality Bone Computed Tomogra phy, Radiographic Imaging 10/05/2024 9:42 AM MOTOR RACER Impressions 10/05/2024 5:28 PM MOTOR RACER IMPRESSION: CT-guided percutaneous bone marrow biopsy, as described. Plan: - Advance diet as tolerated. - Bedrest x 1 hour. - Vitals x 4 every 15 minutes. - Check puncture area with vitals. - Patient may be discharged when all aforementioned criteria has been meant. The attending radiologist, Dr. Michael, was in the department for all critical portions of the procedure, has reviewed the images, and agrees with the content of this report. Dictated By: CHACORTA Mtz on 10/05/2024 9:42 AM Ordered By: AVELINO MORRIS Interpreted By: CHACORTA Mtz, 10/05/2024 9:42 AM Narrative 10/05/2024 5:28 PM MOTOR RACER [address] [address] PROCEDURE: CT-guided bone marrow aspiration and biopsy DATE OF PROCEDURE: 10/04/2024 11:57 AM INDICATION: 9-year-old female with Chronic lymphocytic leukemia Primary provider: Virgil Peña PA-C Supervising provider: Parish Michael M.D. Conscious sedation: Administered and monitored by a qualified interventional radiology nurse under supervision of the interventional physician roofer assistant. There was continuous monitoring of vital signs including pulse oximetry, end-tidal CO2, and EKG. Total intraservice or fayo-ho-eowz sedation time: 4 minutes. TECHNIQUE AND FINDINGS: Informed written consent was obtained. The patient was then brought to the CT scanner suite, placed in the prone position, and [place] protocol was observed to verify correct patient, site, and procedure to be performed Preliminary CT scan was then performed demonstrating normal bone mineralization. A safe path of approach to the right posterior iliac crest was selected. The procedure was performed following all elements of maximal sterile barrier technique. The field was prepped in a sterile fashion and a large sterile field was used to protect the area of interest. All operators had a hand scrub for cutaneous antisepsis. All operators used sterile gown and gloves and wore a hat and a mask during the procedure. Subsequently, after administration of local anesthesia using buffered 1% lidocaine, a 22 gauge needle was advanced to the periosteum and 0.5% Marcaine was administered for longer acting periosteal anesthesia. An introducer needle was advanced to the posterior medial cortex under intermittent CT visualization. The needle was then connected to an Ybrain motorized device to penetrate the cortex. At this point, the stylette was removed and serial aspiration of a total of 10 mL of marrow was obtained. Following this, again using the motorized device, a roughly 2 cm marrow core sample was obtained. The needle was removed and a sterile dressing was applied. Followup CT imaging demonstrated no evidence of hematoma or other complication. The patient tolerated the procedure well without any complication and was transferred to recovery area in stable condition. A dose lowering technique was used for this procedure, which may include, but is not limited to, dose reduction techniques, automated exposure control, the use of a iterative reconstruction, and ALARA (as low as reasonably achievable)/image gently techniques. EBL: Minimal Procedure Note Parish Michael MD - 10/05/[address] [address] PROCEDURE: CT-guided bone marrow aspiration and biopsy DATE OF PROCEDURE: 10/04/2024 11:57 AM INDICATION: 9-year-old female with Chronic lymphocytic leukemia Primary provider: Virgil Peña PA-C Supervising provider: Parish Michael M.D. Conscious sedation: Administered and monitored by a qualifiedinterventional radiology nurse under supervision of the interventionalphysician roofer assistant. There was continuous monitoring of vital signsincluding pulse oximetry, end-tidal CO2, and EKG. Total intraservice qioifw-jr-adns sedation time: 4 minutes. TECHNIQUE AND FINDINGS: Informed written consent was obtained. The patient was then brought to theCT scanner suite, placed in the prone position, and [place] protocol wasobserved to verify correct patient, site, and procedure to be performedPreliminary CT scan was then performed demonstrating normal bonemineralization. A safe path of approach to the right posterior iliaccrest was selected. The procedure was performed following all elements of maximal sterilebarrier technique. The field was prepped in a sterile fashion and a largesterile field was used to protect the area of interest. All operators hada hand scrub for cutaneous antisepsis. All operators used sterile gown andgloves and wore a hat and a mask during the procedure. Subsequently, after administration of local anesthesia using buffered 1%lidocaine, a 22 gauge needle was advanced to the periosteum and 0.5%Marcaine was administered for longer acting periosteal anesthesia. Anintroducer needle was advanced to the posterior medial cortex underintermittent CT visualization. The needle was then connected to anOnControl motorized device to penetrate the cortex. At this point, thestylette was removed and serial aspiration of a total of 10 mL of marrowwas obtained. Following this, again using the motorized device, a roughly2 cm marrow core sample was obtained. The needle was removed and a steriledressing was applied. Followup CT imaging demonstrated no evidence ofhematoma or other complication. The patient tolerated the procedure wellwithout any complication and was transferred to recovery area in stablecondition. A dose lowering technique was used for this procedure, which may include,but is not limited to, dose reduction techniques, automated exposurecontrol, the use of a iterative reconstruction, and ALARA (as low asreasonably achievable)/image gently techniques. EBL: Minimal IMPRESSION: CT-guided percutaneous bone marrow biopsy, as described. Plan: - Advance diet as tolerated. - Bedrest x 1 hour. - Vitals x 4 every 15 minutes. - Check puncture area with vitals. - Patient may be discharged when all aforementioned criteria has beenmeant. The attending radiologist, Dr. Michael, was in the department for allcritical portions of the procedure, has reviewed the images, and agreeswith the content of this report. Dictated By: CHACORTA Mtz on 10/05/2024 9:42 AM Ordered By: AVELINO MORRIS Interpreted By: CHACORTA Mtz, 10/05/2024 9:42 AM Avelino Morris MD CT Final Result * Flow Cytometry (10/04/2024 12:31 PM MOTOR RACER) FLOW CYTOMETRY RESULTS [facility] Department of Laboratory Medicine [address] [place] [phone] , extension [phone] Pathology Report Flow Cytometry Report Name: THANIA SHABAZZ Specimen #: [id number] Age: 2 1955 (Age: 69) Location: [facility] Sex: F Procedure Date: 10/04/2024 Hospital #: [id number] Date Received: 10/04/2024 Date Reported: 10/07/2024 Provider: AVELINO MORRIS MD Source: Bone marrow aspiration (See report [id number]) FINAL DIAGNOSIS: Bone marrow, aspirate, flow cytometric analysis: -No evidence of leukemia or non-Hodgkin lymphoma. Result: Flow cytometric analysis is performed on the bone marrow aspirate specimen with a cellular viability of approximately 97%. The analyzed gate of interest is comprised predominantly of mature T cells which express CD3, CD5, and CD7 with a CD4:8 ratio of 3.7:1. The analyzed gate contains insufficient B cells for enumeration or phenotypic evaluation. There is no increased blast population identified. The analyzed gate contains a small population of monocytes and maturing myeloid cells. No other flow cytometric abnormalities are seen. Tested: CD45, CD19, CD20, Surface [place], Surface Lambda, CD5, CD10, CD38, CD34, CD14, CD117, CD4, CD8, CD3, CD7, CD56, CD13, CD33, CD64, CD11b, HLA-DR, CD23, CD200 Electronically Signed Out BELLA PEPPER MD This test was developed and its performance characteristics determined by [facility]. It has not been cleared or approved by the U.S. Food and Drug Administration. However, the use of Analyte Specific Reagents does not require FDA approval. [facility] 10/04/2024 12:3 1 PM MOTOR RACER 10/04/2024 12:50 PM MOTOR RACER Comment:Bone marrow aspirati on (See report [id number]) Avelino Morris MD PATHOLOGY/CYTOLOGY OR DERABLES Final Result Performing Organization Address City/[facility]/ZIP Co de Phone Number [facility] [address] [place] [address], [phone] * (ABNORMAL) PROTIME/INR, VENOUS (PROTHROMBIN TIME) (10/04/2024 11:31 AM MOTOR RACER) [facility] PROTIME 12.7(H) 9.4 - 12.5 SEC 10/04/2024 11:53 AM MOTOR RACER [facility] INR 1.1 0.8 - 1.1 10/04/2024 11:53 AM MOTOR RACER [facility] 10/04/2024 11:3 1 AM MOTOR RACER Bayron Perkins MD LABORATORY Final Result Performing Organization Address City/[facility] Co de Phone Number [facility] [address] [place] [address], [phone] * (ABNORMAL) CBC W/DIFF AUTOMATED (10/04/2024 11:31 AM MOTOR RACER) [facility] WBC 3.15(L) 4.00 - 10.80 x10'3/uL 10/04/2024 11:39 AM [facility] RBC 3.88(L) 4.10 - 5.40 x10'6/uL 10/04/2024 11:39 AM [facility] HGB 12.5 12.0 - 16.0 G/DL 10/04/2024 11:39 AM [facility] HCT 37.9 36.0 - 47.0 % 10/04/2024 11:39 AM [facility] MCV 97.7 78.0 - 100.0 FL 10/04/2024 11:39 AM [facility] MCH 32.2(H) 27.0 - 31.0 PG 10/04/2024 11:39 AM [facility] MCHC 33.0 33.0 - 36.0 G/DL 10/04/2024 11:39 AM [facility] RDW 14.4 11.5 - 14.5 % 10/04/2024 11:39 AM [facility] PLT 145(L) 150 - 350 x10'3/uL 10/04/2024 11:39 AM [facility] MPV 9.3 7.4 - 10.4 FL 10/04/2024 11:39 AM [facility] DIFFERENTIAL TYPE AUTOMATED DIFFERENTIAL 10/04/2024 11:39 AM [facility] SEG NEUTROPHILS 65.8 % 11:39 AM [facility] LYMPHOCYTES 19.0 % 10/04/2024 11:39 AM [facility] MONOCYTES 14.9 % 10/04/2024 11:39 AM [facility] EOSINOPHILS 0.0 % 10/04/2024 11:39 AM [facility] BASOPHILS 0.0 % 10/04/2024 11:39 AM [facility] IMMATURE GRANS % 0.3 % 10/04/19 25 11:39 AM MOTOR RACER [facility] ABS. NEUTROPHILS 2.07 1.60 - 8.30 x10'3/uL 10/04/2024 11:39 AM MOTOR RACER [facility] ABS. LYMPHOCYTES 0.60(L) 0.80 - 4.70 x10'3/uL 10/04/2024 11:39 AM MOTOR RACER [facility] ABS. MONOCYTES 0.47 0.00 - 1.50 x10'3/uL 10/04/2024 11:39 AM MOTOR RACER [facility] ABS. EOSINOPHILS 0.00 0.00 - 0.40 x10'3/uL 10/04/2024 11:39 AM MOTOR RACER [facility] ABS. BASOPHILS 0.00 0.00 - 0.20 x10'3/uL 10/04/2024 11:39 AM MOTOR RACER [facility] ABS. IMMATURE GRANULOCYTES 0.01 0.00 - 0.03 x10'3/uL 10/04/2024 11:39 AM [facility] ABS. NUCLEATED RBC'S 0.00 0.00 - 0.01 x10'3/uL 10/04/2024 11:39 AM [facility] NRBC % 0.0 % 10/04/2024 11:39 AM [facility] 10/04/2024 11:3 1 AM MOTOR RACER us Bayron Perkins MD LABORATORY Final Result [facility] [address] [place] [phone], [phone] * Pathology (10/04/2024 12:00 AM MOTOR RACER) PATHOLOGY [facility] Department of Laboratory Medicine [address] [place] [address] , extension [phone] Pathology Report Bone Marrow Report Name: THANIA SHABAZZ Specimen #: [id number] Age: 2 1955 (Age: 69) Location: [facility] Sex: F Procedure Date: 10/04/2024 Hospital #: [id number] Date Received: 10/04/2024 Date Reported: 10/07/2024 Provider: AVELINO MORRIS MD Source: A: Bone marrow, right iliac aspiration B: Bone marrow, right iliac biopsy Clinical History: CLL FINAL DIAGNOSIS: Peripheral blood, smear review: -Leukopenia with absolute lymphocytopenia. -Thrombocytopenia. A&B. Bone marrow, right iliac crest, aspiration and biopsy: -Normocellular marrow with trilineage hematopoiesis. -Decreased storage iron. -No evidence of marrow involvement by chronic lymphocytic leukemia/small lymphocytic lymphoma. Gross Description: A. Received in B-plus fixative, labeled with a patient label and as BM HOLA , is a 3.5 x 2.0 x 0 point centimeter portion of red-brown clot material. The specimen is entirely submitted in cassette A1. B. Received in B-plus fixative, labeled with a patient label and as BX HOLA is a needle core biopsy of white-martinez bony tissue that is 1.9 cm in greatest dimension. The specimen is entirely submitted in cassette B1 following decalcification in Immunodecal. Gross examination (when applicable), interpretation, and sign out were performed at [facility], [address] [place] [address]. All immunohistochemical and histochemical tests were developed by and performed at [facility], [address] [place] [address]. All tests reported here have not been cleared or approved by the U.S. Food and Drug Administration (FDA). This laboratory is regulated under CLIA as qualified to perform high-complexity testing. These tests are used for clinical purposes. They should not be regarded as investigational or for research. Positive and negative controls show appropriate reactivity. Electronically Signed Out BELLA PEPPER MD INTERPRETATION: Peripheral Blood Comments: RED BLOOD CELLS: The hemoglobin is within normal limits. The red blood cells are generally normocytic and normochromic. There is no significant anisopoikilocytosis. No other red blood cell abnormalities are seen. WHITE BLOOD CELLS: The white blood cell count is mildly decreased (3.15 k/cumm). Neutrophils are quantitatively normal with normal segmentation and normal granularity. There is no significant left shifted maturation. Lymphocytes are decreased in number within normal appearance. Monocytes are normal in number and morphology. Eosinophils and basophils are not increased. PLATELETS: The platelet count is mildly decreased (145 k/cumm). The platelets are morphologically normal. BONE MARROW ASPIRATE: The bone marrow aspirate is cellular with a normal-appearing M:E ratio. Erythroid precursors are quantitatively normal with normoblastic maturation. Granulocytic precursors are quantitatively normal with no left shifted maturation and no abnormal forms seen. Megakaryocytes are normal in number and morphology. Lymphocytes and plasma cells are quantitatively and morphologically normal. Iron stain performed on the bone marrow aspirate shows decreased iron distributed in macrophages. Rare sideroblasts are present. Ring sideroblasts are not seen. BONE MARROW BIOPSY: The decalcified biopsy sections and clot sections are normocellular for age (overall cellularity approximately 20%-30%). Erythroid precursors are quantitatively normal. Granulocytic precursors are quantitatively normal with normal maturation. Megakaryocytes are normal in number with no clusters and no atypical forms seen. Lymphocytes are mildly increased with benign lymphoid aggregates present. Plasma cells are normal in number. Bony trabeculae are normal. There is no fibrosis seen. Granulomas are absent. SPECIAL PROCEDURES: Flow Cytometry: Flow cytometric analysis ([id number]) reveals no abnormal cell population. Please see flow cytometry report for details. Immunohistochemistry: Immunohistochemical stains for CD3, CD5, CD20, CD23, CD43, LEF1, and kappa and lambda immunoglobulin light chains performed on the clot section highlight benign lymphoid aggregates comprised of mature T cells with no diagnostic evidence of involvement by chronic lymphocytic leukemia/small lymphocytic lymphoma. [facility] 10/04/2024 10/04/2024 1:1 2 PM MOTOR RACER Comment:Bone marrow, right i liac aspiration&Bone marrow, right iliac biopsy Avelino Morris MD PATHOLOGY/CYTOLOGY OR DERABLES Final Result [facility] [address] [place] [address], [phone] from Last 3 Months Insurance MEDICARE [facility] Care Teams Manager Applied Relationship Specialty Start Date End Date Kip Hanson MD PCP - General FAMILY PRACTICE 10/24/20
--- OUTSIDE RECORDS SUMMARY | 2024-10-11 10:49 | XMS_ITS ---
Author Organization Unknown Address [address] [place], [place] [id number] Phone Care Team Providers Care Deckhand Maintenance Name Role Phone ROSMERY Bass Attending Unavailable Immunization Immunization Date Status Additional [...] zoster recombinant 08/02/2019 Completed 187 CVX Results DIG 3D MEDINA SCREENING BILATER AL - Completed: 05/09/2024 13:33 LOINC: See Scanned Image Attachment for Report Dictated By: Trans Initials: XX Trans Date: 05/12/24 12:37 <<REPDIST>> Social History Type Status Start Date End Date Code Code Syst em Smoking History Never smoker (Never Smoked) 496946878 SNOMED CT Sex Female Assessment You had [...] Code System UNSPECIFIED ABNORMALITIES OF BREATHING active 724522625 SNOMED-CT Allergies and Adverse Reactions Allergy Substance Reaction Severity Start Date Concern Status Code Code System ERYTHROMYCIN Rash (SNOMED-CT: 506400728) Active 4053 RxNorm METRONIDAZOLE Active 6922 RxNorm AMOXAPINE Active 722 RxNorm GEMFIBROZIL Active 4719 RxNorm PRAVASTATIN SODIUM Fever (SNOMED-CT: 333392293) Active 559047 RxNorm EPINEPHRINE HCL-SODIUM CHLORIDE HEART PALPITATIONS (SNOMED-CT: null) Active 3992 RxNorm Plan of Treatment CT Abdomen/Pelvis W Contrast (73651) CT Chest/Lung W Contrast (37021) 2022 CT Abdomen/Pelvis W Contrast (54594) CT Chest/Lung W Contrast (99829) 2022 Bone Density Dexa 05/13/2024 Digital [place] Screen Bilateral (95313) Encounters Encounter Diagnosis Start Date Code Code Sys tem Screening mammography 05/09/2024 41374259 SNOMED -CT Personal Care Team Section Performer Name Performer Role Active Date Inactive Da te Imaging Narrative Notes [facility] 05/12/2024 12:[address] [address] RADIOLOGY REPORT Patient Number: [id number] Patient Name: HARIKA SALAZAR Type: O/P MR Number: [id number] : 1955 Age: 68 Sex: F Room #: Admit Date: 05/09/24 Discharge Date 05/09/24 Ordering Physician: ROSMERY Bass Family Physician: ROSMERY Cazares Physician: X-Ray Number : [id number] DIG 3D MEDINA SCREENING BILATERA [id number] COMPLETE:05/09/24 13:33 [id number] (REASONS-DIG 3D MEDINA SCREENING BILATERAL: screening See Scanned Image Attachment for Report Dictated By: Trans Initials: XX Trans Date: 05/12/24 12:37 <<REPDIST>>
[2024-10-11 11:19] LABS: Hematocrit 37.2 % (35.0-42.0); Hemoglobin 11.9 g/dL (11.7-13.8); Mean Corpuscular Hemoglobin 31.1 pg (27.0-31.0); Mean Corpuscular Volume 97.1 fL (78.0-102.0); Mean Platelet Volume 9.9 fl (9.2-11.8); Platelet Count Result 142 K/mm3 (150-420); Red Blood Count 3.83 M/mm3 (4.20-5.40); White Blood Count 3.8 K/mm3 (4.8-10.8)
[2024-10-11 11:47] LABS: Band Neutrophils Percent 0 % (0-6); Basophils Percent Manual 0 % (0-1); Eosinophils Percent Manual 0 % (1-6); Lymphocytes Absolute Manual 0.19 K/mm3 (1.1-4.5); Lymphocytes Percent Manual 5 % (18-44); Monocytes Absolute Manual 0.49 K/mm3 (0.1-0.90); Monocytes Percent Manual 13 % (3-9); Neutrophils Absolute Manual 2.35 K/mm3 (1.7-7.2); Neutrophils Percent Manual 62 % (46-73); Platelet Estimate Adequate (Adequate); Total Cells Counted 100
== END 2024-10-11 10:30 | disposition home or self-care (01) ==
PROVIDERS: PCP Internal Medicine Hematology; Visit Provider Internal Medicine Hematology
DX: C91.10 Chronic lymphocytic leukemia of B-cell type not having achieved remission (principal)
CPT/HCPCS: 85025

== ENCOUNTER 2024-11-08 10:20 | Outpatient (CLI) | payer MEDICARE, BC, SELFPAY ==
[2024-11-08 10:43] VITALS: BP 117/71; PULSE 84; RESP 14; TEMP 36.6; O2SAT 99; BMI 21.2
[2024-11-08] MEDS: HEPARIN SODIUM LOCK FLUSH 500 UNITS/5 ML SYRINGE IV PUSH (10:51)
--- NOTE | 2024-11-08 10:51 | PC.NURSE ---
Tolerated monthly port flush well. See MAR/patient care notes.
--- OUTSIDE RECORDS SUMMARY | 2024-11-08 11:47 | XMS_ITS ---
Author Organization Unknown Address [address] [place], [place] [phone] Phone Care Team Providers Care Recapper Name Role Phone ROSMERY Bass Attending Unavailable [...] em Smoking History Never smoker (Never Smoked) 673816145 SNOMED CT Sex Female Assessment You had [...] Code System UNSPECIFIED ABNORMALITIES OF BREATHING active 411258381 SNOMED-CT Allergies and Adverse Reactions Allergy Substance Reaction Severity Start Date Concern Status Code Code System ERYTHROMYCIN Rash (SNOMED-CT: 121453025) Active 4053 RxNorm METRONIDAZOLE Active 6922 RxNorm AMOXAPINE Active 722 RxNorm GEMFIBROZIL Active 4719 RxNorm PRAVASTATIN SODIUM Fever (SNOMED-CT: 725942443) Active 175763 RxNorm EPINEPHRINE HCL-SODIUM CHLORIDE HEART PALPITATIONS (SNOMED-CT: null) Active 3992 RxNorm Plan of Treatment CT Abdomen/Pelvis W Contrast (14795) CT Chest/Lung W Contrast (84919) 2022 CT Abdomen/Pelvis W Contrast (29353) CT Chest/Lung W Contrast (89427) 2022 Bone Density Dexa 05/13/2024 Digital [place] Screen Bilateral (16209) Encounters Encounter Diagnosis Start Date Code Code Sys tem Screening mammography 05/09/2024 46510913 SNOMED -CT Personal Care Team Section Performer Name Performer Role Active Date Inactive Da te Imaging Narrative Notes [facility] 05/12/2024 12:[address] [address] RADIOLOGY REPORT Patient Number: [id number] Patient Name: HARIKA SALAZAR Type: O/P MR Number: [id number] : 1955 Age: 68 Sex: F Room #: Admit Date: 05/09/24 Discharge Date 05/09/24 Ordering Physician: ROSMERY Bass Family Physician: ROSMERY Cazares Physician: X-Ray Number : [id number] DIG 3D MEDINA SCREENING BILATERA 54947 COMPLETE:05/09/24 13:33 35944 (REASONS-DIG 3D MEDINA SCREENING BILATERAL: screening See Scanned Image Attachment for Report Dictated By: Trans Initials: XX Trans Date: 05/12/24 12:37 <<REPDIST>>
--- OUTSIDE RECORDS SUMMARY | 2024-11-08 11:47 | XMS_ITS ---
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 MF: ELISABET Report ID: [id number] Reading Location: [place] [address] Social History Type Status Start Date End Date Code Code Syst em Smoking History Never smoker (Never Smoked) 460973293 SNOMED CT Sex Female Assessment You had [...] Code System UNSPECIFIED ABNORMALITIES OF BREATHING active 235863453 SNOMED-CT Allergies and Adverse Reactions Allergy Substance Reaction Severity Start Date Concern Status Code Code System ERYTHROMYCIN Rash (SNOMED-CT: 813588083) Active 4053 RxNorm METRONIDAZOLE Active 6922 RxNorm AMOXAPINE Active 722 RxNorm GEMFIBROZIL Active 4719 RxNorm PRAVASTATIN SODIUM Fever (SNOMED-CT: 941251167) Active 841483 RxNorm EPINEPHRINE HCL-SODIUM CHLORIDE HEART PALPITATIONS (SNOMED-CT: null) Active 3992 RxNorm Plan of Treatment CT Abdomen/Pelvis W Contrast (38409) CT Chest/Lung W Contrast (61345) 2022 CT Abdomen/Pelvis W Contrast (57324) CT Chest/Lung W Contrast (39279) 2022 Bone Density Dexa 05/13/2024 Digital [place] Screen Bilateral (46459) Encounters Encounter Diagnosis Start Date Code Code Sys tem Menopause present 05/13/2024 [id number] boosk-CT Personal Care Team Section Performer Name Performer Role Active Date Inactive Da te Imaging Narrative Notes
--- OUTSIDE RECORDS SUMMARY | 2024-11-08 11:48 | XMS_ITS | Clinical Summary ---
Author Organization [facility] Address [address] [place] [address] Care Team Providers Care Erp Pm Name Role Phone Kip Hanson MD Primary Care Provider [phone] Allergies Active Allergy Reactions Criticality Noted Date [...] (40 mg total) by mouth daily. Active Encounters Date Type Department Care Team Description 10/25/2024 9:00 AM MECHANICAL SYSTEM TECHNICIAN - 10/25/2024 11:59 PM MECHANICAL SYSTEM TECHNICIAN Hospital Encounter [facility] [address] [place] [address] Avelino Morris MD Discharge Disposition: Home or Self Care (Routine Discharge) 10/25/2024 Travel 10/04/2024 10:58 AM MECHANICAL SYSTEM TECHNICIAN - 10/04/2024 11:59 PM MECHANICAL SYSTEM TECHNICIAN Hospital Encounter [facility] [address] [place] [address] Avelino Morris MD Discharge Disposition: Home or Self Care (Routine Discharge) 10/04/2024 10:30 AM MECHANICAL SYSTEM TECHNICIAN - 10/04/2024 10:57 AM MECHANICAL SYSTEM TECHNICIAN Hospital Encounter [facility] Laboratory [address] [place] [address] Bayron Perkins MD Discharge Disposition: Home or Self Care (Routine Discharge) 10/04/2024 Travel 09/21/2024 Telephone [facility] Interventional Radiology [address] [place] [address] Virgil Peña PA-C Appointment Request from Last 3 Months Social History Tobacco Use Types Packs/Day Years Used Date Smoking Tobacco: Never Smokeless Tobacco: Never Tobacco Cessation:Counseling Given: Not Answered Alcohol Use Standard Drinks/Week Comments Not Currently 0 (1 standard drink = 0.6 oz pur e alcohol) rarely Comments Unknown Sex and Gender Information Value Date Recorded Sex Assigned at Female 10/04/2024 10:54 AM MECHANICAL SYSTEM TECHNICIAN Legal Sex Female 10:46 AM MECHANICAL SYSTEM TECHNICIAN Gender Identity Not on file Sexual Orientation Not on file Last Filed Vital Signs Vital Sign Reading Time Taken Comments Blood Pressure 100/62 10/04/2024 1:30 PM MECHANICAL SYSTEM TECHNICIAN Pulse 90 10/04/2024 1:30 PM MECHANICAL SYSTEM TECHNICIAN Temperature 36.7 C (98.1 F) 06/30/2023 12:05 PM MECHANICAL SYSTEM TECHNICIAN Respiratory Rate 16 10/04/2024 1:30 PM MECHANICAL SYSTEM TECHNICIAN Oxygen Saturation 100% 10/04/2024 1:30 PM MECHANICAL SYSTEM TECHNICIAN Inhaled Oxygen Concentration - - Weight 56.7 kg (125 lb) 10/04/2024 11:41 AM MECHANICAL SYSTEM TECHNICIAN Height 162.6 cm (5' 4 ) 10/04/2024 11:41 AM MECHANICAL SYSTEM TECHNICIAN Body Mass Index 21.46 10/04/2024 11:41 AM MECHANICAL SYSTEM TECHNICIAN Plan of Treatment Health Maintenance Due Date Last Done Comments [...] Name Priority Date/Time Associated Diagnosis Comments CT SOFT TISSUE NECK W CON Routine 10/25/2024 9:35 AM MECHANICAL SYSTEM TECHNICIAN CLL (chronic lymphocytic leukemia) ([facility]) CT CHEST+ABD+PEL W CON Routine 10/25/2024 9:34 AM MECHANICAL SYSTEM TECHNICIAN CLL (chronic lymphocytic leukemia) ([facility]) CT GD ASPIR+BX BONE MARROW Routine 10/04/2024 12:38 PM MECHANICAL SYSTEM TECHNICIAN CLL (chronic lymphocytic leukemia) ([facility]) FLOW CYTOMETRY Routine 10/04/2024 12:31 PM MECHANICAL SYSTEM TECHNICIAN CBC W/DIFF AUTOMATED Routine 10/04/2024 11:31 AM MECHANICAL SYSTEM TECHNICIAN Leukemia, lymphocytic, chronic (CMS/HCC HHS/HCC) PROTHROMBIN TIME, VENOUS Routine 10/04/2024 11:31 AM MECHANICAL SYSTEM TECHNICIAN Leukemia, lymphocytic, chronic (CMS/HCC HHS/HCC) PATHOLOGY Routine 10/04/2024 12:00 AM MECHANICAL SYSTEM TECHNICIAN from Last 3 Months Results * CT SOFT TISSUE NECK W CON (10/25/2024 9:35 AM MECHANICAL SYSTEM TECHNICIAN) Anatomical Region Laterality Modality Neck Computed Tomogra phy 10/26/2024 2:51 PM MECHANICAL SYSTEM TECHNICIAN Impressions 10/26/2024 2:55 PM MECHANICAL SYSTEM TECHNICIAN IMPRESSION: 1. No pathologically enlarged or necrotic cervical lymph nodes. No discrete enhancing neck mass, fluid collection or acute inflammatory changes. 2. Aortic and coronary artery calcification. 3. Moderate multilevel degenerative changes of the cervical spine Referred By: AVELINO MORRIS Interpreted By: Ramone Grubbs MD, 10/26/2024 2:51 PM Narrative 10/26/2024 2:55 PM MECHANICAL SYSTEM TECHNICIAN [address] [place] [address] EXAMINATION:Neck [address] with contrast 10/25/2024 INDICATION: Chronic lymphocytic leukemia TECHNIQUE: Axial CT images of the neck were acquired following demonstration of 95 mL Isovue-370 contrast intravenously. Sagittal and coronal reformats were constructed. Radiation dose reduction techniques were used. COMPARISON: None FINDINGS:Partially visualized intracranial contents are unremarkable. Visualized orbits and globes are unremarkable. The paranasal sinuses and mastoid air cells are clear. No acute osseous abnormality. Moderate degenerative changes are noted throughout the cervical spine. No focal lytic or blastic lesion. The parotid and submandibular glands are unremarkable. There is 3 mm hypodense lesion within the right lobe of the thyroid gland The oral cavity and tongue are unremarkable. The nasopharynx oropharynx and hypopharynx are unremarkable. No prevertebral edema or retropharyngeal fluid collection. The vallecula epiglottis performed sinuses are unremarkable. The larynx, upper trachea and upper esophagus are unremarkable The carotid and vertebral arteries are opacified.. The internal jugular veins are opacified. Central venous port is noted in the anterior upper right chest wall tracking into the SVC. Calcification noted within the aortic arch and coronary arteries. No pathologically enlarged or necrotic cervical lymph nodes. No discrete enhancing neck mass, fluid collection or acute inflammatory changes. No acute abnormality within the visualized lung apices. Procedure Note Ramone Grubbs MD - 10/26/2024 [facility] [address] [place] [address] EXAMINATION:Neck CT with contrast 10/25/2024 INDICATION: Chronic lymphocytic leukemia TECHNIQUE: Axial CT images of the neck were acquired followingdemonstration of 95 mL Isovue-370 contrast intravenously. Sagittal andcoronal reformats were constructed. Radiation dose reduction techniqueswere used. COMPARISON: None FINDINGS:Partially visualized intracranial contents are unremarkable.Visualized orbits and globes are unremarkable. The paranasal sinuses andmastoid air cells are clear. No acute osseous abnormality. Moderatedegenerative changes are noted throughout the cervical spine. No focallytic or blastic lesion. The parotid and submandibular glands areunremarkable. There is 3 mm hypodense lesion within the right lobe of thethyroid gland The oral cavity and tongue are unremarkable. The nasopharynx oropharynxand hypopharynx are unremarkable. No prevertebral edema orretropharyngeal fluid collection. The vallecula epiglottis performedsinuses are unremarkable. The larynx, upper trachea and upper esophagusare unremarkable The carotid and vertebral arteries are opacified.. The internal jugularveins are opacified. Central venous port is noted in the anterior upperright chest wall tracking into the SVC. Calcification noted within theaortic arch and coronary arteries. No pathologically enlarged or necrotic cervical lymph nodes. No discreteenhancing neck mass, fluid collection or acute inflammatory changes. Noacute abnormality within the visualized lung apices. IMPRESSION: 1. No pathologically enlarged or necrotic cervical lymph nodes. Nodiscrete enhancing neck mass, fluid collection or acute inflammatorychanges. 2. Aortic and coronary artery calcification. 3. Moderate multilevel degenerative changes of the cervical spine Referred By: AVELINO MORRIS Interpreted By: Ramone Grubbs MD, 10/26/2024 2:51 PM us Avelino Morris MD CT Final Result * CT CHEST+ABD+PEL W CON (10/25/2024 9:34 AM MECHANICAL SYSTEM TECHNICIAN) Anatomical Region Laterality Modality Chest, Abdomen, Pelvis Computed Tomography 10/27/2024 10:0 2 AM MECHANICAL SYSTEM TECHNICIAN Impressions 10/27/2024 11:23 AM MECHANICAL SYSTEM TECHNICIAN IMPRESSION: 1. Interval decrease in size of the spleen. The larger hypodense splenic lesion has decreased in size to 0.9 cm, previously 1.5 cm, and may reflect proportional decrease in size of pseudocyst versus disease involvement. 2. No thoracic, abdominal, or pelvic lymphadenopathy is seen. 3. No acute abnormality in the chest, abdomen, or pelvis. Chronic findings as above. The attending radiologist has reviewed the image(s) and agrees with the content of this report. Ordered By: AVELINO MORRIS Interpreted By: Sanjay Fuentes MD, 10/27/2024 10:02 AM Narrative 10/27/2024 11:23 AM MECHANICAL SYSTEM TECHNICIAN [address] [place] [address] EXAMINATION: CT CHEST+ABD+PEL W CON DATE: 10/25/2024 9:07 AM HISTORY: 69 years Female. With CLL COMPARISON: 02/23/2024 CT chest, abdomen, pelvis TECHNIQUE: Computed tomography of the chest, abdomen, and pelvis was performed after administration of intravenous contrast, 95 mL of Isovue-370 without immediate complication and according to routine protocol. A dose lowering technique was used for this procedure, which may include, but is not limited to, dose reduction technique, automated exposure control, and/or the use of iterative reconstruction, in accordance with ALARA (As Low As Reasonably Achievable)/Image Gently principle. FINDINGS: Lungs and airways: The lungs are clear. The central airways are patent. Pleura: No pneumothorax or pleural effusion is identified. Heart and pericardium: The heart is normal in size. Coronary artery calcifications and/or stents. No pericardial effusion is identified. Chest vasculature: The aorta is normal in course and caliber. Mild atherosclerotic calcifications of the aorta and its branches. Chest port with tip terminating at the cavoatrial junction. Chest lymphatics: No axillary, mediastinal, or hilar lymphadenopathy is identified. Hepatobiliary system: The liver is normal in size and contour. No biliary duct dilatation is identified. The gallbladder is unremarkable. Pancreas and adrenal glands: The pancreas is normal. The adrenal glands are normal. Genitourinary tract: The kidneys enhance symmetrically. Simple bilateral renal cysts, for which no further follow-up is recommended. No hydronephrosis or renal stone. The uterus is retroflexed. Postsurgical changes noted along the regions of both fallopian tubes. Gastrointestinal tract: No bowel dilatation or bowel wall thickening is identified. The appendix is normal. No ascites or free intraperitoneal air is present. There is a tiny hiatal hernia. Abdomen and pelvis vasculature: The abdominal aorta is normal in course and caliber. There are calcifications of the aorta and its branches. Abdomen and pelvis lymphatics: The spleen has decreased in size from 02/23/2024, measuring 10.8 cm in anterior posterior dimension today and 14.8 cm and anteroposterior dimension on 02/23/2024. A couple of small splenic lesions are noted along the superior lateral aspect of the spleen, measuring 0.9 and 0.5 cm respectively, previously 1.5 and 0.5 cm on 02/23/2024. This may reflect the decrease in size of the larger pseudocyst due to decrease in size of spleen versus focal sites of disease involvement. No retroperitoneal, mesenteric, iliac, or inguinal lymphadenopathy is identified. Bones and soft tissues: No acute fracture or destructive osseous lesion is identified. There are degenerative changes throughout the visualized spine. Soft tissues are unremarkable. Procedure Note Ortega rAias MD - 10/27/[address] [place] [address] EXAMINATION: CT CHEST+ABD+PEL W CON DATE: 10/25/2024 9:07 AM HISTORY: 69 years Female. With CLL COMPARISON: 02/23/2024 CT chest, abdomen, pelvis TECHNIQUE: Computed tomography of the chest, abdomen, and pelvis was performed afteradministration of intravenous contrast, 95 mL of Isovue-370 withoutimmediate complication and according to routine protocol. A dose loweringtechnique was used for this procedure, which may include, but is notlimited to, dose reduction technique, automated exposure control, and/orthe use of iterative reconstruction, in accordance with ALARA (As Low AsReasonably Achievable)/Image Gently principle. FINDINGS: Lungs and airways: The lungs are clear. The central airways arepatent. Pleura: No pneumothorax or pleural effusion is identified. Heart and pericardium: The heart is normal in size. Coronary arterycalcifications and/or stents. No pericardial effusion is identified. Chest vasculature: The aorta is normal in course and caliber. Mildatherosclerotic calcifications of the aorta and its branches. Chest portwith tip terminating at the cavoatrial junction. Chest lymphatics: No axillary, mediastinal, or hilar lymphadenopathy isidentified. Hepatobiliary system: The liver is normal in size and contour. Nobiliary duct dilatation is identified. The gallbladder isunremarkable. Pancreas and adrenal glands: The pancreas is normal. The adrenal glandsare normal. Genitourinary tract: The kidneys enhance symmetrically. Simple bilateralrenal cysts, for which no further follow-up is recommended. Nohydronephrosis or renal stone. The uterus is retroflexed. Postsurgicalchanges noted along the regions of both fallopian tubes. Gastrointestinal tract: No bowel dilatation or bowel wall thickening isidentified. The appendix is normal. No ascites or free intraperitonealair is present. There is a tiny hiatal hernia. Abdomen and pelvis vasculature: The abdominal aorta is normal in courseand caliber. There are calcifications of the aorta and its branches. Abdomen and pelvis lymphatics: The spleen has decreased in size from02/23/2024, measuring 10.8 cm in anterior posterior dimension today and 14.8cm and anteroposterior dimension on 02/23/2024. A couple of small spleniclesions are noted along the superior lateral aspect of the spleen,measuring 0.9 and 0.5 cm respectively, previously 1.5 and 0.5 cm on02/23/2024. This may reflect the decrease in size of the larger pseudocystdue to decrease in size of spleen versus focal sites of diseaseinvolvement. No retroperitoneal, mesenteric, iliac, or inguinallymphadenopathy is identified. Bones and soft tissues: No acute fracture or destructive osseous lesionis identified. There are degenerative changes throughout the visualizedspine. Soft tissues are unremarkable. IMPRESSION: 1. Interval decrease in size of the spleen. The larger hypodense spleniclesion has decreased in size to 0.9 cm, previously 1.5 cm, and may reflectproportional decrease in size of pseudocyst versus disease involvement. 2. No thoracic, abdominal, or pelvic lymphadenopathy is seen. 3. No acute abnormality in the chest, abdomen, or pelvis. Chronic findingsas above. The attending radiologist has reviewed the image(s) and agrees with thecontent of this report. Ordered By: AVELINO MORRIS Interpreted By: Sanjay Fuentes MD, 10/27/2024 10:02 AM Avelino Morris MD CT Final Result * CT GD ASPIR+BX BONE MARROW (10/04/2024 12:38 PM MECHANICAL SYSTEM TECHNICIAN) Anatomical Region Laterality Modality Bone Computed Tomogra phy, Radiographic Imaging 10/05/2024 9:42 AM MECHANICAL SYSTEM TECHNICIAN Impressions 10/05/2024 5:28 PM MECHANICAL SYSTEM TECHNICIAN IMPRESSION: CT-guided percutaneous bone marrow biopsy, as [...] 10/05/2024 9:42 AM Narrative 10/05/2024 5:28 PM MECHANICAL SYSTEM TECHNICIAN [address] [address] PROCEDURE: CT-guided bone marrow aspiration and biopsy DATE OF PROCEDURE: 10/04/2024 11:57 AM INDICATION: 9-year-old female with Chronic lymphocytic leukemia Primary provider: Virgil Peña PA-C Supervising provider: Parish Michael M.D. Conscious sedation: Administered and monitored by a qualified interventional radiology nurse under supervision of the interventional physician contact center assistant. There was continuous monitoring of vital signs including pulse oximetry, end-tidal CO2, and EKG. Total intraservice or [id number] sedation time: 4 minutes. TECHNIQUE AND FINDINGS: Informed written consent was obtained. The patient was then brought to the CT scanner suite, placed in the prone position, and [place] protocol was observed to verify correct patient, [...] The needle was then connected to an [employer] motorized device to penetrate the cortex. At [...] Procedure Note Parish Michael MD - 10/05/[address] [address] PROCEDURE: CT-guided bone marrow aspiration and biopsy DATE OF PROCEDURE: 10/04/2024 11:57 AM INDICATION: 9-year-old female with Chronic lymphocytic leukemia Primary provider: Virgil Peña PA-C Supervising provider: Parish Michael M.D. Conscious sedation: Administered and monitored by a qualifiedinterventional radiology nurse under supervision of the interventionalphysician contact center assistant. There was continuous monitoring of vital signsincluding pulse oximetry, end-tidal CO2, and EKG. Total intraservice vsnabj-eu-uvnm sedation time: 4 minutes. TECHNIQUE AND FINDINGS: Informed written consent was obtained. The patient was then brought to theCT scanner suite, placed in the prone position, and [place] protocol wasobserved to verify correct patient, site, [...] Interpreted By: CHACORTA Mtz, 10/05/2024 9:42 AM us Avelino Morris MD CT Final Result * Flow Cytometry (10/04/2024 12:31 PM MECHANICAL SYSTEM TECHNICIAN) FLOW CYTOMETRY RESULTS [facility] Department of Laboratory Medicine [address] [place] [phone] , extension [phone] Pathology Report Flow Cytometry Report Name: THANIA SHABAZZ Specimen #: [id number] Age: 2 1955 (Age: 69) Location: [facility] Sex: F Procedure Date: 10/04/2024 Hospital #: [id number] Date Received: 10/04/2024 Date Reported: 10/07/2024 Provider: [...] are seen. Tested: CD45, CD19, CD20, Surface [place], Surface Lambda, CD5, CD10, CD38, CD34, CD14, CD117, CD4, CD8, CD3, CD7, CD56, CD13, CD33, CD64, CD11b, HLA-DR, CD23, CD200 Electronically Signed Out BELLA PEPPER MD This test was developed and its performance characteristics determined by [facility]. It has not been cleared or approved by the U.S. Food and Drug Administration. However, the use of Analyte Specific Reagents does not require FDA approval. [facility] 10/04/2024 12:3 1 PM MECHANICAL SYSTEM TECHNICIAN 10/04/2024 12:50 PM MECHANICAL SYSTEM TECHNICIAN Comment:Bone marrow aspirati on (See report [id number]) Avelino Morris MD PATHOLOGY/CYTOLOGY OR DERABLES Final Result Performing Organization Address [facility] Co de Phone Number [facility] [address] [place] [address], [phone] * (ABNORMAL) PROTIME/INR, VENOUS (PROTHROMBIN TIME) (10/04/2024 11:31 AM MECHANICAL SYSTEM TECHNICIAN) PROTIME 12.7(H) 9.4 - 12.5 SEC 10/04/2024 11:53 AM MECHANICAL SYSTEM TECHNICIAN [facility] INR 1.1 0.8 - 1.1 10/04/2024 11:53 AM MECHANICAL SYSTEM TECHNICIAN [facility] 10/04/2024 11:3 1 AM MECHANICAL SYSTEM TECHNICIAN Bayron Perkins MD LABORATORY Final Result Performing Organization Address [facility] Co de Phone Number [facility] [address] [place] [address], [phone] * (ABNORMAL) CBC W/DIFF AUTOMATED (10/04/2024 11:31 AM MECHANICAL SYSTEM TECHNICIAN) WBC 3.15(L) 4.00 - 10.80 x10'3/uL 10/04/2024 11:39 AM [facility] RBC 3.88(L) 4.10 - 5.40 x10'6/uL 10/04/2024 11:39 AM [facility] HGB 12.5 12.0 - 16.0 G/DL 10/04/2024 11:39 AM [facility] HCT 37.9 36.0 - 47.0 % 10/04/2024 11:39 AM [facility] MCV 97.7 78.0 - 100.0 FL 10/04/2024 11:39 AM [facility] MCH 32.2(H) 27.0 - 31.0 PG 10/04/2024 11:39 AM [facility] MCHC 33.0 33.0 - 36.0 G/DL 10/04/2024 11:39 AM [facility] RDW 14.4 11.5 - 14.5 % 10/04/2024 11:39 AM [facility] PLT 145(L) 150 - 350 x10'3/uL 10/04/2024 11:39 AM [facility] MPV 9.3 7.4 - 10.4 FL 10/04/2024 11:39 AM [facility] DIFFERENTIAL TYPE AUTOMATED DIFFERENTIAL 10/04/2024 11:39 AM [facility] SEG NEUTROPHILS 65.8 % 11:39 AM [facility] LYMPHOCYTES 19.0 % 10/04/2024 11:39 AM [facility] MONOCYTES 14.9 % 10/04/2024 11:39 AM [facility] EOSINOPHILS 0.0 % 10/04/2024 11:39 AM [facility] BASOPHILS 0.0 % 10/04/2024 11:39 AM [facility] IMMATURE GRANS % 0.3 % 10/04/19 11:39 AM [facility] ABS. NEUTROPHILS 2.07 1.60 - 8.30 x10'3/uL 10/04/2024 11:39 AM MECHANICAL SYSTEM TECHNICIAN [facility] ABS. LYMPHOCYTES 0.60(L) 0.80 - 4.70 x10'3/uL 10/04/2024 11:39 AM MECHANICAL SYSTEM TECHNICIAN [facility] ABS. MONOCYTES 0.47 0.00 - 1.50 x10'3/uL 10/04/2024 11:39 AM MECHANICAL SYSTEM TECHNICIAN [facility] ABS. EOSINOPHILS 0.00 0.00 - 0.40 x10'3/uL 10/04/2024 11:39 AM MECHANICAL SYSTEM TECHNICIAN [facility] ABS. BASOPHILS 0.00 0.00 - 0.20 x10'3/uL 10/04/2024 11:39 AM [facility] ABS. IMMATURE GRANULOCYTES 0.01 0.00 - 0.03 x10'3/uL 10/04/2024 11:39 AM [facility] ABS. NUCLEATED RBC'S 0.00 0.00 - 0.01 x10'3/uL 10/04/2024 11:39 AM [facility] NRBC % 0.0 % 10/04/2024 11:39 AM [facility] 10/04/2024 11:3 1 AM MECHANICAL SYSTEM TECHNICIAN Bayron Perkins MD LABORATORY Final Result [facility] [address] [place] [phone], [phone] * Pathology (10/04/2024 12:00 AM MECHANICAL SYSTEM TECHNICIAN) PATHOLOGY [facility] Department of Laboratory Medicine [address] [place] [address] , extension [phone] Pathology Report Bone Marrow Report Name: THANIA SHABAZZ Specimen #: [id number] Age: 2 1955 (Age: 69) Location: [facility] Sex: F Procedure Date: 10/04/2024 Hospital #: [id number] Date Received: 10/04/2024 Date Reported: 10/07/2024 Provider: [...] interpretation, and sign out were performed at [facility], [address] [place] [address]. All immunohistochemical and histochemical tests were developed by and performed at [facility], [address] [place] [address]. All tests reported here have not been [...] SPECIAL PROCEDURES: Flow Cytometry: Flow cytometric analysis ([id number]) reveals no abnormal cell population. Please see flow cytometry report for details. Immunohistochemistry: Immunohistochemical stains for CD3, CD5, CD20, CD23, CD43, LEF1, and kappa and lambda immunoglobulin light chains performed on the clot section highlight benign lymphoid aggregates comprised of mature T cells with no diagnostic evidence of involvement by chronic lymphocytic leukemia/small lymphocytic lymphoma. [facility] 10/04/2024 10/04/2024 1:1 2 PM MECHANICAL SYSTEM TECHNICIAN Comment:Bone marrow, right i liac aspiration&Bone marrow, right iliac biopsy us Avelino Morris MD PATHOLOGY/CYTOLOGY OR DERABLES Final Result [facility] [address] [place] [address], [phone] from Last 3 Months Insurance MEDICARE [facility] Care Teams Erp Pm Relationship Specialty Start Date End Date Kip Hanson MD PCP - General FAMILY PRACTICE 10/24/20
== END 2024-11-08 10:21 | disposition home or self-care (01) ==
PROVIDERS: PCP Internal Medicine Hematology; Visit Provider Internal Medicine Hematology
DX: Z45.2 Encounter for adjustment and management of vascular access device (principal); C91.10 Chronic lymphocytic leukemia of B-cell type not having achieved remission
CPT/HCPCS: 96523

== ENCOUNTER 2024-12-08 10:12 | Outpatient (CLI) | payer MEDICARE, BC, SELFPAY ==
[2024-12-08 10:36] VITALS: BMI 21.5
[2024-12-08 10:46] VITALS: BP 111/67; PULSE 72; RESP 14
[2024-12-08] MEDS: HEPARIN SODIUM LOCK FLUSH 500 UNITS/5 ML SYRINGE IV PUSH (10:48)
--- NOTE | 2024-12-08 10:49 | PC.NURSE ---
Patient here for monthly port a cath flush. Procedure explain. NO concerns. Port flushed per protocol. SEE MAR/patient care notes. Tolerated well.
--- OUTSIDE RECORDS SUMMARY | 2024-12-08 10:53 | XMS_ITS ---
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 MF: ELISABET Report ID: [id number] Reading Location: [place] [address] Social History Type Status Start Date End Date Code Code Syst em Smoking History Never smoker (Never Smoked) 331183707 SNOMED CT Sex Female Assessment You had [...] Code System UNSPECIFIED ABNORMALITIES OF BREATHING active 180514003 SNOMED-CT Allergies and Adverse Reactions Allergy Substance Reaction Severity Start Date Concern Status Code Code System ERYTHROMYCIN Rash (SNOMED-CT: 846761467) Active 4053 RxNorm METRONIDAZOLE Active 6922 RxNorm AMOXAPINE Active 722 RxNorm GEMFIBROZIL Active 4719 RxNorm PRAVASTATIN SODIUM Fever (SNOMED-CT: 116707545) Active 424000 RxNorm EPINEPHRINE HCL-SODIUM CHLORIDE HEART PALPITATIONS (SNOMED-CT: null) Active 3992 RxNorm Plan of Treatment CT Abdomen/Pelvis W Contrast (91167) CT Chest/Lung W Contrast (01754) 2022 CT Abdomen/Pelvis W Contrast (77688) CT Chest/Lung W Contrast (95572) 2022 Bone Density Dexa 05/13/2024 Digital Medina Screen Bilateral (34755) Encounters Encounter Diagnosis Start Date Code Code Sys tem Menopause present 05/13/2024 [id number] [facility]-CT Personal Care Team Section Performer Name Performer Role Active Date Inactive Da te Imaging Narrative Notes
--- OUTSIDE RECORDS SUMMARY | 2024-12-08 10:53 | XMS_ITS ---
Author Organization Unknown Address [address] [place], [place] [phone] Phone Care Team Providers Care Systems Specialist Name Role Phone ROSMERY Bass Attending Unavailable [...] em Smoking History Never smoker (Never Smoked) 297038227 SNOMED CT Sex Female Assessment You had [...] Code System UNSPECIFIED ABNORMALITIES OF BREATHING active 099412959 SNOMED-CT Allergies and Adverse Reactions Allergy Substance Reaction Severity Start Date Concern Status Code Code System ERYTHROMYCIN Rash (SNOMED-CT: 680994176) Active 4053 RxNorm METRONIDAZOLE Active 6922 RxNorm AMOXAPINE Active 722 RxNorm GEMFIBROZIL Active 4719 RxNorm PRAVASTATIN SODIUM Fever (SNOMED-CT: 122398888) Active 014679 RxNorm EPINEPHRINE HCL-SODIUM CHLORIDE HEART PALPITATIONS (SNOMED-CT: null) Active 3992 RxNorm Plan of Treatment CT Abdomen/Pelvis W Contrast (23682) CT Chest/Lung W Contrast (90670) 2022 CT Abdomen/Pelvis W Contrast (10778) CT Chest/Lung W Contrast (61195) 2022 Bone Density Dexa 05/13/2024 Digital Medina Screen Bilateral (59503) Encounters Encounter Diagnosis Start Date Code Code Sys tem Screening mammography 05/09/2024 01950046 SNOMED -CT Personal Care Team Section Performer Name Performer Role Active Date Inactive Da te Imaging Narrative Notes [facility] 05/12/2024 12:[address] [address] RADIOLOGY REPORT Patient Number: [id number] Patient Name: HARIKA SALAZAR Type: O/P MR Number: [id number] : 1955 Age: 68 Sex: F Room #: Admit Date: 05/09/24 Discharge Date 05/09/24 Ordering Physician: ROSMERY Bass Family Physician: ROSMERY Cazares Physician: X-Ray Number : [id number] DIG 3D MEDINA SCREENING BILATERA 01458 COMPLETE:05/09/24 13:33 [id number] (REASONS-DIG 3D MEDINA SCREENING BILATERAL: screening See Scanned Image Attachment for Report Dictated By: Trans Initials: XX Trans Date: 05/12/24 12:37 <<REPDIST>>
--- OUTSIDE RECORDS SUMMARY | 2024-12-08 10:53 | XMS_ITS | Clinical Summary ---
Author Organization [facility] Address [address] [place] [address] Care Team Providers Care Retail Salesman Name Role Phone Kip Hanson MD Primary Care Provider [phone] Allergies Active Allergy Reactions Criticality Noted Date [...] Department Care Team Description 10/25/2024 9:00 AM ENVIRONMENTAL STUDIES FACULTY MEMBER - 10/25/2024 11:59 PM ENVIRONMENTAL STUDIES FACULTY MEMBER Hospital En[facility] [address] [place] [address] Jalil Morris MD Discharge Disposition: Home or Self Care (Routine Discharge) 10/25/2024 Travel 10/04/2024 10:58 AM ENVIRONMENTAL STUDIES FACULTY MEMBER - 10/04/2024 11:59 PM ENVIRONMENTAL STUDIES FACULTY MEMBER Hospital Encounter [facility] [address] [place] [address] Jalil Morris MD Discharge Disposition: Home or Self Care (Routine Discharge) 10/04/2024 10:30 AM ENVIRONMENTAL STUDIES FACULTY MEMBER - 10/04/2024 10:57 AM ENVIRONMENTAL STUDIES FACULTY MEMBER Hospital Encounter [facility] [address] [place] [address] Bayron Perkins MD Discharge Disposition: Home or Self Care (Routine Discharge) 10/04/2024 Travel 09/21/[address] [facility] Interventional Radiology [address] [place] [address] Virgil Peña PA-C Appointment Request from Last 3 Months Social History Tobacco Use Types Packs/Day Years Used Date Smoking Tobacco: Never Smokeless Tobacco: Never Tobacco Cessation:Counseling Given: Not Answered Alcohol Use Standard Drinks/Week Comments Not Currently 0 (1 standard drink = 0.6 oz pur e alcohol) rarely Comments Unknown Sex and Gender Information Value Date Recorded Sex Assigned at Female 10/04/2024 10:54 AM ENVIRONMENTAL STUDIES FACULTY MEMBER Legal Sex Female 10:46 AM ENVIRONMENTAL STUDIES FACULTY MEMBER Gender Identity Not on file Sexual Orientation Not on file Last Filed Vital Signs Vital Sign Reading Time Taken Comments Blood Pressure 100/62 10/04/2024 1:30 PM ENVIRONMENTAL STUDIES FACULTY MEMBER Pulse 90 10/04/2024 1:30 PM ENVIRONMENTAL STUDIES FACULTY MEMBER Temperature 36.7 C (98.1 F) 06/30/2023 12:05 PM ENVIRONMENTAL STUDIES FACULTY MEMBER Respiratory Rate 16 10/04/2024 1:30 PM ENVIRONMENTAL STUDIES FACULTY MEMBER Oxygen Saturation 100% 10/04/2024 1:30 PM ENVIRONMENTAL STUDIES FACULTY MEMBER Inhaled Oxygen Concentration - - Weight 56.7 kg (125 lb) 10/04/2024 11:41 AM ENVIRONMENTAL STUDIES FACULTY MEMBER Height 162.6 cm (5' 4 ) 10/04/2024 11:41 AM ENVIRONMENTAL STUDIES FACULTY MEMBER Body Mass Index 21.46 10/04/2024 11:41 AM ENVIRONMENTAL STUDIES FACULTY MEMBER Plan of Treatment Health Maintenance Due Date Last Done Comments Colorectal Cancer Screening Colonoscopy (10 Years) 1955 COVID-19 Vaccine (#1) 1960 Hepatitis C 1973 Mammogram Screening 1995 DTaP, Tdap and Td Vaccines ( 1 - Tdap) 12/11/2004 12/10/2004 RSV Immunization or 60+ Years (1 - Risk 60-74 years 1-dose series) 2015 Annual Medicare Wellness Visit 2020 Dexa Scan (General) 2020 Pneumococcal Vaccine: 50+ Years (2 of 2 - PPSV23 or PCV20) 02/11/2021 12/17/2020 Zoster Vaccines Completed 08/02/2019, 03/31/2019 Meningococcal B [...] NECK W CON Routine 10/25/2024 9:35 AM ENVIRONMENTAL STUDIES FACULTY MEMBER CLL (chronic lymphocytic leukemia) ([facility]) CT CHEST+ABD+PEL W CON Routine 10/25/2024 9:34 AM ENVIRONMENTAL STUDIES FACULTY MEMBER CLL (chronic lymphocytic leukemia) ([facility]) CT GD ASPIR+BX BONE MARROW Routine 10/04/2024 12:38 PM ENVIRONMENTAL STUDIES FACULTY MEMBER CLL (chronic lymphocytic leukemia) ([facility]) FLOW CYTOMETRY Routine 10/04/2024 12:31 PM ENVIRONMENTAL STUDIES FACULTY MEMBER CBC W/DIFF AUTOMATED Routine 10/04/2024 11:31 AM ENVIRONMENTAL STUDIES FACULTY MEMBER Leukemia, lymphocytic, chronic ([facility]) PROTHROMBIN TIME, VENOUS Routine 10/04/2024 11:31 AM ENVIRONMENTAL STUDIES FACULTY MEMBER Leukemia, lymphocytic, chronic (CMS/HCC HHS/HCC) PATHOLOGY Routine 10/04/2024 12:00 AM ENVIRONMENTAL STUDIES FACULTY MEMBER from Last 3 Months Results * CT SOFT TISSUE NECK W CON (10/25/2024 9:35 AM ENVIRONMENTAL STUDIES FACULTY MEMBER) Anatomical Region Laterality Modality Neck Computed Tomogra phy 10/26/2024 2:51 PM ENVIRONMENTAL STUDIES FACULTY MEMBER Impressions 10/26/2024 2:55 PM ENVIRONMENTAL STUDIES FACULTY MEMBER IMPRESSION: 1. No pathologically enlarged or necrotic cervical lymph nodes. No discrete enhancing neck mass, fluid collection or acute inflammatory changes. 2. Aortic and coronary artery calcification. 3. Moderate multilevel degenerative changes of the cervical spine Referred By: JALIL MORRIS Interpreted By: Ramone Grubbs MD, 10/26/2024 2:51 PM Narrative 10/26/2024 2:55 PM ENVIRONMENTAL STUDIES FACULTY MEMBER [address] [place] [address] EXAMINATION:Neck CT with contrast 10/25/2024 INDICATION: Chronic [...] Procedure Note Ramone Grubbs MD - 10/26/2024 [place] [id number] [facility] [place] [address] EXAMINATION:Neck CT with contrast 10/25/2024 INDICATION: Chronic [...] changes of the cervical spine Referred By: JALIL MORRIS Interpreted By: Ramone Grubbs MD, 10/26/2024 2:51 PM us Jalil Morris MD CT Final Result * CT CHEST+ABD+PEL W CON (10/25/2024 9:34 AM ENVIRONMENTAL STUDIES FACULTY MEMBER) Anatomical Region Laterality Modality Chest, Abdomen, Pelvis Computed Tomography 10/27/2024 10:0 2 AM ENVIRONMENTAL STUDIES FACULTY MEMBER Impressions 10/27/2024 11:23 AM ENVIRONMENTAL STUDIES FACULTY MEMBER IMPRESSION: 1. Interval decrease in size of [...] the content of this report. Ordered By: JALIL MORRIS Interpreted By: Sanjay Fuentes MD, 10/27/2024 10:02 AM Narrative 10/27/2024 11:23 AM ENVIRONMENTAL STUDIES FACULTY MEMBER [address] [place] [address] EXAMINATION: CT CHEST+ABD+PEL W CON DATE: 10/25/2024 [...] Soft tissues are unremarkable. Procedure Note Ortega Arias MD - 10/27/2024 [facility] [address] [facility] [place] [address] EXAMINATION: CT CHEST+ABD+PEL W CON DATE: 10/25/2024 [...] with thecontent of this report. Ordered By: JALIL MORRIS Interpreted By: Sanjay Fuentes MD, 10/27/2024 10:02 AM Jalil Morris MD CT Final Result * CT GD ASPIR+BX BONE MARROW (10/04/2024 12:38 PM ENVIRONMENTAL STUDIES FACULTY MEMBER) Anatomical Region Laterality Modality Bone Computed Tomogra phy, Radiographic Imaging 10/05/2024 9:42 AM ENVIRONMENTAL STUDIES FACULTY MEMBER Impressions 10/05/2024 5:28 PM ENVIRONMENTAL STUDIES FACULTY MEMBER IMPRESSION: CT-guided percutaneous bone marrow biopsy, as [...] Mtz on 10/05/2024 9:42 AM Ordered By: JALIL MORRIS Interpreted By: CHACORTA Mtz, 10/05/2024 9:42 AM Narrative 10/05/2024 5:28 PM ENVIRONMENTAL STUDIES FACULTY MEMBER [address] [address] PROCEDURE: CT-guided bone marrow aspiration and biopsy DATE OF PROCEDURE: 10/04/2024 11:57 AM INDICATION: 9-year-old female with Chronic lymphocytic leukemia Primary provider: MIRIAN UriosteguiC Supervising provider: Parish Michael M.D. Conscious sedation: Administered and monitored by a qualified interventional radiology nurse under supervision of the interventional physician logging assistant. There was continuous monitoring of vital signs including pulse oximetry, end-tidal CO2, and EKG. Total intraservice or trrg-nm-[id number] sedation time: 4 minutes. TECHNIQUE AND FINDINGS: Informed written consent was obtained. The patient was then brought to the CT scanner suite, placed in the prone position, and Eldridge protocol was observed to verify correct patient, [...] The needle was then connected to an [employer] motorized device to penetrate the cortex. At [...] Procedure Note Parish Michael MD - 10/05/[address] [address] PROCEDURE: CT-guided bone marrow aspiration and biopsy DATE OF PROCEDURE: 10/04/2024 11:57 AM INDICATION: 9-year-old female with Chronic lymphocytic leukemia Primary provider: Virgil Peña PA-C Supervising provider: Parish Michael M.D. Conscious sedation: Administered and monitored by a qualifiedinterventional radiology nurse under supervision of the interventionalphysician logging assistant. There was continuous monitoring of vital signsincluding pulse oximetry, end-tidal CO2, and EKG. Total intraservice itxcnw-vd-dblz sedation time: 4 minutes. TECHNIQUE AND FINDINGS: Informed written consent was obtained. The patient was then brought to theCT scanner suite, placed in the prone position, and Eldridge protocol wasobserved to verify correct patient, site, [...] Mtz on 10/05/2024 9:42 AM Ordered By: JALIL MORRIS Interpreted By: CHACORTA Mtz, 10/05/2024 9:42 AM us Jalil Morris MD CT Final Result * Flow Cytometry (10/04/2024 12:31 PM ENVIRONMENTAL STUDIES FACULTY MEMBER) FLOW CYTOMETRY RESULTS [facility] Department of Laboratory Medicine [address] [place] [address] , extension [phone] Pathology Report Flow Cytometry Report Name: THANIA SHABAZZ Specimen #: [id number] Age: 2 1955 (Age: 69) Location: [facility] Sex: F Procedure Date: 10/04/2024 Hospital #: [id number] Date Received: 10/04/2024 Date Reported: 10/07/2024 Provider: JALIL MORRIS MD Source: Bone marrow aspiration (See [...] are seen. Tested: CD45, CD19, CD20, Surface Galloway, Surface Lambda, CD5, CD10, CD38, CD34, CD14, CD117, CD4, CD8, CD3, CD7, CD56, CD13, CD33, CD64, CD11b, HLA-DR, CD23, CD200 Electronically Signed Out BELLA PEPPER MD This test was developed and its performance characteristics determined by [facility]. It has not been cleared or approved by the U.S. Food and Drug Administration. However, the use of Analyte Specific Reagents does not require FDA approval. [facility] 10/04/2024 12:3 1 PM ENVIRONMENTAL STUDIES FACULTY MEMBER 10/04/2024 12:50 PM ENVIRONMENTAL STUDIES FACULTY MEMBER Comment:Bone marrow aspirati on (See report [id number]) Jalil Morris MD PATHOLOGY/CYTOLOGY OR DERABLES Final Result Performing Organization Address [facility] Co de Phone Number [facility] [address] [place] [address], [phone] * (ABNORMAL) PROTIME/INR, VENOUS (PROTHROMBIN TIME) (10/04/2024 11:31 AM ENVIRONMENTAL STUDIES FACULTY MEMBER) PROTIME 12.7(H) 9.4 - 12.5 SEC 10/04/2024 11:53 AM ENVIRONMENTAL STUDIES FACULTY MEMBER [facility] INR 1.1 0.8 - 1.1 10/04/2024 11:53 AM ENVIRONMENTAL STUDIES FACULTY MEMBER [facility] 10/04/2024 11:3 1 AM ENVIRONMENTAL STUDIES FACULTY MEMBER Bayron Perkins MD LABORATORY Final Result Performing Organization Address [facility] Co de Phone Number [facility] [address] [place] [address], [phone] * (ABNORMAL) CBC W/DIFF AUTOMATED (10/04/2024 11:31 AM ENVIRONMENTAL STUDIES FACULTY MEMBER) WBC 3.15(L) 4.00 - 10.80 x10'3/uL 10/04/2024 11:39 AM ENVIRONMENTAL STUDIES FACULTY MEMBER [facility] RBC 3.88(L) 4.10 - 5.40 x10'6/uL 10/04/2024 11:39 AM [facility] HGB 12.5 12.0 - 16.0 G/DL 10/04/2024 11:39 AM [facility] HCT 37.9 36.0 - 47.0 % 10/04/2024 11:39 AM [facility] MCV 97.7 78.0 - 100.0 FL 10/04/2024 11:39 AM [facility] MCH 32.2(H) 27.0 - 31.0 PG 10/04/2024 11:39 AM [facility] MCHC 33.0 33.0 - 36.0 G/DL 10/04/2024 11:39 AM [facility] RDW 14.4 11.5 - 14.5 % 10/04/2024 11:39 AM [facility] PLT 145(L) 150 - 350 x10'3/uL 10/04/2024 11:39 AM [facility] MPV 9.3 7.4 - 10.4 FL 10/04/2024 11:39 AM [facility] DIFFERENTIAL TYPE AUTOMATED DIFFERENTIAL 10/04/2024 11:39 AM [facility] SEG NEUTROPHILS 65.8 % 11:39 AM [facility] LYMPHOCYTES 19.0 % 10/04/2024 11:39 AM [facility] MONOCYTES 14.9 % 10/04/2024 11:39 AM [facility] EOSINOPHILS 0.0 % 10/04/2024 11:39 AM [facility] BASOPHILS 0.0 % 10/04/2024 11:39 AM [facility] IMMATURE GRANS % 0.3 % 10/04/19 11:39 AM [facility] ABS. NEUTROPHILS 2.07 1.60 - 8.30 x10'3/uL 10/04/2024 11:39 AM ENVIRONMENTAL STUDIES FACULTY MEMBER [facility] ABS. LYMPHOCYTES 0.60(L) 0.80 - 4.70 x10'3/uL 10/04/2024 11:39 AM ENVIRONMENTAL STUDIES FACULTY MEMBER [facility] ABS. MONOCYTES 0.47 0.00 - 1.50 x10'3/uL 10/04/2024 11:39 AM ENVIRONMENTAL STUDIES FACULTY MEMBER [facility] ABS. EOSINOPHILS 0.00 0.00 - 0.40 x10'3/uL 10/04/2024 11:39 AM ENVIRONMENTAL STUDIES FACULTY MEMBER [facility] ABS. BASOPHILS 0.00 0.00 - 0.20 x10'3/uL 10/04/2024 11:39 AM ENVIRONMENTAL STUDIES FACULTY MEMBER [facility] ABS. IMMATURE GRANULOCYTES 0.01 0.00 - 0.03 x10'3/uL 10/04/2024 11:39 AM ENVIRONMENTAL STUDIES FACULTY MEMBER [facility] ABS. NUCLEATED RBC'S 0.00 0.00 - 0.01 x10'3/uL 10/04/2024 11:39 AM ENVIRONMENTAL STUDIES FACULTY MEMBER [facility] NRBC % 0.0 % 10/04/2024 11:39 AM ENVIRONMENTAL STUDIES FACULTY MEMBER [facility] 10/04/2024 11:3 1 AM ENVIRONMENTAL STUDIES FACULTY MEMBER Bayron Perkins MD LABORATORY Final Result Performing Organization Address City/State/[facility] Co de Phone Number [facility] [address] [place] [phone], [phone] * Pathology (10/04/2024 12:00 AM ENVIRONMENTAL STUDIES FACULTY MEMBER) PATHOLOGY [facility] Department of Laboratory Medicine [address] [place] [address] , extension [phone] Pathology Report Bone Marrow Report Name: THANIA SHABAZZ Specimen #: [id number] Age: 2 1955 (Age: 69) Location: [facility] Sex: F Procedure Date: 10/04/2024 [facility] #: [id number] Date Received: 10/04/2024 Date Reported: 10/07/2024 Provider: JALIL MORRIS MD Source: A: Bone marrow, right [...] interpretation, and sign out were performed at [facility], [address] [place] [address]. All immunohistochemical and histochemical tests were developed by and performed at [facility], [address] [place] [address]. All tests reported here have not been [...] SPECIAL PROCEDURES: Flow Cytometry: Flow cytometric analysis ([id number]) reveals no abnormal cell population. Please see flow cytometry report for details. Immunohistochemistry: Immunohistochemical stains for CD3, CD5, CD20, CD23, CD43, LEF1, and kappa and lambda immunoglobulin light chains performed on the clot section highlight benign lymphoid aggregates comprised of mature T cells with no diagnostic evidence of involvement by chronic lymphocytic leukemia/small lymphocytic lymphoma. [facility] 10/04/2024 10/04/2024 1:1 2 PM ENVIRONMENTAL STUDIES FACULTY MEMBER Comment:Bone marrow, right i liac aspiration&Bone marrow, right iliac biopsy Jalil Morris MD PATHOLOGY/CYTOLOGY OR DERABLES Final Result [facility] [address] [place] [address], [phone] from Last 3 Months Insurance MEDICARE [facility] Care Teams Retail Salesman Relationship Specialty Start Date End Date Kip Hanson MD PCP - General FAMILY PRACTICE 10/24/20
== END 2024-12-08 10:13 | disposition home or self-care (01) ==
PROVIDERS: PCP Internal Medicine Hematology; Visit Provider Internal Medicine Hematology
DX: Z45.2 Encounter for adjustment and management of vascular access device (principal); C91.10 Chronic lymphocytic leukemia of B-cell type not having achieved remission
CPT/HCPCS: 96523

== ENCOUNTER 2025-01-09 10:22 | Outpatient (CLI) | payer MEDICARE, BC, SELFPAY ==
--- OUTSIDE RECORDS SUMMARY | 2025-01-09 10:59 | XMS_ITS ---
Author Organization Unknown Address [address] [place], [place] [id number] Phone Care Team Providers Care Novelty Balloon Assembler And Packer Name Role Phone ROSMERY ORTA Shelia Attending [...] old F with given history of: POSTMENOPAUSAL Nuclear Radiologist/Model: [employer] ([id number]) CLINICAL INFORMATION: Current height: 64 inches [...] Luciano Mai M.D. MF: ELISABET Report ID: [id number] Reading Location: [place] [address] Social History Type Status Start Date End Date Code Code Syst em Smoking History Never smoker (Never Smoked) 357356604 SNOMED CT Sex Female Assessment You had [...] Code System UNSPECIFIED ABNORMALITIES OF BREATHING active 561704817 SNOMED-CT Allergies and Adverse Reactions Allergy Substance Reaction Severity Start Date Concern Status Code Code System ERYTHROMYCIN Rash (SNOMED-CT: 659251504) Active 4053 RxNorm METRONIDAZOLE Active 6922 RxNorm AMOXAPINE Active 722 RxNorm GEMFIBROZIL Active 4719 RxNorm PRAVASTATIN SODIUM Fever (SNOMED-CT: 500604635) Active 660224 RxNorm EPINEPHRINE HCL-SODIUM CHLORIDE HEART PALPITATIONS (SNOMED-CT: null) Active 3992 RxNorm Plan of Treatment CT Abdomen/Pelvis W Contrast (05860) CT Chest/Lung W Contrast (16173) 2022 CT Abdomen/Pelvis W Contrast (35844) CT Chest/Lung W Contrast (31333) 2022 Bone Density Dexa 05/13/2024 Digital [place]ina Screen Bilateral (00795) Encounters Encounter Diagnosis Start Date Code Code Sys tem Menopause present 05/13/2024 [id number] [employer]-CT Personal Care Team Section Performer Name Performer Role Active Date Inactive Da te Imaging Narrative Notes
--- OUTSIDE RECORDS SUMMARY | 2025-01-09 10:59 | XMS_ITS | Clinical Summary ---
Author Organization [facility] Address [address] [place] [address] Care Team Providers Care Booth Supervisor Name Role Phone Kip Hanson MD Primary Care Provider Allergies Active Allergy Reactions Criticality Noted Date [...] Department Care Team Description 10/25/2024 9:00 AM SAW HANDLE ASSEMBLER - 10/25/2024 11:59 PM SAW HANDLE ASSEMBLER Hospital Encounter [facility] [place] [address] [address] Avelino Morris MD Discharge Disposition: Home or Self Care (Routine Discharge) 10/25/2024 Travel from Last 3 Months Social History Tobacco Use Types Packs/Day Years Used Date Smoking Tobacco: Never Smokeless Tobacco: Never Tobacco Cessation:Counseling Given: Not Answered Alcohol Use Standard Drinks/Week Comments Not Currently 0 (1 standard drink = 0.6 oz pur e alcohol) rarely Comments Unknown Sex and Gender Information Value Date Recorded Sex Assigned at Female 10/04/2024 10:54 AM SAW HANDLE ASSEMBLER Legal Sex Female 10:46 AM SAW HANDLE ASSEMBLER Gender Identity Not on file Sexual Orientation Not on file Last Filed Vital Signs Vital Sign Reading Time Taken Comments Blood Pressure 100/62 10/04/2024 1:30 PM SAW HANDLE ASSEMBLER Pulse 90 10/04/2024 1:30 PM SAW HANDLE ASSEMBLER Temperature 36.7 C (98.1 F) 06/30/2023 12:05 PM SAW HANDLE ASSEMBLER Respiratory Rate 16 10/04/2024 1:30 PM SAW HANDLE ASSEMBLER Oxygen Saturation 100% 10/04/2024 1:30 PM SAW HANDLE ASSEMBLER Inhaled Oxygen Concentration - - Weight 56.7 kg (125 lb) 10/04/2024 11:41 AM SAW HANDLE ASSEMBLER Height 162.6 cm (5' 4 ) 10/04/2024 11:41 AM SAW HANDLE ASSEMBLER Body Mass Index 21.46 10/04/2024 11:41 AM SAW HANDLE ASSEMBLER Plan of Treatment Health Maintenance Due Date [...] Vaccine: 50+ Years (2 of 2 - PPSV23) 02/11/2021 12/17/2020 Zoster Vaccines Completed 08/02/2019, 03/31/2019 [...] NECK W CON Routine 10/25/2024 9:35 AM SAW HANDLE ASSEMBLER CLL (chronic lymphocytic leukemia) ([facility]) CT CHEST+ABD+PEL W CON Routine 10/25/2024 9:34 AM SAW HANDLE ASSEMBLER CLL (chronic lymphocytic leukemia) ([facility]) from Last 3 Months Results * CT SOFT TISSUE NECK W CON (10/25/2024 9:35 AM SAW HANDLE ASSEMBLER) Anatomical Region Laterality Modality Neck Computed Tomogra phy 10/26/2024 2:51 PM SAW HANDLE ASSEMBLER Impressions 10/26/2024 2:55 PM SAW HANDLE ASSEMBLER IMPRESSION: 1. No pathologically enlarged or necrotic cervical lymph nodes. No discrete enhancing neck mass, fluid collection or acute inflammatory changes. 2. Aortic and coronary artery calcification. 3. Moderate multilevel degenerative changes of the cervical spine Referred By: AVELINO MORRIS Interpreted By: Ramone Grubbs MD, 10/26/2024 2:51 PM Narrative 10/26/2024 2:55 PM SAW HANDLE ASSEMBLER [address] [place] [address] EXAMINATION:Neck CT with contrast 10/25/2024 INDICATION: Chronic [...] Procedure Note Ramone Grubbs MD - 10/26/2024 [place] [address] [facility] [place] [address] EXAMINATION:Neck CT with contrast 10/25/2024 INDICATION: Chronic [...] By: Ramone Grubbs MD, 10/26/2024 2:51 PM Avelino Morris MD CT Final Result * CT CHEST+ABD+PEL W CON (10/25/2024 9:34 AM SAW HANDLE ASSEMBLER) Anatomical Region Laterality Modality Chest, Abdomen, Pelvis Computed Tomography 10/27/2024 10:0 2 AM SAW HANDLE ASSEMBLER Impressions 10/27/2024 11:23 AM SAW HANDLE ASSEMBLER IMPRESSION: 1. Interval decrease in size of [...] 10/27/2024 10:02 AM Narrative 10/27/2024 11:23 AM SAW HANDLE ASSEMBLER [address] [place] [address] EXAMINATION: CT CHEST+ABD+PEL W CON DATE: 10/25/2024 [...] Procedure Note Ortega Arias MD - 10/27/2024 [facility] [address] [place] [address] EXAMINATION: CT CHEST+ABD+PEL W CON DATE: 10/25/2024 [...] AM Avelino Morris MD CT Final Result from Last 3 Months Insurance MEDICARE [facility] Care Teams Booth Supervisor Relationship Specialty Start Date End Date Kip Hanson MD PCP - General FAMILY PRACTICE 10/24/20
[2025-01-09 11:00] VITALS: BP 117/71; PULSE 85; RESP 14; TEMP 36.5; O2SAT 98; BMI 20.7
[2025-01-09] MEDS: HEPARIN SODIUM LOCK FLUSH 500 UNITS/5 ML SYRINGE IV PUSH (11:05)
== END 2025-01-09 10:23 | disposition home or self-care (01) ==
LOC: CHSLAB 10:24 → CHSTREATRM 10:37
PROVIDERS: PCP Internal Medicine Hematology; Visit Provider Internal Medicine Hematology
DX: Z45.2 Encounter for adjustment and management of vascular access device (principal); C91.10 Chronic lymphocytic leukemia of B-cell type not having achieved remission
CPT/HCPCS: 96523

== ENCOUNTER 2025-01-25 11:35 | Outpatient (CLI) | payer MEDICARE, BC, SELFPAY ==
--- OUTSIDE RECORDS SUMMARY | 2025-01-25 11:40 | XMS_ITS ---
Author Organization Unknown Address [address] [place], [place] [phone] Phone Care Team Providers Care Grain Sampler Name Role Phone ROSMERY ORTA Shelia Attending [...] old F with given history of: POSTMENOPAUSAL Tie In Hand/Model: [employer]led[employer] ([id number]) CLINICAL INFORMATION: Current height: 64 inches [...] Luciano Mai M.D. MF: ELISABET Report ID: [id number] Reading Location: [place] [address] Social History Type Status Start Date End Date Code Code Syst em Smoking History Never smoker (Never Smoked) 830006829 SNOMED CT Sex Female Assessment You had [...] Code System UNSPECIFIED ABNORMALITIES OF BREATHING active 521136315 SNOMED-CT Allergies and Adverse Reactions Allergy Substance Reaction Severity Start Date Concern Status Code Code System ERYTHROMYCIN Rash (SNOMED-CT: 281112369) Active 4053 RxNorm METRONIDAZOLE Active 6922 RxNorm AMOXAPINE Active 722 RxNorm GEMFIBROZIL Active 4719 RxNorm PRAVASTATIN SODIUM Fever (SNOMED-CT: 445952619) Active 770616 RxNorm EPINEPHRINE HCL-SODIUM CHLORIDE HEART PALPITATIONS (SNOMED-CT: null) Active 3992 RxNorm Plan of Treatment CT Abdomen/Pelvis W Contrast (76836) CT Chest/Lung W Contrast (62820) 2022 CT Abdomen/Pelvis W Contrast (66992) CT Chest/Lung W Contrast (33845) 2022 Bone Density Dexa 05/13/2024 Digital Medina Screen Bilateral (49919) Encounters Encounter Diagnosis Start Date Code Code Sys tem Menopause present 05/13/2024 819942766 [employer]-CT Personal Care Team Section Performer Name Performer Role Active Date Inactive Da te Imaging Narrative Notes
--- OUTSIDE RECORDS SUMMARY | 2025-01-25 11:40 | XMS_ITS ---
Author Organization Unknown Address [address] [place], [place] [phone] Phone Care Team Providers Care Brim Shaper Name Role Phone ROSMERY Bass Attending Unavailable [...] em Smoking History Never smoker (Never Smoked) 109432109 SNOMED CT Sex Female Assessment You had [...] Code System UNSPECIFIED ABNORMALITIES OF BREATHING active 785102901 SNOMED-CT Allergies and Adverse Reactions Allergy Substance Reaction Severity Start Date Concern Status Code Code System ERYTHROMYCIN Rash (SNOMED-CT: 905331390) Active 4053 RxNorm METRONIDAZOLE Active 6922 RxNorm AMOXAPINE Active 722 RxNorm GEMFIBROZIL Active 4719 RxNorm PRAVASTATIN SODIUM Fever (SNOMED-CT: 403934582) Active 217126 RxNorm EPINEPHRINE HCL-SODIUM CHLORIDE HEART PALPITATIONS (SNOMED-CT: null) Active 3992 RxNorm Plan of Treatment CT Abdomen/Pelvis W Contrast (99089) CT Chest/Lung W Contrast (80881) 2022 CT Abdomen/Pelvis W Contrast (50774) CT Chest/Lung W Contrast (12221) 2022 Bone Density Dexa 05/13/2024 Digital Medina Screen Bilateral (45352) Encounters Encounter Diagnosis Start Date Code Code Sys tem Screening mammography 05/09/2024 89979134 SNOMED -CT Personal Care Team Section Performer Name Performer Role Active Date Inactive Da te Imaging Narrative Notes [facility] 05/12/2024 12:[address] [address] RADIOLOGY REPORT Patient Number: [id number] Patient Name: HARIKA SALAZAR Type: O/P MR Number: [id number] : 1955 Age: 68 Sex: F Room #: Admit Date: 05/09/24 Discharge Date 05/09/24 Ordering Physician: ROSMERY Bass Family Physician: ROSMERY Cazares Physician: X-Ray Number : [id number] DIG 3D MEDINA SCREENING BILATERA 51724 COMPLETE:05/09/24 13:33 [id number] ([employer]ONS-DIG 3D MEDINA SCREENING BILATERAL: screening See Scanned Image Attachment for Report Dictated By: Trans Initials: XX Trans Date: 05/12/24 12:37 <<REPDIST>>
[2025-01-25 12:05] LABS: Hematocrit 38.3 % (35.0-42.0); Hemoglobin 12.5 g/dL (11.7-13.8); Mean Corpuscular HGB Conc 32.6 g/dL (32-36); Mean Corpuscular Hemoglobin 30.9 pg (27.0-31.0); Mean Corpuscular Volume 94.6 fL (78.0-102.0); Mean Platelet Volume 9.4 fl (9.2-11.8); Platelet Count Result 152 K/mm3 (150-420); Red Blood Count 4.05 M/mm3 (4.20-5.40); Red Cell Distribution Width 13.4 % (11.6-14.4); White Blood Count 2.8 K/mm3 (4.8-10.8)
[2025-01-25 12:16] LABS: Alanine Aminotransferase 82 U/L (6-35); Albumin Level 4.2 g/dL (3.5-5.1); Alkaline Phosphatase 88 U/L (38-126); Anion Gap 4 mmol/L (4-12); Aspartate Amino Transferase 60 U/L (14-36); Bilirubin,Total 0.5 mg/dL (0.2-1.3); Blood Urea Nitrogen 13 mg/dL (7-17); Carbon Dioxide 27 mmol/L (22-30); Chloride 108 mmol/L (98-107); Estimated Glomerular Filt Rate > 60; Glucose 96 mg/dL (65-110); Osmolality Calculated 288 mOsm/kg (285-295); Potassium 4.3 mmol/L (3.4-5.0); Sodium 139 mmol/L (137-145); Total Protein 6.9 g/dL (6.3-8.2)
[2025-01-25 12:35] LABS: Total Cells Counted 100
[2025-01-25 12:36] LABS: Anisocytosis 1+; Band Neutrophils Percent 0 % (0-6); Eosinophils Absolute Manual 0.02 K/mm3 (0.02-0.50); Eosinophils Percent Manual 1 % (1-6); Lymphocytes Absolute Manual 0.64 K/mm3 (1.1-4.5); Lymphocytes Percent Manual 23 % (18-44); Monocytes Absolute Manual 0.47 K/mm3 (0.1-0.90); Monocytes Percent Manual 17 % (3-9); Neutrophils Absolute Manual 1.65 K/mm3 (1.3-6.7); Neutrophils Percent Manual 59 % (46-73); Platelet Estimate Adequate (Adequate); Poikilocytosis 1+; Schistocytes None Seen
== END 2025-01-25 11:36 | disposition home or self-care (01) ==
LOC: CHSTREATRM 11:37
PROVIDERS: PCP Internal Medicine Hematology; Visit Provider Internal Medicine Hematology
DX: Z51.81 Encounter for therapeutic drug level monitoring (principal); Z79.899 Other long term (current) drug therapy; C91.10 Chronic lymphocytic leukemia of B-cell type not having achieved remission
CPT/HCPCS: 36415; 36591; 80053; 84443; 85025

== ENCOUNTER 2025-02-03 10:21 | Outpatient (CLI) | payer MEDICARE, BC, SELFPAY ==
--- NOTE | ~2025-02-03 | CT_ITS ---
CT of the Abdomen and Pelvis: Indication: Weight loss Technique: 2.5 mm axial scans were obtained through the abdomen and pelvis following intravenous adm inistration of 100 cc of Omnipaque 350. Dose reduction technique was used on this scan by utilizing a utomated exposure control and iterative reconstruction technique. The dose-length product (DLP) was 1 84.30 mGy-cm. COMPARISON: 02/23/2024 Findings: Scans through the lung bases are unremarkable. The liver, pancreas, adrenals and kidneys are within normal limits. Stable small hypodense splenic ma sses, indeterminate. Possible mild gallbladder wall thickening, similar to prior exam. There are athe rosclerotic calcifications of the aorta. No lymphadenopathy. No bowel obstruction or bowel wall thickening. There is no evidence to suggest acute appendicitis. Images through the pelvis were performed. Urinary bladder unremarkable. No pelvic mass seen. Impression: No definite acute abnormality. Questionable minimal gallbladder wall thickening, similar to prior exam, nonspecific. Stable small hypodense splenic masses, indeterminate. Reviewed, dictated and finalized at [facility]. Impression: No definite acute abnormality. Questionable minimal gallbladder wall thickening, similar to prior exam, nonspe cific. Stable small hypodense splenic masses, indeterminate.
--- OUTSIDE RECORDS SUMMARY | 2025-02-03 10:27 | XMS_ITS ---
Author Organization Unknown Address [address] [place], [place] [phone] Phone Care Team Providers Care Child Care Associate Teacher Name Role Phone ROSMERY Bass Attending Unavailable Immunization Immunization Date Status Additional Notes Code Code System DT (pediatric) 12/10/2004 Completed 28 CVX Pneumococcal conjugate PCV 13 12/17/2020 Completed 133 CVX Influenza, split virus, trivalent, PF 06/06/2024 Completed 140 CVX Influenza, split virus, quadrivalent, preservative 07/01/2021 [...] em Smoking History Never smoker (Never Smoked) 662107059 SNOMED CT Sex Female Assessment You had [...] Code System UNSPECIFIED ABNORMALITIES OF BREATHING active 205246238 SNOMED-CT Allergies and Adverse Reactions Allergy Substance Reaction Severity Start Date Concern Status Code Code System ERYTHROMYCIN Rash (SNOMED-CT: 110159874) Active 4053 RxNorm METRONIDAZOLE Active 6922 RxNorm AMOXAPINE Active 722 RxNorm GEMFIBROZIL Active 4719 RxNorm PRAVASTATIN SODIUM Fever (SNOMED-CT: 426182134) Active 135335 RxNorm EPINEPHRINE HCL-SODIUM CHLORIDE HEART PALPITATIONS (SNOMED-CT: null) Active 3992 RxNorm Plan of Treatment CT Abdomen/Pelvis W Contrast (46386) CT Chest/Lung W Contrast (98477) 2022 CT Abdomen/Pelvis W Contrast (38204) CT Chest/Lung W Contrast (76433) 2022 Bone Density Dexa 05/13/2024 Digital Medina Screen Bilateral (78522) Encounters Encounter Diagnosis Start Date Code Code Sys tem Screening mammography 05/09/2024 03808678 SNOMED -CT Personal Care Team Section Imaging Narrative Notes [facility] 05/12/2024 12:38 [place] [address] RADIOLOGY REPORT Patient Number: [id number] Patient Name: HARIKA SALAZAR Type: O/P MR Number: [id number] : 1955 Age: 68 Sex: F Room #: Admit Date: 05/09/24 Discharge Date 05/09/24 Ordering Physician: ROSMERY Bass Family Physician: ROSMERY Cazares Physician: X-Ray Number : [id number] DIG 3D MEDINA SCREENING B[place]ATER[place] 38137 COMPLETE:05/09/24 13:33 35090 ([employer]-DIG 3D MEDINA SCREENING BILATERAL: screening See Scanned Image Attachment for Report Dictated By: Trans Initials: XX Trans Date: 05/12/24 12:37 <<REPDIST>>
--- OUTSIDE RECORDS SUMMARY | 2025-02-03 10:27 | XMS_ITS ---
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 MF: ELISABET Report ID: [id number] Reading Location: [id number] Social History Type Status Start Date End Date Code Code Syst em Smoking History Never smoker (Never Smoked) 026762726 SNOMED CT Sex Female Assessment You had [...] Code System UNSPECIFIED ABNORMALITIES OF BREATHING active 237781431 SNOMED-CT Allergies and Adverse Reactions Allergy Substance Reaction Severity Start Date Concern Status Code Code System ERYTHROMYCIN Rash (SNOMED-CT: 104703396) Active 4053 RxNorm METRONIDAZOLE Active 6922 RxNorm AMOXAPINE Active 722 RxNorm GEMFIBROZIL Active 4719 RxNorm PRAVASTATIN SODIUM Fever (SNOMED-CT: 080021321) Active 611557 RxNorm EPINEPHRINE HCL-SODIUM CHLORIDE HEART PALPITATIONS (SNOMED-CT: null) Active 3992 RxNorm Plan of Treatment CT Abdomen/Pelvis W Contrast (11975) CT Chest/Lung W Contrast (53695) 2022 CT Abdomen/Pelvis W Contrast (60850) CT Chest/Lung W Contrast (38872) 2022 Bone Density Dexa 05/13/2024 Digital Medina Screen Bilateral (84551) Encounters Encounter Diagnosis Start Date Code Code Sys tem Menopause present 05/13/2024 388720989 [employer] Personal Care Team Section Imaging Narrative Notes
--- OUTSIDE RECORDS SUMMARY | 2025-02-03 10:27 | XMS_ITS ---
Author Organization Unknown Address [address] [place] [phone] Phone Care Team Providers Care Drive In Teller Name Role Phone CHERI ESCUDERO Attending Unavailable ROSMERY Bass Primary Unavailable Immunization Immunization Date Status Additional Notes [...] zoster recombinant 08/02/2019 Completed 187 CVX Results WRIST 3V LEFT - Completed: 0 02/01/2025 10:28 LOINC: \TM00\\12PI\\DRAo\\BM09\ \MRHo\ [address] [address] ---------NAME--------- NUMBER SEX AGE ADMIT DISC. XRAY# F/C TYPE HARIKA SALAZAR [id number] F 69 02/01/25 02/01/25 63530 MB O/P DATE OF : 1955 M/R# [id number] PH#: [phone] RM \MRHx\ LOCATION: TRANSCRIBED: 02/01/25 12:51 WRIST 3V LEFT 01734 COMPLETED:02/01/25 10:28 TLS [id number] {REASON-WRIST: GANGLION CYST PHYSICIAN: CHERI NEUMANN Y R A D I O L O G Y R E P O R T INDICATION: GANGLION CYST TECHNIQUE: 4 radiographic views of the left wrist were obtained. COMPARISON: None FINDINGS: There is no evidence of acute fracture or dislocation.The visualized joint space is well maintained.The alignment is anatomical.The surrounding soft tissues are unremarkable.There is no bony lesions or erosions identified. IMPRESSION: No acute fracture. TENDER \ITLo\ \UNDo\ \UNDx\ \ITLx\ Reviewed and Electronically Signed by: Micky Tang MD Signed Date: 02/01/25 12:51 Social History Type Status Start Date End Date Code Code Syst em Smoking History Never smoker (Never Smoked) 506493678 SNOMED CT Sex Female Assessment You had [...] Code System UNSPECIFIED ABNORMALITIES OF BREATHING active 892015654 SNOMED-CT Allergies and Adverse Reactions Allergy Substance Reaction Severity Start Date Concern Status Code Code System ERYTHROMYCIN Rash (SNOMED-CT: 993751605) Active 4053 RxNorm METRONIDAZOLE Active 6922 RxNorm AMOXAPINE Active 722 RxNorm GEMFIBROZIL Active 4719 RxNorm PRAVASTATIN SODIUM Fever (SNOMED-CT: 394728469) Active 092853 RxNorm EPINEPHRINE HCL-SODIUM CHLORIDE HEART PALPITATIONS (SNOMED-CT: null) Active 3992 RxNorm Plan of Treatment CT Abdomen/Pelvis W Contrast (36388) CT Chest/Lung W Contrast (30159) 2022 CT Abdomen/Pelvis W Contrast (21447) CT Chest/Lung W Contrast (69930) 2022 Bone Density Dexa 05/13/2024 Digital Medina Screen Bilateral (71416) Encounters Encounter Diagnosis Start Date Code Code Sys tem Ganglion cyst 02/01/2025 539589959 SNOMED-CT Personal Care Team Section Imaging Narrative Notes [facility] 02/01/2025 12:[address] [address] ---------NAME--------- NUMBER SEX AGE ADMIT DISC. XRAY# F/C TYPE SHABAZZ MADELAINE SALAZAR [id number] F 69 02/01/25 02/01/25 68684 MB O/P DATE OF : 1955 M/R# [id number] #: [id number] LOCATION: TRANSCRIBED: 02/01/25 12:51 WRIST 3V LEFT 68075 COMPLETED:02/01/25 10:28 TLS [id number] {REASON-WRIST: GANGLION CYST PHYSICIAN: CHERI NEUMANN Y RADIOLOGY REPORT INDICATION: GANGLION CYST TECHNIQUE: 4 radiographic views of the left wrist were obtained. COMPARISON: None FINDINGS: There is no evidence of acute fracture or dislocation.The visualized joint space is well maintained.The alignment is anatomical.The surrounding soft tissues are unremarkable.There is no bony lesions or erosions identified. IMPRESSION: No acute fracture. TENDER Reviewed and Electronically Signed by: Micky Tang MD Signed Date: 02/01/25 12:51
== END 2025-02-03 10:22 | disposition home or self-care (01) ==
PROVIDERS: PCP Internal Medicine Hematology; Visit Provider Internal Medicine Hematology
DX: C91.10 Chronic lymphocytic leukemia of B-cell type not having achieved remission (principal); D73.9 Disease of spleen, unspecified
CPT/HCPCS: 74177; Q9967

== ENCOUNTER 2025-02-28 10:20 | Outpatient (CLI) | payer MEDICARE, BC, SELFPAY ==
--- OUTSIDE RECORDS SUMMARY | 2025-02-28 10:31 | XMS_ITS ---
Author Organization Unknown Address [address] [place] [phone] Phone Care Team Providers Care Corporate Communications Intern Name Role Phone CHERI ESCUDERO Attending Unavailable [...] Completed: 0 02/01/2025 10:28 LOINC: \TM00\\12PI\\DRAo\\BM09\ \MRHo\ [address] [address] ---------NAME--------- NUMBER SEX AGE ADMIT DISC. XRAY# F/C TYPE HARIKA SALAZAR [id number] F 69 02/01/25 02/01/25 51083 MB O/P DATE OF : 1955 M/R# [id number] PH#: [phone] RM \MRHx\ LOCATION: TRANSCRIBED: 02/01/25 12:51 WRIST 3V LEFT 63255 COMPLETED:02/01/25 10:28 TLS [id number] {REASON-WRIST: GANGLION CYST PHYSICIAN: CHERI NEUMANN Y [...] or erosions identified. IMPRESSION: No acute fracture. D CONTACT PERSON \ITLo\ \UNDo\ \UNDx\ \ITLx\ Reviewed and Electronically Signed by: Micky Tang MD Signed Date: 02/01/25 12:51 Social History Type Status Start Date End Date Code Code Syst em Smoking History Never smoker (Never Smoked) 492798227 SNOMED CT Sex Female Assessment You had [...] Code System UNSPECIFIED ABNORMALITIES OF BREATHING active 355561539 SNOMED-CT Allergies and Adverse Reactions Allergy Substance Reaction Severity Start Date Concern Status Code Code System ERYTHROMYCIN Rash (SNOMED-CT: 240880287) Active 4053 RxNorm METRONIDAZOLE Active 6922 RxNorm AMOXAPINE Active 722 RxNorm GEMFIBROZIL Active 4719 RxNorm PRAVASTATIN SODIUM Fever (SNOMED-CT: 481094924) Active 359141 RxNorm EPINEPHRINE HCL-SODIUM CHLORIDE HEART PALPITATIONS (SNOMED-CT: null) Active 3992 RxNorm Plan of Treatment CT Abdomen/Pelvis W Contrast (09601) CT Chest/Lung W Contrast (03616) 2022 CT Abdomen/Pelvis W Contrast (50306) CT Chest/Lung W Contrast (56450) 2022 Bone Density Dexa 05/13/2024 Digital Medina Screen Bilateral (70203) Encounters Encounter Diagnosis Start Date Code Code Sys tem Ganglion cyst 02/01/2025 186445655 SNOMED-CT Personal Care Team Section Imaging Narrative Notes [facility] 02/01/2025 12:[address] [address] ---------NAME--------- NUMBER SEX AGE ADMIT DISC. XRAY# F/C TYPE SHABAZZ MADELAINE SALAZAR [id number] F 69 02/01/25 02/01/25 67866 MB O/P DATE OF : 1955 M/R# [id number] #: [id number] LOCATION: TRANSCRIBED: 02/01/25 12:51 WRIST 3V LEFT 90080 COMPLETED:02/01/25 10:28 TLS 40985 {REASON-WRIST: GANGLION CYST PHYSICIAN: CHERI NEUMANN Y RADIOLOGY REPORT INDICATION: GANGLION CYST TECHNIQUE: 4 radiographic views of the left wrist were obtained. COMPARISON: None FINDINGS: There is no evidence of acute fracture or dislocation.The visualized joint space is well maintained.The alignment is anatomical.The surrounding soft tissues are unremarkable.There is no bony lesions or erosions identified. IMPRESSION: No acute fracture. D CONTACT PERSON Reviewed and Electronically Signed by: Micky Tang MD Signed Date: 02/01/25 12:51
--- OUTSIDE RECORDS SUMMARY | 2025-02-28 10:31 | XMS_ITS ---
Author Organization Unknown Address [address] [place], [place] [phone] Phone Care Team Providers Care Policy Analyst Name Role Phone ROSMERY Bass Attending Unavailable [...] em Smoking History Never smoker (Never Smoked) 715685071 SNOMED CT Sex Female Assessment You had [...] Code System UNSPECIFIED ABNORMALITIES OF BREATHING active 679715577 SNOMED-CT Allergies and Adverse Reactions Allergy Substance Reaction Severity Start Date Concern Status Code Code System ERYTHROMYCIN Rash (SNOMED-CT: 482083595) Active 4053 RxNorm METRONIDAZOLE Active 6922 RxNorm AMOXAPINE Active 722 RxNorm GEMFIBROZIL Active 4719 RxNorm PRAVASTATIN SODIUM Fever (SNOMED-CT: 588190764) Active 427762 RxNorm EPINEPHRINE HCL-SODIUM CHLORIDE HEART PALPITATIONS (SNOMED-CT: null) Active 3992 RxNorm Plan of Treatment CT Abdomen/Pelvis W Contrast (75118) CT Chest/Lung W Contrast (44985) 2022 CT Abdomen/Pelvis W Contrast (48064) CT Chest/Lung W Contrast (51472) 2022 Bone Density Dexa 05/13/2024 Digital Medina Screen Bilateral (41644) Encounters Encounter Diagnosis Start Date Code Code Sys tem Screening mammography 05/09/2024 66827320 SNOMED -CT Personal Care Team Section Imaging Narrative Notes [facility] 05/12/2024 12:38 [place] [address] RADIOLOGY REPORT Patient Number: [id number] Patient Name: HARIKA SALAZAR Type: O/P MR Number: [id number] : 1955 Age: 68 Sex: F Room #: Admit Date: 05/09/24 Discharge Date 05/09/24 Ordering Physician: ROSMERY Bass Family Physician: ROSMERY Cazares Physician: X-Ray Number : [id number] DIG 3D MEDINA SCREENING BILATERA 53340 COMPLETE:05/09/24 13:33 79983 (REASONS-DIG 3D MEDINA SCREENING BILATERAL: screening See Scanned Image Attachment for Report Dictated By: Trans Initials: XX Trans Date: 05/12/24 12:37 <<REPDIST>>
--- OUTSIDE RECORDS SUMMARY | 2025-02-28 10:32 | XMS_ITS ---
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 MF: ELISABET Report ID: [id number] Reading Location: [id number] Social History Type Status Start Date End Date Code Code Syst em Smoking History Never smoker (Never Smoked) 406334513 SNOMED CT Sex Female Assessment You had [...] Code System UNSPECIFIED ABNORMALITIES OF BREATHING active 832855275 SNOMED-CT Allergies and Adverse Reactions Allergy Substance Reaction Severity Start Date Concern Status Code Code System ERYTHROMYCIN Rash (SNOMED-CT: 548939605) Active 4053 RxNorm METRONIDAZOLE Active 6922 RxNorm AMOXAPINE Active 722 RxNorm GEMFIBROZIL Active 4719 RxNorm PRAVASTATIN SODIUM Fever (SNOMED-CT: 816542062) Active 573278 RxNorm EPINEPHRINE HCL-SODIUM CHLORIDE HEART PALPITATIONS (SNOMED-CT: null) Active 3992 RxNorm Plan of Treatment CT Abdomen/Pelvis W Contrast (38990) CT Chest/Lung W Contrast (32834) 2022 CT Abdomen/Pelvis W Contrast (90692) CT Chest/Lung W Contrast (08564) 2022 Bone Density Dexa 05/13/2024 Digital Medina Screen Bilateral (28226) Encounters Encounter Diagnosis Start Date Code Code Sys tem Menopause present 05/13/2024 075573600 [employer] Personal Care Team Section Imaging Narrative Notes
--- OUTSIDE RECORDS SUMMARY | 2025-02-28 10:32 | XMS_ITS | Clinical Summary ---
Author Organization [facility] Address [address] [place] [address] Care Team Providers Care Hospitality Associate Name Role Phone Kip Hanson MD Primary Care Provider [phone] Allergies Active Allergy Reactions Criticality Noted Date Comments Erythromycin Rash Low 06/30/2023 Epinephrine Palpitations Low 06/30/2023 Metronidazole Other (see comment) 06/30/2023 Patient unsure of reaction Statins Other (see comment) 06/30/2023 Flu like symptoms Medications atovaquone (MEPRON) 750 MG/5ML suspension Take 10 mLs (1,500 mg total) by mouth daily. 07/12/20 24 Active escitalopram (LEXAPRO) 20 MG tablet Take 1 tablet (20 mg total) by mouth daily. 06/29/20 24 Active lidocaine (LIDODERM) 5 % Place 1 patch onto the skin daily. 02/24/20 24 Active lidocaine-pril ocaine (EMLA) cream Apply topically as needed (1 hr before procedure). 07/27/20 24 Active ondansetron (ZOFRAN) 8 MG tablet Take 1 tablet (8 mg total) by mouth every 8 (eight) hours as needed. 03/30/20 24 Active prednisoLONE acetate (PRED FORTE) 1 % ophthalmic suspension Place 1 drop into the right eye 3 (three) times daily. 10/12/19 24 Active valACYclovir (VALTREX) 500 MG tablet Take 1 tablet (500 mg total) by mouth 2 (two) times daily. 09/26/19 25 Active omeprazole (PRILOSEC) 40 MG capsule Take 1 capsule (40 mg total) by mouth daily. Active loratadine (CLARITIN) 10 MG tablet Take 1 tablet (10 mg total) by mouth daily. 11/28/19 025 Discontinued venetoclax (VENCLEXTA) 100 MG tablet Take 4 tablets by mouth daily. 025 Discontinued Active Problems No known active problems Encounters Date Type Department Care Team Description 02/22/2025 10:57 AM CDT Anesthesia Event [facility] [address] [place] [address] [place] [address] Christiano Tripp CRNA 02/22/2025 10:35 AM CDT - 02/22/2025 11:06 AM CDT Surgery [facility] [address] [place] [address] [place] [address] Jany Cheema MD CATARACT EXTRACTION WITH INTRAOCULAR LENS IMPLANTATION - LEFT EYE 02/22/2025 9:27 AM CDT - 02/22/2025 12:11 PM CDT Hospital Encounter [facility] [address] [place] [address] [place] [address] Jany Cheema MD Discharge Disposition: Home or Self Care (Routine Discharge) 02/22/2025 Travel 02/14/2025 Travel from Last 3 Months Social History Tobacco Use Types Packs/Day Years Used Date Smoking Tobacco: Never Smokeless Tobacco: Never Tobacco Cessation:Counseling Given: Not Answered Alcohol Use Standard Drinks/Week Comments Not Currently 0 (1 standard drink = 0.6 oz pur e alcohol) rarely Comments Unknown Sex and Gender Information Value Date Recorded Sex Assigned at Female 10/04/2024 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 CONSTRUCTION PROJECT ENGINEER Legal Sex Female 10:46 AM CONSTRUCTION PROJECT ENGINEER Gender Identity Not on file Sexual Orientation Not on file Last Filed Vital Signs Vital Sign Reading Time Taken Comments Blood Pressure 117/64 02/22/2025 11:37 AM CDT Pulse 80 02/22/2025 11:37 AM CDT Temperature 36.9 C (98.4 F) 02/22/2025 11:37 AM CDT Respiratory Rate 16 02/22/2025 11:37 AM CDT Oxygen Saturation 100% 02/22/2025 11:37 AM CDT Inhaled Oxygen Concentration - - Weight 54.4 kg (120 lb) 02/27/2025 9:03 AM CDT Height 162.6 cm (5' 4) 02/27/2025 9:03 AM CDT Body Mass Index 20.6 02/27/2025 9:03 AM CDT Plan of Treatment Upcoming Encounters Date Type Department Care Team (Late st Contact Info) Description 03/01/2025 11:22 AM CDT Hospital Encounter [facility] [place] [place] [address] [place] [address] Jany Cheema MD [address] [place] [address] 03/01/2025 11:22 AM CDT Anesthesia Event [facility] [address] [place] [address] Kim Chong CRNA [address] [place] [address] 03/01/2025 11:22 AM CDT - 03/01/2025 11:[address] [facility] [address] [place] [address] Jany Cheema MD [address] [place] [address] CATARACT EXTRACTION WITH INTRAOCULAR LENS IMPLANTATION - RIGHT EYE Scheduled Procedures Name Priority Associated Diagnoses Date/Ti me CATARACT REMOVAL WITH IOL IMPLANT H25.13 CATARACT 03/01/2025 11:22 AM CDT Health Maintenance Due Date Last Done Comments [...] on patient's age to complete this topic Goals Goal Patient Goal Type Associated Problems Recent Progress Patient-Stated? Author Autogenera sofie Goal Care Plan Autogenerated Problem No Elizabeth Hough RN Medical Devices Implanted Type Area Telephone Service Representative Device Identifier Shelf Expiration Date Model / Serial / Lot [place] [employer] Implanted:Qty: 1 on 02/22/2025 by Jany Cheema MD at [facility] Left: Eye [id number] 09/07/2028 / [id number] / Additional Health Concerns Active Problems Noted Date Diagnosed Date Autogenerated Problem 02/09/2025 Insurance MEDICARE [facility] Care Teams Hospitality Associate Relationship Specialty Start Date End Date Kip Hanson MD PCP - General FAMILY PRACTICE 10/24/20
[2025-02-28 11:00] VITALS: BMI 21.9
[2025-02-28] MEDS: HEPARIN SODIUM LOCK FLUSH 500 UNITS/5 ML SYRINGE (11:20)
--- NOTE | 2025-02-28 11:34 | PC.NURSE ---
Tolerated port drawn for lab specimen well. Port site asystomatic of S/sx infection.
[2025-02-28 11:35] LABS: Hematocrit 35.3 % (35.0-42.0); Hemoglobin 11.3 g/dL (11.7-13.8); Mean Corpuscular HGB Conc 32.0 g/dL (32-36); Mean Corpuscular Hemoglobin 30.3 pg (27.0-31.0); Mean Corpuscular Volume 94.6 fL (78.0-102.0); Platelet Count Result 140 K/mm3 (150-420); Red Blood Count 3.73 M/mm3 (4.20-5.40); White Blood Count 2.1 K/mm3 (4.8-10.8)
[2025-02-28 11:48] LABS: Alanine Aminotransferase 91 U/L (6-35); Albumin Level 4.0 g/dL (3.5-5.1); Alkaline Phosphatase 72 U/L (38-126); Anion Gap 5 mmol/L (4-12); Aspartate Amino Transferase 57 U/L (14-36); Bilirubin,Total 0.4 mg/dL (0.2-1.3); Blood Urea Nitrogen 16 mg/dL (7-17); Calcium 8.8 mg/dL (8.4-10.2); Carbon Dioxide 27 mmol/L (22-30); Chloride 107 mmol/L (98-107); Estimated CRCL calculation 56 ml/min; Estimated Glomerular Filt Rate > 60; Glucose 92 mg/dL (65-110); Osmolality Calculated 289 mOsm/kg (285-295); Potassium 4.4 mmol/L (3.4-5.0); Sodium 139 mmol/L (137-145); Total Protein 6.6 g/dL (6.3-8.2)
[2025-02-28 13:16] LABS: Band Neutrophils Percent 0 % (0-6); Basophils Absolute Manual 0.02 K/mm3 (0-0.1); Basophils Percent Manual 1 % (0-1); Eosinophils Absolute Manual 0.02 K/mm3 (0.02-0.50); Lymphocytes Absolute Manual 0.92 K/mm3 (1.1-4.5); Lymphocytes Percent Manual 44 % (18-44); Monocytes Absolute Manual 0.16 K/mm3 (0.1-0.90); Monocytes Percent Manual 8 % (3-9); Neutrophils Absolute Manual 0.98 K/mm3 (1.3-6.7); Neutrophils Percent Manual 47 % (46-73); Total Cells Counted 100
[2025-02-28 13:17] LABS: Anisocytosis 2+; Hypochromasia 2+; Schistocytes None Seen
== END 2025-02-28 10:21 | disposition home or self-care (01) ==
LOC: CHSLAB 10:24 → CHSTREATRM 10:27
PROVIDERS: PCP Internal Medicine Hematology; Visit Provider Internal Medicine Hematology
DX: C91.10 Chronic lymphocytic leukemia of B-cell type not having achieved remission (principal)
CPT/HCPCS: 36415; 36591; 80053; 85025

== ENCOUNTER 2025-04-03 10:12 | Outpatient (CLI) | payer MEDICARE, BC, SELFPAY ==
[2025-04-03] MEDS: HEPARIN SODIUM LOCK FLUSH 500 UNITS/5 ML SYRINGE IV PUSH (10:51)
[2025-04-03 10:52] VITALS: BP 107/70; PULSE 92; RESP 14; TEMP 36.8; O2SAT 98; BMI 20.4
--- NOTE | 2025-04-03 10:58 | PC.NURSE ---
Tolerated monthly port flush well.
== END 2025-04-03 10:13 | disposition home or self-care (01) ==
PROVIDERS: PCP Internal Medicine Hematology; Visit Provider Internal Medicine Hematology
DX: Z45.2 Encounter for adjustment and management of vascular access device (principal); C91.10 Chronic lymphocytic leukemia of B-cell type not having achieved remission
CPT/HCPCS: 96523

== ENCOUNTER 2025-04-26 11:08 | Outpatient (CLI) | payer MEDICARE, BC, SELFPAY ==
[2025-04-26 11:29] LABS: Hematocrit 35.9 % (35.0-42.0); Hemoglobin 11.6 g/dL (11.7-13.8); Immature Granulocyte Percent A 0.4 % (0.0-0.0); Lymphocytes Absolute Auto 0.83 K/mm3 (1.10-4.50); Mean Corpuscular HGB Conc 32.3 g/dL (32-36); Mean Corpuscular Hemoglobin 30.8 pg (27.0-31.0); Mean Corpuscular Volume 95.2 fL (78.0-102.0); Nucleated Red Blood Cells Absolute Auto 0.00 K/mm3 (0.00-0.00); Nucleated Red Blood Cells Perc 0.0 % (0-0.0); Platelet Count Result 174 K/mm3 (150-420); Red Blood Count 3.77 M/mm3 (4.20-5.40); White Blood Count 4.7 K/mm3 (4.8-10.8)
[2025-04-26 11:40] LABS: Alanine Aminotransferase 95 U/L (6-35); Albumin Level 4.4 g/dL (3.5-5.1); Alkaline Phosphatase 87 U/L (38-126); Anion Gap 8 mmol/L (4-12); Aspartate Amino Transferase 54 U/L (14-36); Bilirubin,Total 0.4 mg/dL (0.2-1.3); Blood Urea Nitrogen 17 mg/dL (7-17); Calcium 9.6 mg/dL (8.4-10.2); Carbon Dioxide 27 mmol/L (22-30); Chloride 106 mmol/L (98-107); Estimated Glomerular Filt Rate > 60; Glucose 102 mg/dL (65-110); Osmolality Calculated 293 mOsm/kg (285-295); Potassium 5.0 mmol/L (3.4-5.0); Sodium 141 mmol/L (137-145); Total Protein 7.1 g/dL (6.3-8.2)
[2025-04-27 13:08] LABS: Immunoglobulin A, Qn 95 mg/dL (87-352); Immunoglobulin G, Qn 1051 mg/dL (586-1602); Immunoglobulin M, Qn 10 mg/dL (26-217)
== END 2025-04-26 11:09 | disposition home or self-care (01) ==
LOC: CHSLAB 11:11 → CHSTREATRM 11:13
PROVIDERS: PCP Internal Medicine Hematology; Visit Provider Internal Medicine Hematology
DX: C91.10 Chronic lymphocytic leukemia of B-cell type not having achieved remission (principal)
CPT/HCPCS: 36415; 36591; 80053; 82784; 85025

== ENCOUNTER 2025-06-22 10:15 | Outpatient (CLI) | payer MEDICARE, BC, SELFPAY ==
[2025-06-22 10:25] VITALS: BMI 20.4
[2025-06-22 10:53] VITALS: BP 106/60; PULSE 84; RESP 14; TEMP 36.6; O2SAT 99
[2025-06-22] MEDS: HEPARIN SODIUM LOCK FLUSH 500 UNITS/5 ML SYRINGE IV PUSH (10:55)
== END 2025-06-22 10:16 | disposition home or self-care (01) ==
PROVIDERS: PCP Internal Medicine Hematology; Visit Provider Internal Medicine Hematology
DX: Z45.2 Encounter for adjustment and management of vascular access device (principal); C91.10 Chronic lymphocytic leukemia of B-cell type not having achieved remission
CPT/HCPCS: 96523

== ENCOUNTER 2025-07-24 10:07 | Outpatient (CLI) | payer MEDICARE, BC, SELFPAY ==
--- NOTE | ~2025-07-24 | CT_ITS ---
EXAMINATION: CT soft tiss nk chst ab pel w DATE: 07/24/2025 11:58 INDICATION: Lymphocytic leukemia. TECHNIQUE: Computed tomography (CT) of the neck, chest, abdomen, and pelvis was performed without intravenous contrast. Automated exposure control and iterative reconstruction technique were employed. The dose-length product was 827.17 mGy-cm. COMPARISON: CT abdomen and pelvis 02/03/2025, 02/23/24 FINDINGS: NECK CT: There are no pathologically enlarged lymph nodes. There are nodules in the thyroid measuring up to 12 mm, likely not clinically significant. There is a right internal jugular port with tip in right atrium. There is mild mucosal thickening in the paranasal sinuses. The mastoid air cells are normal. There is severe cervical spondylosis. CHEST CT: The lungs demonstrate mild atelectasis. There are a few scattered nodules in the lungs measuring up to 3 mm, likely benign. No pleural effusion. The heart size is normal. There are coronary artery calcifications. No pericardial effusion. There are no pathologically enlarged lymph nodes. There is a small sliding hiatal hernia. There is a chronic compression fracture of T12. There is severe thoracic spondylosis. ABDOMEN/PELVIS CT: The liver is normal. There are gallstones in the gallbladder, which is normal in size. There are three hypodense masses in the spleen measuring up to 11 mm without change from 02/23/24, likely granulomatous disease. The pancreas and adrenal glands are normal. There is cortical thinning of the kidneys. There are two 2 mm stones in right kidney. Stool distends the colon. The appendix is normal. There are no dilated loops of bowel. There are no pathologically enlarged lymph nodes. There is no free intraperitoneal fluid. There is a chronic compression fracture of L4. There is mild lumbar spondylosis. IMPRESSION: 1. No lymphadenopathy. 2. Small splenic lesions, stable from 02/23/24, likely granulomatous disease. Reviewed, dictated and finalized at location [facility]
[2025-07-24 11:05] LABS: Hematocrit 36.6 % (35.0-42.0); Hemoglobin 11.7 g/dL (11.7-13.8); Immature Granulocyte Percent A 0.4 % (0.0-0.0); Lymphocytes Absolute Auto 0.80 K/mm3 (1.10-4.50); Mean Corpuscular HGB Conc 32.0 g/dL (32-36); Mean Corpuscular Hemoglobin 29.8 pg (27.0-31.0); Mean Corpuscular Volume 93.1 fL (78.0-102.0); Nucleated Red Blood Cells Absolute Auto 0.00 K/mm3 (0.00-0.00); Nucleated Red Blood Cells Perc 0.0 % (0-0.0); Platelet Count Result 185 K/mm3 (150-420); Red Blood Count 3.93 M/mm3 (4.20-5.40); White Blood Count 4.7 K/mm3 (4.8-10.8)
[2025-07-24 11:19] LABS: Alanine Aminotransferase 48 U/L (6-35); Albumin Level 4.3 g/dL (3.5-5.1); Alkaline Phosphatase 101 U/L (38-126); Anion Gap 9 mmol/L (4-12); Aspartate Amino Transferase 49 U/L (14-36); Bilirubin,Total 0.3 mg/dL (0.2-1.3); Blood Urea Nitrogen 11 mg/dL (7-17); Calcium 9.4 mg/dL (8.4-10.2); Carbon Dioxide 29 mmol/L (22-30); Chloride 106 mmol/L (98-107); Estimated Glomerular Filt Rate > 60; Glucose 116 mg/dL (65-110); Osmolality Calculated 298 mOsm/kg (285-295); Potassium 3.9 mmol/L (3.4-5.0); Sodium 144 mmol/L (137-145); Total Protein 6.9 g/dL (6.3-8.2)
--- OUTSIDE RECORDS SUMMARY | 2025-07-24 11:25 | XMS_ITS | Clinical Summary ---
Author Organization [facility] Address [address] [place] [address] Care Team Providers Care Security Incident Response Specialist Name Role Phone Kip Botello MD Primary Care Provider [phone] Allergies Active Allergy Reactions Criticality Noted Date [...] needed (1 hr before procedure). 4 Active ondansetron (ZOFRAN) 8 MG tablet Take 1 tablet (8 mg total) by mouth every 8 (eight) hours as needed. 4 Active prednisoLONE acetate (PRED FORTE) 1 % ophthalmic suspension Place 1 drop into the right eye 3 (three) times daily. 4 Active valACYclovir (VALTREX) 500 MG tablet Take 1 tablet (500 mg total) by mouth 2 (two) times daily. 5 Active omeprazole (PRILOSEC) 40 MG capsule Take 1 capsule (40 mg total) by mouth daily. Active Active Problems No known active problems Encounters Date Type Department Care Team Description 07/07/2025 1:25 PM ACCOUNT LEADER - 07/07/2025 11:59 PM ACCOUNT LEADER Hospital Encounter [facility] [address] [place] [address] Kartik Mauricio MD Discharge Disposition: Home or Self Care (Routine Discharge) 07/07/2025 Orders Only [facility] [address] [place] [address] Kartik Mauricio MD 07/07/2025 Travel from Last 3 Months Social History Tobacco Use Types Packs/Day Years Used Date Smoking Tobacco: Never Smokeless Tobacco: Never Tobacco Cessation:Counseling Given: Not Answered Alcohol Use Standard Drinks/Week Comments Not Currently 0 (1 standard drink = 0.6 oz pur e alcohol) rarely Comments No Sex and Gender Information Value Date Recorded Sex Assigned at Female 10/04/2024 10:54 AM ACCOUNT LEADER Legal Sex Female 10:46 AM ACCOUNT LEADER Gender Identity Not on file Sexual Orientation Not on file Last Filed Vital Signs Vital Sign Reading Time Taken Comments Blood Pressure 106/70 03/01/2025 12:34 PM CDT Pulse 90 03/01/2025 12:30 PM CDT Temperature 36.7 C (98 F) 03/01/2025 12:30 PM CDT Respiratory Rate 16 03/01/2025 12:30 PM CDT Oxygen Saturation 98% 03/01/2025 12:30 PM CDT Inhaled Oxygen Concentration - - Weight 54.4 kg (120 lb) 02/27/2025 9:03 AM CDT Height 162.6 cm (5' 4) 02/27/2025 9:03 AM CDT Body Mass Index 20.6 02/27/2025 9:03 AM CDT Plan of Treatment Health Maintenance Due Date Last Done Comments Colorectal Cancer Screening Colonoscopy (10 Years) 1955 Hepatitis C 1973 Mammogram Screening 1995 DTaP, Tdap and Td Vaccines (1 - Tdap) 12/11/2004 12/10/2004 Annual Medicare Wellness Visit 2020 Dexa Scan (General) 2020 Pneumococcal Vaccine: 50+ Years (2 of 2 - PPSV23, PCV20, or PCV21) 02/11/2021 12/17/2020 COVID-19 Vaccine (1 - 2024- season) 2025 Influenza Adult (#1) 2025 06/06/2024, 06/08/2023, 05/26/2022, Additional history exists RSV Immunization or 60+ Years (1 - 1-dose 75+ series) 2030 Zoster Vaccines Completed 08/02/2019, 03/31/2019 Hepatitis A Vaccines Aged Out No long er eligible based on patient's age to complete this topic Meningococcal B Vaccine Aged Out No l onger eligible based on patient's age to complete this topic Meningococcal Vaccine Aged Out No girma chiquis eligible based on patient's age to complete this topic RSV Immunizations Under 20 Months Aged Out No longer eligible based on patient's age to complete this topic Medical Devices Implanted Type Area Alarm Security Or Surveillance Monitor Device Identifier Shelf Expiration Date Model / Serial / Lot Clareon Toric Implanted:Qty: 1 on 02/22/2025 by Jany Cheema MD at [facility] Left: Eye [id number] 09/07/2028 / [id number] / [employer] Implanted:Qty: 1 on 03/01/2025 by Jany Cheema MD at [facility] Right: Eye [employer] [id number] 10/19/2027 [id number] - [id number] / [id number] / Procedures Procedure Name Priority Date/Time Associated Diagnosis Comments CYTOPATH CERV/VAG THIN LAYER Routine 07/07/2025 9:28 AM ACCOUNT LEADER Cervical cancer screening HUMAN PAPILLOMAVIRUS, HIGH-RISK TYPES Routine 07/07/2025 8:00 AM ACCOUNT LEADER from Last 3 Months Results * Cytopath Cerv/Vag Thin Layer (07/07/2025 9:28 AM ACCOUNT LEADER) THIN PREP PAP [address] [address] Department of Pathology Pathology Report CERVICAL/VAGINAL PAP SMEAR REPORT Name: THANIA SHABAZZ Age: 2 1955 (Age: 69) Location[facility] Sex: F Collected Date: 07/07/2025 [facility] #: [id number] Date Received: 07/10/2025 Date Reported: 07/12/2025 Provider: KARTIK BOTELLO MD INTERPRETATION ABNORMAL RESULT CERVICAL/ENDOCERVI FLAVIO: SATISFACTORY FOR EVALUATION-PARTIAL LY OBSCURING INFLAMMATION. ATYPICAL SQUAMOUS CELLS-CANNOT EXCLUDE HIGH-GRADE SQUAMOUS INTRAEPITHELIAL LESION. ATROPHY. NEGATIVE FOR HIGH RISK HPV. The FDA approved Aptima HPV assay is an in vitro nucleic acid amplification test for the qualitative detection of E6/E7 viral messenger RNA (mRNA) from 14 high-risk types of human papillomavirus (HPV) in cervical specimens. The high-risk HPV types detected by the assay include: 16,18,31,33,35,39, 45,51,52,56,58,59, 66, and 68. Electronically Signed Out RODRÍGUEZ Richards MD (ASCP) CLINICAL HISTORY (Z12.4) SCREENING FOR CERVICAL CANCER PAP TEST SCREENING HISTORY OF ASCUS ThinPrep Pap Test with screening HR HPV testing requested, with reflex HPV 16/18 genotyping on negative cytology, positive HR HPV Date of Last Menstrual Period: UNKNOWN Menstrual Status: Post-Menopausal SPECIMEN SUBMITTED CERVICAL/ENDOCERVI FLAVIO Specimen Received:1 Thin Prep Vial, Image Assisted Pap (SMD) Please note: The Pap smear is not a diagnostic test. It is a screening test. Negative results on combined screening (Pap test and HPV-DNA) have a high negative predictive value (99.1-100 percent) for cervical cancer. The pap test is not effective in detecting cervical adenocarcinoma. [facility] SWAB CERVIX UTERI STRUCTURE / Unknown 07/07/2025 9:28 AM ACCOUNT LEADER 07/10/2025 9:28 AM ACCOUNT LEADER Comment:CERVICAL/ENDOCERVICA L us Kartik Mauricio MD PATHOLOGY/CYTOLOGY ORDERABLES Final Result [facility] [address] [place] [address], * HUMAN PAPILLOMAVIRUS, HIGH-RISK TYPES (07/07/2025 8:00 AM ACCOUNT LEADER) SPEC DESCRIPTION ENDOCERVIX 07/10/2025 9:42 AM ACCOUNT LEADER [facility] HPV DNA HIGH RISK NEGATIVE NEGATIVE 07/10/2025 3:25 PM ACCOUNT LEADER [facility] Comment:SEE CYTOLOGY REPORT 07/07/2025 8:00 AM ACCOUNT LEADER us Kartik Mauricio MD PATHOLOGY/CYTOLOGY ORDERABLES Final Result [facility] [address] [place] [address], from Last 3 Months Insurance MEDICARE [facility] Care Teams Security Incident Response Specialist Relationship Specialty Start Date End Date Kip Botello MD PCP - General FAMILY PRACTICE 10/24/20
== END 2025-07-24 10:08 | disposition home or self-care (01) ==
PROVIDERS: PCP Internal Medicine Hematology; Visit Provider Internal Medicine Hematology
DX: C91.10 Chronic lymphocytic leukemia of B-cell type not having achieved remission (principal)
CPT/HCPCS: 36415; 70491; 71260; 74177; 80053; 83615; 85025; Q9967